=== PATIENT | female | born 1965 | race Two or more races ===

== ENCOUNTER 2016-06-02 16:06 | Inpatient (IN) | payer OTHER ==
[~2016-06-02] VITALS: Ht 167.6 cm; Wt 85.7 kg
[2016-06-02 19:50] LABS: HEMATOCRIT 33.1 % (36.0-47.0); HEMOGLOBIN 10.4 g/dL (12.0-15.5); RED BLOOD COUNT 4.29 x10^6/uL (3.50-5.40); RED CELL DISTRIBUTION WIDTH 15.5 % (11.5-14.5); WHITE BLOOD COUNT 7.4 x10^3/uL (4.0-11.0)
[2016-06-02 20:08] LABS: ALBUMIN 2.8 g/dL (3.4-5.0); ALBUMIN/GLOBULIN RATIO 0.8 (1.0-1.7); CALCIUM 8.4 mg/dL (8.5-10.1); CREATININE 0.8 mg/dL (0.6-1.0); GFR 75.9; POTASSIUM 4.2 mmol/L (3.5-5.1); TOTAL BILIRUBIN 0.2 mg/dL (0.2-1.0); TOTAL PROTEIN 6.1 g/dL (6.4-8.2)
[2016-06-02 20:59] VITALS: BP 103/57
[2016-06-02] MEDS ORDERED: LUBI24CA5 PO (21:08)
[2016-06-02] MEDS ORDERED: GABA-586 PO (21:08)
[2016-06-02] MEDS ORDERED: ONDA4TAB7 PO (21:08)
[2016-06-02] MEDS ORDERED: LACO10SO PO (21:08)
[2016-06-02] MEDS ORDERED: LEVO100T5 PO (21:08)
[2016-06-02] MEDS ORDERED: MONT10TA9 PO (21:08)
[2016-06-02] MEDS ORDERED: CLOP75TA27 PO (21:08)
[2016-06-02] MEDS ORDERED: MORPHINE IR 15 MG TABLET PO PRN (21:15)
[2016-06-02] MEDS ORDERED: PROMETHAZINE 12.5 MG TABLET. PO PRN (21:15)
[2016-06-02] MEDS ORDERED: ZONISAMIDE 100 MG CAPSULE. PO SCH (22:00)
[2016-06-02] MEDS ORDERED: LACOSAMIDE 50 MG TABLET PO SCH (22:00)
[2016-06-02] MEDS: GABAPENTIN 300 MG CAPSULE. PO SCH (22:00)
[2016-06-02] MEDS ORDERED: ONDANSETRON ODT 4 MG TAB.RAPDIS PO PRN (22:00)
[2016-06-02] MEDS: MONTELUKAST SODIUM 10 MG TABLET. PO SCH (22:00)
[2016-06-02] MEDS ORDERED: ONDANSETRON PF 4 MG/2 ML VIAL. IV PRN (22:15)
[2016-06-02] MEDS: LUBIPROSTONE 8 MCG CAPSULE PO SCH (22:30)
[2016-06-02] MEDS: VIMPAT PO SCH (22:32)
[2016-06-02 23:14] VITALS: BP 104/61
[2016-06-03] MEDS ORDERED: NON FORMULARY ITEM (Ondansetron Hcl (Zofran) 1 TAB) PO SCH
[2016-06-03] MEDS: MORPHINE SULFATE 4 MG/ML DISP.SYRIN. IV PRN ×3 (02:45→21:23)
[2016-06-03 03:30] VITALS: BP 99/57
[2016-06-03 07:23] VITALS: BP 100/56
[2016-06-03] MEDS ORDERED: LUBIPROSTONE 8 MCG CAPSULE PO SCH (08:00)
[2016-06-03] MEDS: GABAPENTIN 300 MG CAPSULE. PO SCH ×3 (08:09→21:22)
[2016-06-03] MEDS: CLOPIDOGREL BISULFATE 75 MG TABLET PO SCH (08:10)
[2016-06-03] MEDS: LUBIPROSTONE 8 MCG CAPSULE PO SCH ×2 (08:10→21:22)
[2016-06-03] MEDS: LEVOTHYROXINE 100 MCG TABLET PO SCH (08:10)
[2016-06-03] MEDS: VIMPAT PO SCH ×2 (08:13→21:23)
[2016-06-03] MEDS: ONDANSETRON PF 4 MG/2 ML VIAL. IV PRN ×2 (09:04→21:23)
[2016-06-03 09:45] LABS: BILIRUBIN,URINE NEGATIVE (NEG); GLUCOSE,URINE NEGATIVE (NEG); NITRITE,URINE NEGATIVE (NEG); PH,URINE 6.5; PROTEIN,URINE NEGATIVE (NEG-TRACE)
[2016-06-03 10:24] LABS: BACTERIA,URINE MOD /HPF (0-FEW); RBC,URINE RARE /HPF (0-2); SQUAMOUS EPITHELIAL CELL,UR FEW /LPF
[2016-06-03 11:02] VITALS: BP 104/58
--- NOTE | 2016-06-03 13:46 | HP ---
ADMIT DATE: 06/02/2016 HISTORY OF PRESENT ILLNESS: This is a 50-year-old female patient, who was admitted to [facility] complaining of difficulty walking. She was admitted originally on 05/23/2016 with a complaint of feeling unwell the whole day. Her blood sugar has been low and was seen by Dr. Patterson and was discharged home, only to come back again 2 days ago, complaining that she is unable to walk with marked weakness in both lower extremities. She was extensively investigated and she refused to be seen by Dr. Patterson, and therefore, a decision was made to transfer her to [facility] to consult the Neurology Team in this hospital. I did speak with her neurologist's office of ____ in [place], [place] and his office note showed that she has idiopathic peripheral neuropathy and seizure, for which she is on an anticonvulsant in the form of lacosamide, as well as zonisamide. She has also bilateral carpal tunnel syndrome. She did have a surgery on her neck before for spinal stenosis, and whether that is relevant to her presentation, remains to be seen. PAST MEDICAL HISTORY: Significant for type 2 diabetes mellitus that was diagnosed in 2011. She also has multiple TIAs right-sided CVA with left side hemiplegia, hypothyroidism, cervical spinal stenosis, morbid obesity, obstructive sleep apnea, COPD, bronchial asthma, epilepsy, and idiopathic peripheral neuropathy as well as bilateral carpal tunnel syndrome. PAST SURGICAL HISTORY: Significant for: 1. Cervical spine surgery for spinal stenosis. 2. Gastric sleeve surgery. The patient lost about 89 pounds in over 2 years - surgery was done in 2013. She also has cholecystectomy, appendectomy, tubal ligation, total abdominal hysterectomy, and bilateral salpingo-oophorectomy. She has also had esophagogastroduodenoscopy and colonoscopy. ALLERGIES: SHE IS ALLERGIC TO TYLENOL, ASPIRIN, CODEINE, HYDROMORPHONE, IRON, LATEX, OXYCODONE, SHELLFISH, STRAWBERRY, AND TETRACYCLINE. MEDICATIONS: She is currently on the following medications: She is on Plavix 75 mg once a day, gabapentin 300 mg 3 times a day, lacosamide 50 mg twice a day, levothyroxine 100 mcg once a day, Amitiza 24 mcg twice a day, and montelukast sodium 10 mg at bedtime. She is also on zonisamide 300 mg p.o. at bedtime. FAMILY HISTORY: She has one older brother, who is healthy and one younger sister, who has multiple medical problems, and mother is alive in her 70s and has hypertension. Father is alive at the age of 79 and is known to have thyroid problem, diabetes mellitus, and hypertension. SOCIAL HISTORY: She is , has 2 sons and 1 daughter. She is an ex-smoker, quit in 2012. She does not drink alcohol or use any recreational drugs. She used to be a certified nursing expert medical writer. She is now on disability. REVIEW OF SYSTEMS: The patient denied any blurring of vision, cataract, glaucoma, or macular degeneration. Denied any earache, tinnitus, or sensorineural deafness. Denied any nosebleeds, stuffy nose, or postnasal drip. Denied any sore throat, sore tongue, toothache, hoarseness of voice, or difficulty swallowing. Denied any nausea, vomiting, diarrhea, or constipation. Denied any hematemesis, melena, or hematochezia. Denied any dysuria, frequency, or hematuria. Denied any chest pain, shortness of breath, orthopnea, or paroxysmal nocturnal dyspnea. Denied any cough, phlegm or hemoptysis. Her only complaint is weakness and inability to walk. PHYSICAL EXAMINATION: GENERAL: On examining her, she looked pale, but no jaundice, cyanosis, or thyromegaly. No jugular venous distension. No limb edema. VITAL SIGNS: Her heart rate was 93, blood pressure was 104/58, temperature was 97.7, respiratory rate was 17, and oxygen saturation was 95%. HEAD, EYES, EARS, NOSE, AND THROAT: Showed normocephalic, atraumatic. NECK: Supple. HEART: Showed normal first and second heart sounds with no gallop, rub, or murmur. CHEST: Clear to auscultation. No crepitation or rhonchi. ABDOMEN: Distended, soft, and nontender. NEUROLOGIC: She is awake, alert, and responding appropriately. Cranial nerves are intact. EXTREMITIES: She moves her upper extremities without difficulty. She claimed that she is unable to walk and she is mostly bed-bound and chair-bound. LABORATORY DATA: Showed a serum sodium of 146, potassium 4.2, chloride 109, bicarbonate 29, anion gap of 8, BUN 16, creatinine 0.8, and estimated GFR was 76 mL per minute. Her glucose was 140, calcium was 8.4. Total bilirubin, AST, and ALT were normal. Alkaline phosphatase was slightly elevated. CK was 28. Total protein was 6.1, albumin 2.8. Vitamin B12 was 305 pg/mL and TSH was 2.127. White cell count was 7,400, hemoglobin 10.4, hematocrit 33, MCV 77, and platelet count 283,000. Her sedimentation rate was 9. Her urinalysis was essentially unremarkable. PLAN: My plan is to continue with all her current medications, consult the Neurology Team, and decide on further management accordingly. GALDYS PHILLIP MD DR: JANIS/lexis JOB#: [id number] / [id number]
[2016-06-03] MEDS ORDERED: GADOBUTROL 10 MMOL/10 ML VIAL IV ONE (14:30)
--- NOTE | 2016-06-03 14:32 | PDOC2 ---
NEUROLOGY CONSULT Date of Admission Date of Admission DATE: 06/03/16 TIME: 14:19 Reason for Consult Reason for Consult: IMPRESSION: Worsening of LE weakness and pain x 4 days. Chronic LE weakness x 5 years. Peripheral neuropathy, LE. UTI Old CVA with left side mild weakness. Seizure? Degenerative C-spine disease s/p surgery in 2011. RECOMMENDATIONS/PLAN: C/L spine MRI w/wo contrast. lab: see orders. Continue Zonisamide home regimen. Add Neurontin 100 mg tid with titration up. OT/PT. Lab: TSH, CK, ESR WNL. HISTORY OF THE PRESENT ILLNESS: 50-y-old female patient with above medical problems had C-spine surgery in 2012 , She said that she has been having LE weakness and she walks with a walker in the past 5 years, but she weakness and pain increased and she has not been able to walk in the past 4 days. No urinary or bowel dysfunction. Her UE are not involved. No cranial nerve deficits. PAST MEDICAL HISTORY: Please see above. PAST SURGERY HISTORY: C-spine surgery in 2011. ALLERGY: Reviewed. MEDICATIONS: Refer to [facility] FAMILY HISTORY: Non contributory. SOCIAL HISTORY: Denies current smoking, drinking, and illicit drug use. She smoked in the past. REVIEW OF SYSTEMS: Constitutional: No malnutrition, weight loss, cachexia. Head: No recent traumatic brain or head injury. Skin: No edema, or rash. Ear: No infection. Eyes: No vision loss or color blindness. Nose: No bleeding or purulent discharges. Hearing: No hearing decrease. Neck: C-spine surgery in 2011. Breast: No history of cancer, masses,or discharges. Cardiac: No FL, arrhythmia. Pulmonary: COPD? GI: No GI ulcer, GI bleeding. Urinary/genital: UTI. Endocrinologic: obesity. Skeletomuscular: Generalized weakness. Neurological: see HP. Psychiatric: Denies drug use/abuse. Otherwise, not [id number] review of systems. PHYSICAL EXAMINATION: General appearance is in no acute distress. HEENT: Normocephalic and nontraumatic. Eyes, nose, ears, and throat are unremarkable. Neck is supple. No lymphadenopathy. No bruits are heard over the carotid artery. No crepitus. Cardiovascular: S1, S2, regular rate and rhythm. Pulmonary: Clear to auscultation bilaterally. Abdomen: Bowel sounds are positive. Abdomen is soft, nontender, and nondistended. Extremities: No rash, lesions, or edema. No restriction of range of motion NEUROLOGICAL EXAMINATION: Alert. Sitting in chair. Oriented to time, place and person. PERRL. EOMI. CN: no focal findings. Muscle tone: within normal. Muscle strength: 5 UE, 4- LE. DTR: 2+ UE, 3 at knees, and 2+ at ankles. Plantar reflex: Flexor/Neutral response bilaterally Gait: not examined in chair. Sensory exam: no abnormal findings. No cerebellar signs elicited. F-T-N test accurate. Current Medications Current Medications Current Medications Promethazine HCl (Phenergan) 25 mg PRN Q6HRS PRN PO NAUSEA/VOMITING; Start at 21:15 Zonisamide (Zonegran) 100 mg HS PO ; Start 06/02/16 at 22:00; Stop 06/03/16 at 12:14; Status DC Albuterol Sulfate (Ventolin Neb Soln) 2.5 mg PRN Q4HRS PRN NEB SHORTNESS OF BREATH; Start 06/02/16 at 21:15 Clopidogrel Bisulfate (Plavix) 75 mg DAILY PO Last administered on 06/03/16 08 :10; Start 06/03/16 at 09:00 Gabapentin (Neurontin) 300 mg TID PO Last administered on 06/03/16 08:09; Start 06/02/16 at 22:00 Levothyroxine Sodium (Synthroid) 100 mcg DAILY07 PO Last administered on 08:10; Start 06/03/16 at 09:00 Montelukast Sodium (Singulair) 10 mg HS PO Last administered on 06/02/16 22:00 ; Start 06/02/16 at 22:00 Lacosamide (Vimpat) 50 mg BID PO ; Start 06/02/16 at 22:00; Status Cancel Lubiprostone (Amitiza) 24 mcg BIDWMEALS PO ; Start 06/03/16 at 08:00; Stop 06/03 at 08:00; Status DC Non-Formulary Medication 1 tab Q6HRS PO ; Start 06/03/16 at 00:00; Stop at 00:00; Status DC Morphine Sulfate (Morphine Ir) 15 mg PRN Q8HRS PRN PO PAIN; Start 06/02/16 at 21:15 Ondansetron HCl (Zofran Odt) 4 mg PRN Q6HRS PRN PO NAUSEA; Start 06/02/16 at 22 :00; Status Cancel Lubiprostone (Amitiza) 24 mcg BID PO Last administered on 06/03/16 08:10; Start 06/02/16 at 23:00 Ondansetron HCl (Zofran) 4 mg PRN Q6HRS PRN IV NAUSEA/VOMITING Last administered on 06/02/16 22:30; Start 06/02/16 at 22:15; Stop 06/03/16 at 06:21 ; Status DC Non-Formulary Medication 1 ea BID PO Last administered on 06/03/16 08:13; Start 06/02/16 at 23:00 Morphine Sulfate 4 mg PRN Q4HRS PRN IV SEVERE PAIN Last administered on 02:45; Start 06/03/16 at 02:30 Ondansetron HCl (Zofran) 4 mg PRN Q6HRS PRN IV NAUSEA/VOMITING Last administered on 06/03/16 09:04; Start 06/03/16 at 06:21 Zonisamide (Zonegran) 300 mg QHS PO ; Start 06/03/16 at 21:00 Active Scripts Active Reported Zofran (Ondansetron Hcl) 4 Mg Tablet 1 Tab PO Q6HRS Vimpat (Lacosamide) 10 Mg/1 Ml Solution 5 Ml PO BID Montelukast Sodium Tablet (Montelukast Sodium) 10 Mg Tablet 10 Mg PO HS Amitiza (Lubiprostone) 24 Mcg Capsule 1 Cap PO BID Levothyroxine Sodium 100 Mcg Tablet 1 Tab PO DAILY Neurontin (Gabapentin) 300 Mg Capsule 300 Mg PO TID Plavix (Clopidogrel Bisulfate) 75 Mg Tablet 1 Tab PO DAILY Allergies Allergies: Coded Allergies: latex (Verified Allergy, Intermediate, 06/02/16) shellfish derived (Verified Allergy, Intermediate, 06/02/16) acetaminophen (Verified Allergy, Mild, 06/02/16) aspirin (Verified Allergy, Mild, 06/02/16) codeine (Verified Allergy, Mild, 06/02/16) hydromorphone (Verified Allergy, Mild, 06/02/16) iron (Verified Allergy, Mild, 06/02/16) oxycodone (Verified Allergy, Mild, 06/02/16) strawberry (Verified Allergy, Mild, 06/02/16) tetracycline (Verified Allergy, Mild, 06/02/16) Vitals VITALS Vital Signs Date Time Temp Pulse Resp B/P Pulse Ox O2 Delivery O2 Flow Rate FiO2 06/03/16 11:02 97.7 93 17 104/58 95 Room Air 97.7 Labs Labs Laboratory Tests Test 06/02/16 19:45 06/03/16 07:26 06/03/16 08:59 White Blood Count 7.4x10^3/uL (4.0-11.0) Red Blood Count 4.29x10^6/uL (3.50-5.40) Hemoglobin 10.4g/dL (12.0-15.5) Hematocrit 33.1% (36.0-47.0) Mean Corpuscular Volume 77fL (79-100) Mean Corpuscular Hemoglobin 24pg (25-35) Mean Corpuscular Hemoglobin Concent 32g/dL (31-37) Red Cell Distribution Width 15.5% (11.5-14.5) Platelet Count 283x10^3/uL (140-400) Erythrocyte Sedimentation Rate 9 (0-25) Sodium Level 146mmol/L (136-145) Potassium Level 4.2mmol/L (3.5-5.1) Chloride Level 109mmol/L (98-107) Carbon Dioxide Level 29mmol/L (21-32) Anion Gap 8 (6-14) Blood Urea Nitrogen 16mg/dL (7-20) Creatinine 0.8mg/dL (0.6-1.0) Estimated GFR (Cockcroft-Gault) 75.9 BUN/Creatinine Ratio 20 (6-20) Glucose Level 140mg/dL (70-99) Calcium Level 8.4mg/dL (8.5-10.1) Total Bilirubin 0.2mg/dL (0.2-1.0) Aspartate Amino Transf (AST/SGOT) 18U/L (15-37) Alanine Aminotransferase (ALT/SGPT) 24U/L (14-59) Alkaline Phosphatase 121U/L (46-116) Creatine Kinase 28U/L (26-192) Total Protein 6.1g/dL (6.4-8.2) Albumin 2.8g/dL (3.4-5.0) Albumin/Globulin Ratio 0.8 (1.0-1.7) Vitamin B12 Level 305pg/mL (247-911) Thyroid Stimulating Hormone (TSH) 2.127uIU/mL (0.358-3.74) Glucose (Fingerstick) 83mg/dL (70-99) Urine Collection Type Unknown Urine Color Yellow Urine Clarity Clear Urine pH 6.5 Urine Specific [place] >=1.030 Urine Protein Negativemg/dL (NEG-TRACE) Urine Glucose (UA) Negativemg/dL (NEG) Urine Ketones (Stick) Negativemg/dL (NEG) Urine Blood Negative (NEG) Urine Nitrite Negative (NEG) Urine Bilirubin Negative (NEG) Urine Urobilinogen Dipstick 1.0mg/dL (0.2 mg/dL) Urine Leukocyte Esterase Small (NEG) Urine RBC Rare/HPF (0-2) Urine WBC 5-10/HPF (0-4) Urine Squamous Epithelial Cells Few/LPF Urine Bacteria Mod/HPF (0-FEW) Urine Mucus Mod/LPF Laboratory Tests Test 06/02/16 19:45 06/03/16 07:26 06/03/16 08:59 White Blood Count 7.4x10^3/uL (4.0-11.0) Red Blood Count 4.29x10^6/uL (3.50-5.40) Hemoglobin 10.4g/dL (12.0-15.5) Hematocrit 33.1% (36.0-47.0) Mean Corpuscular Volume 77fL (79-100) Mean Corpuscular Hemoglobin 24pg (25-35) Mean Corpuscular Hemoglobin Concent 32g/dL (31-37) Red Cell Distribution Width 15.5% (11.5-14.5) Platelet Count 283x10^3/uL (140-400) Erythrocyte Sedimentation Rate 9 (0-25) Sodium Level 146mmol/L (136-145) Potassium Level 4.2mmol/L (3.5-5.1) Chloride Level 109mmol/L (98-107) Carbon Dioxide Level 29mmol/L (21-32) Anion Gap 8 (6-14) Blood Urea Nitrogen 16mg/dL (7-20) Creatinine 0.8mg/dL (0.6-1.0) Estimated GFR (Cockcroft-Gault) 75.9 BUN/Creatinine Ratio 20 (6-20) Glucose Level 140mg/dL (70-99) Calcium Level 8.4mg/dL (8.5-10.1) Total Bilirubin 0.2mg/dL (0.2-1.0) Aspartate Amino Transf (AST/SGOT) 18U/L (15-37) Alanine Aminotransferase (ALT/SGPT) 24U/L (14-59) Alkaline Phosphatase 121U/L (46-116) Creatine Kinase 28U/L (26-192) Total Protein 6.1g/dL (6.4-8.2) Albumin 2.8g/dL (3.4-5.0) Albumin/Globulin Ratio 0.8 (1.0-1.7) Vitamin B12 Level 305pg/mL (247-911) Thyroid Stimulating Hormone (TSH) 2.127uIU/mL (0.358-3.74) Glucose (Fingerstick) 83mg/dL (70-99) Urine Collection Type Unknown Urine Color Yellow Urine Clarity Clear Urine pH 6.5 Urine Specific [place] >=1.030 Urine Protein Negativemg/dL (NEG-TRACE) Urine Glucose (UA) Negativemg/dL (NEG) Urine Ketones (Stick) Negativemg/dL (NEG) Urine Blood Negative (NEG) Urine Nitrite Negative (NEG) Urine Bilirubin Negative (NEG) Urine Urobilinogen Dipstick 1.0mg/dL (0.2 mg/dL) Urine Leukocyte Esterase Small (NEG) Urine RBC Rare/HPF (0-2) Urine WBC 5-10/HPF (0-4) Urine Squamous Epithelial Cells Few/LPF Urine Bacteria Mod/HPF (0-FEW) Urine Mucus Mod/LPF MIRANDA STEWARD MD Jun 03, 2016 14:32
[2016-06-03 15:12] VITALS: BP 86/43
--- NOTE | 2016-06-03 15:15 | RAD ---
PROCEDURE MRI lumbar spine with and without contrast. HISTORY Lower extremity weakness with difficulty walking. No prior surgery. TECHNIQUE Sagittal T1, sagittal T2, sagittal STIR, axial T1, and axial T2 sequences are provided. 8 milliliters of intravenous Gadavist was administered and post-contrast axial and sagittal imaging was then performed. COMPARISON None. FINDINGS There is negligible retrolisthesis at L5-S1. There is no worrisome marrow lesion. There is no marrow edema. Disc height is maintained and discs appear well-hydrated. There is no pathologic enhancement. The conus medullaris is normal in signal intensity and in position. Subcutaneous edema is noted. The numbering system assumes 5 lumbar type vertebral bodies. Findings by individual level are as follows: L1-L2, L2-L3: There is no canal or foraminal compromise. L3-L4: This is the first level included in the axial plane. Minimal facet hypertrophy is noted without canal or foraminal compromise. L4-L5: There is mild facet hypertrophy without canal or foraminal compromise. There is also probably a left far lateral protrusion. L5-S1: In addition to the retrolisthesis there is a disc osteophyte complex and minimal facet hypertrophy. There is no canal or foraminal compromise. IMPRESSION - There are mild degenerative changes in the lumbar spine, findings do not result in any high-grade canal or foraminal compromise at any level. - There is no pathologic enhancement. Electronically signed by: Mani Cortes MD (Jun 03, 2016 15:14:14)
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
[2016-06-03] MEDS ORDERED: PANTOPRAZOLE 40 MG TABLET. PO SCH (18:00)
[2016-06-03] MEDS: methylPREDNISolone 4 MG TABLET. PO SCH ×4 (18:36→18:38)
[2016-06-03 19:30] VITALS: BP 115/59
[2016-06-03] MEDS: ZONISAMIDE 100 MG CAPSULE. PO SCH (21:00)
[2016-06-03] MEDS: BACLOFEN 10 MG TABLET. PO PRN (21:22)
[2016-06-03] MEDS: MONTELUKAST SODIUM 10 MG TABLET. PO SCH (21:22)
[2016-06-03 23:11] VITALS: BP 101/56
[2016-06-03] MEDS: ALBUTEROL SULFATE 2.5 MG/3 ML NEBU. NEB PRN (23:12)
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
[2016-06-04 03:31] VITALS: BP 95/56
[2016-06-04] MEDS ORDERED: PANTOPRAZOLE 40 MG TABLET.DR. PO ONE (06:02)
[2016-06-04] MEDS: LEVOTHYROXINE 100 MCG TABLET PO SCH (06:25)
[2016-06-04] MEDS: PANTOPRAZOLE 40 MG TABLET.DR. PO SCH (06:26)
[2016-06-04 07:12] VITALS: BP 97/52
--- NOTE | 2016-06-04 09:29 | PDOC ---
PROGRESS NOTES Subjective Subjective No new complaints. Objective Objective Vital Signs Date Time Temp Pulse Resp B/P Pulse Ox O2 Delivery O2 Flow Rate FiO2 06/04/16 07:12 97.6 82 19 97/52 95 Room Air 97.6 Intake and Output 06/04/16 07:00 Intake Total 1880 ml Output Total 500 ml Balance 1380 ml Intake Oral 1880 ml Output Urine Total 500 ml # Voids 4 # Bowel Movements 1 Physical Exam Physical Exam She is alert and comfortable supine in bed but continues with painfully limited ROM of cervical and lumbar spine with tenderness to palpation over cervical, upper thoracic,lumbar paraspinal,posterior shoulder girdle muscles,sacroiliac joints bilaterally and hyperreflexia at both knees and ankles. Plan Plan of Care Waiting for neurosurgical advise about her cervical spinal stenosis and also to obtain thoracic spine mri scan to rule out any stenosis at that level. Comment Review of Relevant I have reviewed the following items ever (where applicable) has been applied. Labs Laboratory Tests Test 06/02/16 19:45 06/03/16 07:26 06/03/16 08:59 06/03/16 16:54 White Blood Count 7.4x10^3/uL (4.0-11.0) Red Blood Count 4.29x10^6/uL (3.50-5.40) Hemoglobin 10.4g/dL (12.0-15.5) Hematocrit 33.1% (36.0-47.0) Mean Corpuscular Volume 77fL (79-100) Mean Corpuscular Hemoglobin 24pg (25-35) Mean Corpuscular Hemoglobin Concent 32g/dL (31-37) Red Cell Distribution Width 15.5% (11.5-14.5) Platelet Count 283x10^3/uL (140-400) Erythrocyte Sedimentation Rate 9 (0-25) Sodium Level 146mmol/L (136-145) Potassium Level 4.2mmol/L (3.5-5.1) Chloride Level 109mmol/L (98-107) Carbon Dioxide Level 29mmol/L (21-32) Anion Gap 8 (6-14) Blood Urea Nitrogen 16mg/dL (7-20) Creatinine 0.8mg/dL (0.6-1.0) Estimated GFR (Cockcroft-Gault) 75.9 BUN/Creatinine Ratio 20 (6-20) Glucose Level 140mg/dL (70-99) Calcium Level 8.4mg/dL (8.5-10.1) Total Bilirubin 0.2mg/dL (0.2-1.0) Aspartate Amino Transf (AST/SGOT) 18U/L (15-37) Alanine Aminotransferase (ALT/SGPT) 24U/L (14-59) Alkaline Phosphatase 121U/L (46-116) Creatine Kinase 28U/L (26-192) Total Protein 6.1g/dL (6.4-8.2) Albumin 2.8g/dL (3.4-5.0) Albumin/Globulin Ratio 0.8 (1.0-1.7) Vitamin B12 Level 305pg/mL (247-911) Thyroid Stimulating Hormone (TSH) 2.127uIU/mL (0.358-3.74) Glucose (Fingerstick) 83mg/dL (70-99) 164mg/dL (70-99) Urine Collection Type Unknown Urine Color Yellow Urine Clarity Clear Urine pH 6.5 Urine Specific [place] >=1.030 Urine Protein Negativemg/dL (NEG-TRACE) Urine Glucose (UA) Negativemg/dL (NEG) Urine Ketones (Stick) Negativemg/dL (NEG) Urine Blood Negative (NEG) Urine Nitrite Negative (NEG) Urine Bilirubin Negative (NEG) Urine Urobilinogen Dipstick 1.0mg/dL (0.2 mg/dL) Urine Leukocyte Esterase Small (NEG) Urine RBC Rare/HPF (0-2) Urine WBC 5-10/HPF (0-4) Urine Squamous Epithelial Cells Few/LPF Urine Bacteria Mod/HPF (0-FEW) Urine Mucus Mod/LPF Test 06/03/16 21:00 06/04/16 07:38 Glucose (Fingerstick) 133mg/dL (70-99) 113mg/dL (70-99) Laboratory Tests Test 06/03/16 16:54 06/03/16 21:00 06/04/16 07:38 Glucose (Fingerstick) 164mg/dL (70-99) 133mg/dL (70-99) 113mg/dL (70-99) Medications Current Medications Promethazine HCl (Phenergan) 25 mg PRN Q6HRS PRN PO NAUSEA/VOMITING; Start at 21:15 Zonisamide (Zonegran) 100 mg HS PO ; Start 06/02/16 at 22:00; Stop 06/03/16 at 12:14; Status DC Albuterol Sulfate (Ventolin Neb Soln) 2.5 mg PRN Q4HRS PRN NEB SHORTNESS OF BREATH Last administered on 06/03/16 23:12; Start 06/02/16 at 21:15 Clopidogrel Bisulfate (Plavix) 75 mg DAILY PO Last administered on 06/03/16 08 :10; Start 06/03/16 at 09:00 Gabapentin (Neurontin) 300 mg TID PO Last administered on 06/03/16 21:22; Start 06/02/16 at 22:00 Levothyroxine Sodium (Synthroid) 100 mcg DAILY07 PO Last administered on 06:25; Start 06/03/16 at 09:00 Montelukast Sodium (Singulair) 10 mg HS PO Last administered on 06/03/16 21:22 ; Start 06/02/16 at 22:00 Lacosamide (Vimpat) 50 mg BID PO ; Start 06/02/16 at 22:00; Status Cancel Lubiprostone (Amitiza) 24 mcg BIDWMEALS PO ; Start 06/03/16 at 08:00; Stop 06/03 at 08:00; Status DC Non-Formulary Medication 1 tab Q6HRS PO ; Start 06/03/16 at 00:00; Stop at 00:00; Status DC Morphine Sulfate (Morphine Ir) 15 mg PRN Q8HRS PRN PO PAIN; Start 06/02/16 at 21:15 Ondansetron HCl (Zofran Odt) 4 mg PRN Q6HRS PRN PO NAUSEA; Start 06/02/16 at 22 :00; Status Cancel Lubiprostone (Amitiza) 24 mcg BID PO Last administered on 06/03/16 21:22; Start 06/02/16 at 23:00 Ondansetron HCl (Zofran) 4 mg PRN Q6HRS PRN IV NAUSEA/VOMITING Last administered on 06/02/16 22:30; Start 06/02/16 at 22:15; Stop 06/03/16 at 06:21 ; Status DC Non-Formulary Medication 1 ea BID PO Last administered on 06/03/16 21:23; Start 06/02/16 at 23:00 Morphine Sulfate 4 mg PRN Q4HRS PRN IV SEVERE PAIN Last administered on 21:23; Start 06/03/16 at 02:30 Ondansetron HCl (Zofran) 4 mg PRN Q6HRS PRN IV NAUSEA/VOMITING Last administered on 06/03/16 21:23; Start 06/03/16 at 06:21 Zonisamide (Zonegran) 300 mg QHS PO ; Start 06/03/16 at 21:00 Gadobutrol (Gadavist) 8 mmol 1X ONCE IV Last administered on 06/03/16 14:52; Start 06/03/16 at 14:30; Stop 06/03/16 at 14:31; Status DC Baclofen (Lioresal) 10 mg PRN Q6HRS PRN PO MUSCLE SPASMS Last administered on 21:22; Start 06/03/16 at 17:30 Methylprednisolone (Medrol) 8 mg BID PO Last administered on 06/03/16 18:38; Start 06/03/16 at 09:00; Stop 06/03/16 at 21:01; Status DC Methylprednisolone (Medrol) 4 mg BIDPCLD PO Last administered on 06/03/16 18: 37; Start 06/03/16 at 12:30; Stop 06/03/16 at 17:39; Status DC Methylprednisolone (Medrol) 4 mg TIDPC PO ; Start 06/04/16 at 08:30; Stop at 17:31 Methylprednisolone (Medrol) 8 mg QHS PO ; Start 06/04/16 at 21:00; Stop at 21:01 Methylprednisolone (Medrol) 4 mg QIDAFTMEAL PO ; Start 06/05/16 at 09:00; Stop at 21:01 Methylprednisolone (Medrol) 4 mg TID PO ; Start 06/06/16 at 09:00; Stop 06/06/16 at 21:01 Methylprednisolone (Medrol) 4 mg BID PO ; Start 06/07/16 at 09:00; Stop 06/07/16 at 21:01 Methylprednisolone (Medrol) 4 mg DAILY PO ; Start 06/08/16 at 09:00; Stop at 09:01 Pantoprazole Sodium (Protonix) 40 mg DAILYAC PO Last administered on 06/03/16 18:35; Start 06/03/16 at 18:00; Stop 06/04/16 at 06:23; Status DC Pantoprazole Sodium (Protonix) 40 mg STK-MED ONCE PO ; Start 06/04/16 at 06:02; Stop 06/04/16 at 06:03; Status DC Pantoprazole Sodium (Protonix) 40 mg DAILYAC PO Last administered on 06/04/16 06:26; Start 06/04/16 at 07:30 Active Scripts Active Reported Zofran (Ondansetron Hcl) 4 Mg Tablet 1 Tab PO Q6HRS Vimpat (Lacosamide) 10 Mg/1 Ml Solution 5 Ml PO BID Montelukast Sodium Tablet (Montelukast Sodium) 10 Mg Tablet 10 Mg PO HS Amitiza (Lubiprostone) 24 Mcg Capsule 1 Cap PO BID Levothyroxine Sodium 100 Mcg Tablet 1 Tab PO DAILY Neurontin (Gabapentin) 300 Mg Capsule 300 Mg PO TID Plavix (Clopidogrel Bisulfate) 75 Mg Tablet 1 Tab PO DAILY Vitals/I & O Vital Sign - Last 24 Hours 06/03/16 06/03/16 06/03/16 06/03/16 11:02 15:12 15:51 19:30 Temp 97.7 97.9 97.7 97.7 97.9 97.7 Pulse 93 85 91 Resp 17 17 20 20 B/P 104/58 86/43 115/59 Pulse Ox 95 95 97 O2 Delivery Room Air Room Air Room Air Room Air 06/03/16 06/03/16 06/03/16 06/03/16 20:00 21:23 21:53 23:11 Temp 98.1 98.1 Pulse 85 Resp 18 18 16 B/P 101/56 Pulse Ox 97 97 90 O2 Delivery Room Air Room Air Room Air Room Air 06/03/16 06/03/16 06/04/16 06/04/16 23:12 23:18 03:31 07:12 Temp 97.5 97.6 97.5 97.6 Pulse 89 82 Resp 20 19 B/P 95/56 97/52 Pulse Ox 100 100 100 95 O2 Delivery Room Air Room Air Room Air Room Air Intake and Output 06/03/16 06/03/16 06/04/16 15:00 23:00 07:00 Intake Total 500 ml 660 ml 720 ml Output Total 300 ml 200 ml Balance 500 ml 360 ml 520 ml MONTY CASTILLO MD Jun 04, 2016 09:29
--- NOTE | 2016-06-04 10:36 | RAD ---
PROCEDURE MRI thoracic spine without contrast. HISTORY Spastic paraparesis. Bilateral arm pain and leg weakness. TECHNIQUE Sagittal T1, sagittal T2, sagittal STIR, axial T1, and axial T2 sequences are provided. COMPARISON None. FINDINGS Chronic superior endplate compression fractures are noted at T2 and T3, slight wedging. Any collapse is less than 10 percent. There is no evidence of an acute compression fracture. Small hemangiomas are noted at T3 and T8. There is no worrisome marrow lesion. There is no malalignment. There is no cord signal abnormality. Left thyroid nodule measures 9 millimeters. There is no definite canal or foraminal compromise at any level. T2 hyperintense lesion is noted in the spleen measuring 2.2 centimeters, could represent cyst or lymphangioma. T2 hyperintense lesion in the liver is partially included measuring 11 millimeters, most commonly either a cyst or hemangioma. Consider dedicated imaging of the abdomen if warranted clinically. IMPRESSION 1. No acute thoracic findings. No high-grade canal or foraminal compromise at any level. 2. Chronic appearing superior endplate compression deformities at T2 and T3. Electronically signed by: Mani Cortes MD (Jun 04, 2016 10:34:47)
[2016-06-04 11:05] VITALS: BP 121/67
[2016-06-04] MEDS: CLOPIDOGREL BISULFATE 75 MG TABLET PO SCH (11:19)
[2016-06-04] MEDS: GABAPENTIN 300 MG CAPSULE. PO SCH ×3 (11:20→21:14)
[2016-06-04] MEDS: LUBIPROSTONE 8 MCG CAPSULE PO SCH ×2 (11:20→21:14)
[2016-06-04] MEDS: methylPREDNISolone 4 MG TABLET. PO SCH ×2 (11:20→11:21)
[2016-06-04] MEDS: VIMPAT PO SCH ×2 (11:24→21:12)
--- NOTE | 2016-06-04 13:31 | PDOC ---
Provider Note Provider Note Patient seen with Dr. Gray Recommended Anterior cervical discectomy and fusion C3-4, C4-5. Strength intact. Took plavix this morning. Plavix would need to be held 5 days pre op. Could plan for surgery next week if medically cleared. Will continue steroids, change to Decadron. Monitor for changes. Full consult to follow. GONZALEZ BRONSON APRN Jun 04, 2016 13:31
[2016-06-04 15:15] VITALS: BP 120/77
--- NOTE | 2016-06-04 16:36 | PDOC ---
PROGRESS NOTES Assessment Assessment Chronic LE weakness worse x 4 days before admission. Seizure? Degenerative C-spine disease s/p surgery in 2011. Degenerative C3- C4 changes and post surgical changes at C5-C7 that may not fully explain her LE weakness. No motor or sensory deficits in UE. No urinary and bowel dysfunctions. RECOMMENDATIONS/PLAN: Consulted Dr. Rivera and NS. C-spine surgery per her and NS. Neurology sign off (due to her inappropriate statements that can negatively affect care and physician-patient and physician-physician relationship). Objective Objective Vital Signs Date Time Temp Pulse Resp B/P Pulse Ox O2 Delivery O2 Flow Rate FiO2 06/04/16 15:15 98.1 105 19 120/77 94 Room Air 98.1 Intake and Output 06/04/16 07:00 Intake Total 1880 ml Output Total 500 ml Balance 1380 ml Intake Oral 1880 ml Output Urine Total 500 ml # Voids 4 # Bowel Movements 1 Vitals Signs Vitals VS - Last 72 Hours, by Label Date Time Temp Pulse Resp B/P Pulse Ox O2 Delivery O2 Flow Rate FiO2 06/04/16 15:15 98.1 105 19 120/77 94 Room Air 98.1 06/04/16 11:05 97.7 91 18 121/67 98 Room Air 97.7 06/04/16 07:12 97.6 82 19 97/52 95 Room Air 97.6 06/04/16 03:31 97.5 89 20 95/56 100 Room Air 97.5 06/03/16 23:18 100 Room Air 06/03/16 23:12 100 Room Air 06/03/16 23:11 98.1 85 16 101/56 90 Room Air 98.1 06/03/16 21:53 18 97 Room Air 06/03/16 21:23 18 97 Room Air 06/03/16 20:00 Room Air 06/03/16 19:30 97.7 91 20 115/59 97 Room Air 97.7 06/03/16 15:51 20 Room Air 06/03/16 15:12 97.9 85 17 86/43 95 Room Air 97.9 06/03/16 11:02 97.7 93 17 104/58 95 Room Air 97.7 06/03/16 08:13 97 Room Air 06/03/16 08:00 Room Air 06/03/16 07:23 97.8 73 17 100/56 99 Room Air 97.8 Laboratory Laboratory Laboratory Tests Test 06/03/16 16:54 06/03/16 21:00 06/04/16 07:38 06/04/16 11:13 Glucose (Fingerstick) 164mg/dL (70-99) 133mg/dL (70-99) 113mg/dL (70-99) 141mg/dL (70-99) Medication Medications Current Medications Baclofen (Lioresal) 10 mg PRN Q6HRS PRN PO MUSCLE SPASMS Last administered on 21:22; Start 06/03/16 at 17:30 Methylprednisolone (Medrol) 4 mg BID PO ; Start 06/07/16 at 09:00; Stop 06/07/16 at 21:01 Methylprednisolone (Medrol) 4 mg DAILY PO ; Start 06/08/16 at 09:00; Stop at 09:01 Methylprednisolone (Medrol) 4 mg QIDAFTMEAL PO ; Start 06/05/16 at 09:00; Stop at 21:01 Methylprednisolone (Medrol) 4 mg TID PO ; Start 06/06/16 at 09:00; Stop 06/06/16 at 21:01 Methylprednisolone (Medrol) 4 mg TIDPC PO Last administered on 06/04/16 11:21 ; Start 06/04/16 at 08:30; Stop 06/04/16 at 17:31 Methylprednisolone (Medrol) 8 mg QHS PO Last administered on 06/04/16 11:22; Start 06/04/16 at 21:00; Stop 06/04/16 at 21:01 Pantoprazole Sodium (Protonix) 40 mg DAILYAC PO Last administered on 06/03/16 18:35; Start 06/03/16 at 18:00; Stop 06/04/16 at 06:23; Status DC Pantoprazole Sodium (Protonix) 40 mg DAILYAC PO Last administered on 06/04/16 06:26; Start 06/04/16 at 07:30 Pantoprazole Sodium (Protonix) 40 mg STK-MED ONCE PO ; Start 06/04/16 at 06:02; Stop 06/04/16 at 06:03; Status DC Zonisamide (Zonegran) 300 mg QHS PO ; Start 06/03/16 at 21:00 Comment Review of Relevant I have reviewed the following items ever (where applicable) has been applied. MIRANDA STEWARD MD Jun 04, 2016 16:36
[2016-06-04 19:05] VITALS: BP 105/60
--- NOTE | 2016-06-04 19:57 | EEG ---
DATE OF SERVICE: 06/04/2016 OBJECTIVE: This is a 50-year-old female patient with reportedly history of seizure. EEG was requested to evaluate seizure activity. METHODS: Sixteen electrodes were applied according to the international 10-20 electrode placement system. EKG monitoring, hyperventilation, intermittent photic stimulation, monopolar and bipolar montages are routinely utilized. The record was obtained on a digital system with video monitoring. FINDINGS: 1. Background: The patient was recorded in the awake and drowsy states. No actual sleep state was recorded. The overall background amplitude is 10-30 microvolts. A posterior dominant rhythm of 8-9 Hz is observed. 2. Abnormalities: No specific epileptiform discharge or electrographic seizure is seen. No focal or diffuse slowing. 3. Activation: Hyperventilation was performed with fair efforts and normal response. Intermittent photic stimulation was performed with photic driving. No specific epileptiform discharge or electrographic seizure induced by hyperventilation or intermittent photic stimulation. IMPRESSION: This EEG is a normal study for the awake and drowsy states. No actual sleep state was recorded. No focal, lateralizing, specific epileptiform discharge or electrographic seizure is seen. MIRANDA STEWARD MD DR: PHILLIP/lexis JOB#: [id number] / [id number] LULY
[2016-06-04] MEDS: ZONISAMIDE 100 MG CAPSULE. PO SCH (21:00)
[2016-06-04] MEDS ORDERED: methylPREDNISolone 4 MG TABLET. PO SCH (21:00)
[2016-06-04] MEDS: MONTELUKAST SODIUM 10 MG TABLET. PO SCH (21:14)
[2016-06-04 23:05] VITALS: BP 106/64
[2016-06-04] MEDS: MORPHINE SULFATE 4 MG/ML DISP.SYRIN. IV PRN (23:15)
[2016-06-04] MEDS: ONDANSETRON PF 4 MG/2 ML VIAL. IV PRN (23:15)
[2016-06-04] MEDS: BACLOFEN 10 MG TABLET. PO PRN (23:21)
--- NOTE | 2016-06-05 00:10 | PN ---
DATE: 06/04/2016 SUBJECTIVE: The patient is sitting comfortably in her chair in no apparent distress. She apparently was seen by the neurologist as well as Dr. Rivera, who ordered an MRI of the cervical spine, which showed that she has worsening cervical spine stenosis at the level of C3-C4 and they recommended neurosurgical consultation as the patient might require surgical intervention. PHYSICAL EXAMINATION: GENERAL: When I examined her this afternoon, she looked well and was clearly in no apparent respiratory distress, pale, no jaundice, cyanosis or thyromegaly. No jugular venous distension. No limb edema. VITAL SIGNS: Her heart rate was 82, blood pressure was 97/52, temperature was 97.6, respiratory rate was 19, and oxygen saturation was 95%. The rest of the clinical examination is unremarkable. LABORATORY DATA: Showed that her serum sodium 146, potassium 4.2, chloride 109, bicarbonate 29, anion gap of 8, BUN 16, creatinine 0.8, estimated GFR was 76 mL per minute. Her liver enzymes are all normal. Total protein was 6.1, albumin was 2.8. White cell count 7400, hemoglobin 10, hematocrit 33, MCV 77, and platelet count 283,000. 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 PLAN: To await evaluation by neurosurgical team. GLADYS PHILLIP MD DR: JANIS/lexis JOB#: [id number] / [id number]
[2016-06-05 03:05] VITALS: BP 97/60
[2016-06-05 05:32] LABS: BASO % 0 % (0-3); EOS % 0 % (0-3); HEMATOCRIT 33.4 % (36.0-47.0); HEMOGLOBIN 10.8 g/dL (12.0-15.5); LYMPH # 1.8 x10^3/uL (1.0-4.8); LYMPH % 18 % (24-48); MEAN CORPUSCULAR HEMOGLOBIN 25 pg (25-35); MEAN CORPUSCULAR HGB CONC 32 g/dL (31-37); MEAN CORPUSCULAR VOLUME 76 fL (79-100); MONO % 5 % (0-9); NEUT % 77 % (31-73); PLATELET COUNT 320 x10^3/uL (140-400); RED BLOOD COUNT 4.42 x10^6/uL (3.50-5.40); RED CELL DISTRIBUTION WIDTH 15.9 % (11.5-14.5); WHITE BLOOD COUNT 9.9 x10^3/uL (4.0-11.0)
[2016-06-05 06:05] LABS: ALBUMIN/GLOBULIN RATIO 0.9 (1.0-1.7); CALCIUM 8.6 mg/dL (8.5-10.1); CREATININE 0.7 mg/dL (0.6-1.0); GFR 88.6; POTASSIUM 3.9 mmol/L (3.5-5.1); TOTAL BILIRUBIN 0.2 mg/dL (0.2-1.0); TOTAL PROTEIN 6.2 g/dL (6.4-8.2)
[2016-06-05] MEDS: PANTOPRAZOLE 40 MG TABLET.DR. PO SCH (06:37)
[2016-06-05] MEDS: MORPHINE SULFATE 4 MG/ML DISP.SYRIN. IV PRN ×2 (06:37→22:06)
[2016-06-05] MEDS: LEVOTHYROXINE 100 MCG TABLET PO SCH (06:37)
[2016-06-05 07:05] VITALS: BP 94/49
[2016-06-05] MEDS ORDERED: GABAPENTIN 300 MG CAPSULE. PO ONE ×2 (08:00→13:12)
[2016-06-05] MEDS: ONDANSETRON PF 4 MG/2 ML VIAL. IV PRN ×2 (08:52→22:04)
[2016-06-05] MEDS: LUBIPROSTONE 8 MCG CAPSULE PO SCH ×2 (08:53→21:55)
[2016-06-05] MEDS: CLOPIDOGREL BISULFATE 75 MG TABLET PO SCH (08:53)
[2016-06-05] MEDS: GABAPENTIN 300 MG CAPSULE. PO SCH ×4 (08:53→21:57)
[2016-06-05] MEDS ORDERED: methylPREDNISolone 4 MG TABLET. PO SCH (09:00)
[2016-06-05] MEDS: VIMPAT PO SCH ×2 (09:00→21:58)
[2016-06-05 10:30] VITALS: BP 114/71
--- NOTE | 2016-06-05 12:02 | PDOC ---
PROGRESS NOTES Subjective Subjective She feels better with her low back pain with lumbar corset. Objective Objective Vital Signs Date Time Temp Pulse Resp B/P Pulse Ox O2 Delivery O2 Flow Rate FiO2 06/05/16 10:30 97.6 87 18 114/71 95 Room Air 97.6 Intake and Output 06/05/16 06:59 Intake Total 1400 ml Output Total 1600 ml Balance -200 ml Intake Oral 1400 ml Output Urine Total 1600 ml Physical Exam Physical Exam She is sitting up in bedside chair and she continues with ataxia while trying to walk with roller walker at bedside. Plan Plan of Care Await cervical decompression laminectomy. Comment Review of Relevant I have reviewed the following items ever (where applicable) has been applied. Labs Laboratory Tests Test 06/03/16 16:54 06/03/16 21:00 06/04/16 07:38 06/04/16 11:13 Glucose (Fingerstick) 164mg/dL (70-99) 133mg/dL (70-99) 113mg/dL (70-99) 141mg/dL (70-99) Test 06/04/16 17:15 06/04/16 20:54 06/05/16 04:45 06/05/16 07:24 Glucose (Fingerstick) 181mg/dL (70-99) 183mg/dL (70-99) 88mg/dL (70-99) White Blood Count 9.9x10^3/uL (4.0-11.0) Red Blood Count 4.42x10^6/uL (3.50-5.40) Hemoglobin 10.8g/dL (12.0-15.5) Hematocrit 33.4% (36.0-47.0) Mean Corpuscular Volume 76fL (79-100) Mean Corpuscular Hemoglobin 25pg (25-35) Mean Corpuscular Hemoglobin Concent 32g/dL (31-37) Red Cell Distribution Width 15.9% (11.5-14.5) Platelet Count 320x10^3/uL (140-400) Neutrophils (%) (Auto) 77% (31-73) Lymphocytes (%) (Auto) 18% (24-48) Monocytes (%) (Auto) 5% (0-9) Eosinophils (%) (Auto) 0% (0-3) Basophils (%) (Auto) 0% (0-3) Neutrophils # (Auto) 7.6x10^3uL (1.8-7.7) Lymphocytes # (Auto) 1.8x10^3/uL (1.0-4.8) Monocytes # (Auto) 0.5x10^3/uL (0.0-1.1) Eosinophils # (Auto) 0.0x10^3/uL (0.0-0.7) Basophils # (Auto) 0.0x10^3/uL (0.0-0.2) Sodium Level 144mmol/L (136-145) Potassium Level 3.9mmol/L (3.5-5.1) Chloride Level 109mmol/L (98-107) Carbon Dioxide Level 30mmol/L (21-32) Anion Gap 5 (6-14) Blood Urea Nitrogen 17mg/dL (7-20) Creatinine 0.7mg/dL (0.6-1.0) Estimated GFR (Cockcroft-Gault) 88.6 BUN/Creatinine Ratio 24 (6-20) Glucose Level 100mg/dL (70-99) Calcium Level 8.6mg/dL (8.5-10.1) Total Bilirubin 0.2mg/dL (0.2-1.0) Aspartate Amino Transf (AST/SGOT) 13U/L (15-37) Alanine Aminotransferase (ALT/SGPT) 21U/L (14-59) Alkaline Phosphatase 102U/L (46-116) Total Protein 6.2g/dL (6.4-8.2) Albumin 3.0g/dL (3.4-5.0) Albumin/Globulin Ratio 0.9 (1.0-1.7) Laboratory Tests Test 06/04/16 17:15 06/04/16 20:54 06/05/16 04:45 06/05/16 07:24 Glucose (Fingerstick) 181mg/dL (70-99) 183mg/dL (70-99) 88mg/dL (70-99) White Blood Count 9.9x10^3/uL (4.0-11.0) Red Blood Count 4.42x10^6/uL (3.50-5.40) Hemoglobin 10.8g/dL (12.0-15.5) Hematocrit 33.4% (36.0-47.0) Mean Corpuscular Volume 76fL (79-100) Mean Corpuscular Hemoglobin 25pg (25-35) Mean Corpuscular Hemoglobin Concent 32g/dL (31-37) Red Cell Distribution Width 15.9% (11.5-14.5) Platelet Count 320x10^3/uL (140-400) Neutrophils (%) (Auto) 77% (31-73) Lymphocytes (%) (Auto) 18% (24-48) Monocytes (%) (Auto) 5% (0-9) Eosinophils (%) (Auto) 0% (0-3) Basophils (%) (Auto) 0% (0-3) Neutrophils # (Auto) 7.6x10^3uL (1.8-7.7) Lymphocytes # (Auto) 1.8x10^3/uL (1.0-4.8) Monocytes # (Auto) 0.5x10^3/uL (0.0-1.1) Eosinophils # (Auto) 0.0x10^3/uL (0.0-0.7) Basophils # (Auto) 0.0x10^3/uL (0.0-0.2) Sodium Level 144mmol/L (136-145) Potassium Level 3.9mmol/L (3.5-5.1) Chloride Level 109mmol/L (98-107) Carbon Dioxide Level 30mmol/L (21-32) Anion Gap 5 (6-14) Blood Urea Nitrogen 17mg/dL (7-20) Creatinine 0.7mg/dL (0.6-1.0) Estimated GFR (Cockcroft-Gault) 88.6 BUN/Creatinine Ratio 24 (6-20) Glucose Level 100mg/dL (70-99) Calcium Level 8.6mg/dL (8.5-10.1) Total Bilirubin 0.2mg/dL (0.2-1.0) Aspartate Amino Transf (AST/SGOT) 13U/L (15-37) Alanine Aminotransferase (ALT/SGPT) 21U/L (14-59) Alkaline Phosphatase 102U/L (46-116) Total Protein 6.2g/dL (6.4-8.2) Albumin 3.0g/dL (3.4-5.0) Albumin/Globulin Ratio 0.9 (1.0-1.7) Medications Current Medications Promethazine HCl (Phenergan) 25 mg PRN Q6HRS PRN PO NAUSEA/VOMITING; Start at 21:15 Zonisamide (Zonegran) 100 mg HS PO ; Start 06/02/16 at 22:00; Stop 06/03/16 at 12:14; Status DC Albuterol Sulfate (Ventolin Neb Soln) 2.5 mg PRN Q4HRS PRN NEB SHORTNESS OF BREATH Last administered on 06/03/16 23:12; Start 06/02/16 at 21:15 Clopidogrel Bisulfate (Plavix) 75 mg DAILY PO Last administered on 06/04/16 11 :19; Start 06/03/16 at 09:00 Gabapentin (Neurontin) 300 mg TID PO Last administered on 06/05/16 08:53; Start 06/02/16 at 22:00 Levothyroxine Sodium (Synthroid) 100 mcg DAILY07 PO Last administered on 06:37; Start 06/03/16 at 09:00 Montelukast Sodium (Singulair) 10 mg HS PO Last administered on 06/04/16 21:14 ; Start 06/02/16 at 22:00 Lacosamide (Vimpat) 50 mg BID PO ; Start 06/02/16 at 22:00; Status Cancel Lubiprostone (Amitiza) 24 mcg BIDWMEALS PO ; Start 06/03/16 at 08:00; Stop 06/03 at 08:00; Status DC Non-Formulary Medication 1 tab Q6HRS PO ; Start 06/03/16 at 00:00; Stop at 00:00; Status DC Morphine Sulfate (Morphine Ir) 15 mg PRN Q8HRS PRN PO PAIN; Start 06/02/16 at 21:15 Ondansetron HCl (Zofran Odt) 4 mg PRN Q6HRS PRN PO NAUSEA; Start 06/02/16 at 22 :00; Status Cancel Lubiprostone (Amitiza) 24 mcg BID PO Last administered on 06/05/16 08:53; Start 06/02/16 at 23:00 Ondansetron HCl (Zofran) 4 mg PRN Q6HRS PRN IV NAUSEA/VOMITING Last administered on 06/02/16 22:30; Start 06/02/16 at 22:15; Stop 06/03/16 at 06:21 ; Status DC Non-Formulary Medication 1 ea BID PO Last administered on 06/05/16 09:00; Start 06/02/16 at 23:00 Morphine Sulfate 4 mg PRN Q4HRS PRN IV SEVERE PAIN Last administered on 06:37; Start 06/03/16 at 02:30 Ondansetron HCl (Zofran) 4 mg PRN Q6HRS PRN IV NAUSEA/VOMITING Last administered on 06/05/16 08:52; Start 06/03/16 at 06:21 Zonisamide (Zonegran) 300 mg QHS PO ; Start 06/03/16 at 21:00 Gadobutrol (Gadavist) 8 mmol 1X ONCE IV Last administered on 06/03/16 14:52; Start 06/03/16 at 14:30; Stop 06/03/16 at 14:31; Status DC Baclofen (Lioresal) 10 mg PRN Q6HRS PRN PO MUSCLE SPASMS Last administered on 23:21; Start 06/03/16 at 17:30 Methylprednisolone (Medrol) 8 mg BID PO Last administered on 06/03/16 18:38; Start 06/03/16 at 09:00; Stop 06/03/16 at 21:01; Status DC Methylprednisolone (Medrol) 4 mg BIDPCLD PO Last administered on 06/03/16 18: 37; Start 06/03/16 at 12:30; Stop 06/03/16 at 17:39; Status DC Methylprednisolone (Medrol) 4 mg TIDPC PO Last administered on 06/04/16 11:21 ; Start 06/04/16 at 08:30; Stop 06/04/16 at 17:31; Status DC Methylprednisolone (Medrol) 8 mg QHS PO Last administered on 06/04/16 11:22; Start 06/04/16 at 21:00; Stop 06/04/16 at 21:01; Status DC Methylprednisolone (Medrol) 4 mg QIDAFTMEAL PO Last administered on 06/05/16 08 :52; Start 06/05/16 at 09:00; Stop 06/05/16 at 21:01 Methylprednisolone (Medrol) 4 mg TID PO ; Start 06/06/16 at 09:00; Stop 06/06/16 at 21:01 Methylprednisolone (Medrol) 4 mg BID PO ; Start 06/07/16 at 09:00; Stop 06/07/16 at 21:01 Methylprednisolone (Medrol) 4 mg DAILY PO ; Start 06/08/16 at 09:00; Stop at 09:01 Pantoprazole Sodium (Protonix) 40 mg DAILYAC PO Last administered on 06/03/16 18:35; Start 06/03/16 at 18:00; Stop 06/04/16 at 06:23; Status DC Pantoprazole Sodium (Protonix) 40 mg STK-MED ONCE PO ; Start 06/04/16 at 06:02; Stop 06/04/16 at 06:03; Status DC Pantoprazole Sodium (Protonix) 40 mg DAILYAC PO Last administered on 06/05/16 06:37; Start 06/04/16 at 07:30 Gabapentin (Neurontin) 300 mg STK-MED ONCE PO ; Start 06/05/16 at 08:00; Stop 06/05/16 at 08:01; Status DC Active Scripts Active Reported Zofran (Ondansetron Hcl) 4 Mg Tablet 1 Tab PO Q6HRS Vimpat (Lacosamide) 10 Mg/1 Ml Solution 5 Ml PO BID Montelukast Sodium Tablet (Montelukast Sodium) 10 Mg Tablet 10 Mg PO HS Amitiza (Lubiprostone) 24 Mcg Capsule 1 Cap PO BID Levothyroxine Sodium 100 Mcg Tablet 1 Tab PO DAILY Neurontin (Gabapentin) 300 Mg Capsule 300 Mg PO TID Plavix (Clopidogrel Bisulfate) 75 Mg Tablet 1 Tab PO DAILY Vitals/I & O Vital Sign - Last 24 Hours 06/04/16 06/04/16 06/04/16 06/04/16 15:15 19:05 20:00 23:05 Temp 98.1 97.9 97.6 98.1 97.9 97.6 Pulse 105 103 86 Resp 19 18 18 B/P 120/77 105/60 106/64 Pulse Ox 94 96 94 O2 Delivery Room Air Room Air Room Air Room Air 06/05/16 06/05/16 06/05/16 06/05/16 03:05 07:05 08:00 10:30 Temp 97.5 98.1 97.6 97.5 98.1 97.6 Pulse 78 72 87 Resp 18 18 18 B/P 97/60 94/49 114/71 Pulse Ox 94 97 95 O2 Delivery Room Air Room Air Room Air Room Air Intake and Output 06/04/16 06/04/16 06/05/16 14:59 22:59 06:59 Intake Total 1400 ml Output Total 800 ml 800 ml Balance 600 ml -800 ml MONTY CASTILLO MD Jun 05, 2016 12:02
--- NOTE | 2016-06-05 12:44 | PDOC ---
SUBJECTIVE Subjective Denies acute changes overnight. Still reports primarily sensory deficits. No acute complaints otherwise. OBJECTIVE Objective MRI cervical spine with prominent stenosis C3-4 and C4-5 just cephalad to prior surgery. Appear largely due to anterior pathology on axial films. MRI thoracic and lumbar spine without significant stenoses. Vital Signs Vital Signs Date Time Temp Pulse Resp B/P Pulse Ox O2 Delivery O2 Flow Rate FiO2 06/05/16 10:30 97.6 87 18 114/71 95 Room Air 97.6 06/05/16 08:00 Room Air 06/05/16 07:05 98.1 72 18 94/49 97 Room Air 98.1 06/05/16 03:05 97.5 78 18 97/60 94 Room Air 97.5 06/04/16 23:05 97.6 86 18 106/64 94 Room Air 97.6 06/04/16 20:00 Room Air 06/04/16 19:05 97.9 103 18 105/60 96 Room Air 97.9 06/04/16 15:15 98.1 105 19 120/77 94 Room Air 98.1 I & O Intake and Output 06/05/16 07:00 Intake Total 1400 ml Output Total 1600 ml Balance -200 ml Intake Oral 1400 ml Output Urine Total 1600 ml PHYSICAL EXAM Physical Exam AAOx4, left lower extremity weaker than right (reports chronic), reports prominent decreased LT sensation four extremities, hyperreflexia ASSESSMENT/PLAN Assessment/Plan 50F with cervical stenosis, decreased sensation, and ambulatory difficulty -may be multifactorial given other prior diagnoses, but cervical stenosis may very well significantly contribute -surgery again discussed (ACDF 3-4-5), she elects to proceed after noted potential risks, benefits, and expectations -last dose of plavix yesterday - plan for surgery next week when sufficient time off plavix and otherwise medically clear Problems: COMMENT Lab Laboratory Tests Test 06/04/16 17:15 06/04/16 20:54 06/05/16 04:45 06/05/16 07:24 Glucose (Fingerstick) 181mg/dL (70-99) 183mg/dL (70-99) 88mg/dL (70-99) White Blood Count 9.9x10^3/uL (4.0-11.0) Red Blood Count 4.42x10^6/uL (3.50-5.40) Hemoglobin 10.8g/dL (12.0-15.5) Hematocrit 33.4% (36.0-47.0) Mean Corpuscular Volume 76fL (79-100) Mean Corpuscular Hemoglobin 25pg (25-35) Mean Corpuscular Hemoglobin Concent 32g/dL (31-37) Red Cell Distribution Width 15.9% (11.5-14.5) Platelet Count 320x10^3/uL (140-400) Neutrophils (%) (Auto) 77% (31-73) Lymphocytes (%) (Auto) 18% (24-48) Monocytes (%) (Auto) 5% (0-9) Eosinophils (%) (Auto) 0% (0-3) Basophils (%) (Auto) 0% (0-3) Neutrophils # (Auto) 7.6x10^3uL (1.8-7.7) Lymphocytes # (Auto) 1.8x10^3/uL (1.0-4.8) Monocytes # (Auto) 0.5x10^3/uL (0.0-1.1) Eosinophils # (Auto) 0.0x10^3/uL (0.0-0.7) Basophils # (Auto) 0.0x10^3/uL (0.0-0.2) Sodium Level 144mmol/L (136-145) Potassium Level 3.9mmol/L (3.5-5.1) Chloride Level 109mmol/L (98-107) Carbon Dioxide Level 30mmol/L (21-32) Anion Gap 5 (6-14) Blood Urea Nitrogen 17mg/dL (7-20) Creatinine 0.7mg/dL (0.6-1.0) Estimated GFR (Cockcroft-Gault) 88.6 BUN/Creatinine Ratio 24 (6-20) Glucose Level 100mg/dL (70-99) Calcium Level 8.6mg/dL (8.5-10.1) Total Bilirubin 0.2mg/dL (0.2-1.0) Aspartate Amino Transf (AST/SGOT) 13U/L (15-37) Alanine Aminotransferase (ALT/SGPT) 21U/L (14-59) Alkaline Phosphatase 102U/L (46-116) Total Protein 6.2g/dL (6.4-8.2) Albumin 3.0g/dL (3.4-5.0) Albumin/Globulin Ratio 0.9 (1.0-1.7) Test 06/05/16 12:23 Glucose (Fingerstick) 85mg/dL (70-99) PADMINI PENA MD Jun 05, 2016 12:44
[2016-06-05] MEDS ORDERED: methylPREDNISolone 4 MG TABLET. PO ONE (13:30)
[2016-06-05 14:55] VITALS: BP 102/61
[2016-06-05 19:10] VITALS: BP 108/52
[2016-06-05] MEDS ORDERED: POLYETHYLENE GLYCOL 3350 17 GM PACKET. PO ONE (19:30)
[2016-06-05] MEDS: ZONISAMIDE 100 MG CAPSULE. PO SCH (21:54)
[2016-06-05] MEDS: MONTELUKAST SODIUM 10 MG TABLET. PO SCH (21:55)
[2016-06-05] MEDS: BACLOFEN 10 MG TABLET. PO PRN (22:04)
--- NOTE | 2016-06-05 22:29 | PN ---
DATE: 06/05/2016 SUBJECTIVE: The patient is resting, slightly propped up in bed, no apparent distress. She had low back pain, is much better with lumbar corset and she was seen by the neurosurgical team and apparently the plan is for her to have surgery after did Plavix stopped. She is also on tapering course of steroids and she did complain also of constipation, would like to have some MiraLax. PHYSICAL EXAMINATION: GENERAL: When I examined her, she looked well and was clearly in no apparent respiratory distress. She was pale, no jaundice, cyanosis, lymphadenopathy or thyromegaly. No jugular venous distension. No limb edema. VITAL SIGNS: Her heart rate was 87, blood pressure 114/71, temperature was 97.6, respiratory rate was 18 and oxygen saturation was 95%. HEAD, EYES, EARS, NOSE AND THROAT: Showed normocephalic, atraumatic. NECK: Supple. HEART: Showed normal first and second heart sounds with no gallop, rub or murmur. CHEST: Clear to auscultation. No crepitation or rhonchi. ABDOMEN: Distended, soft, nontender. No guarding or rigidity. No organomegaly. Hernial orifices intact. Bowel sounds normal. NEUROLOGIC: She is sleepy, but arousable. All cranial nerves are intact. She moves extremities without difficulty. Her intake is 1880, output was 1500. LABORATORY DATA: Her lab work this morning showed a white cell count 9900, hemoglobin 11, hematocrit 33, MCV 76, and platelet count . Serum sodium 144, potassium 3.9, chloride 109, bicarbonate 30, anion gap of 5, BUN 17, creatinine 0.7, estimated GFR was 88 mL per minute. Her glucose was 100, calcium was 8.6. Total bilirubin, AST, ALT, alkaline phosphatase were normal. Total protein was 6.2, albumin 3. ASSESSMENT: 1. 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 2. Chronic neck pain and lower back pain. 3. Seizure disorder. 4. Bilateral neuropathy. 5. Morbid obesity, status post gastric bypass surgery. PLAN: To continue with current medication. Her Plavix was discontinued. GLADYS PHILLIP MD DR: JANIS/lexis JOB#: [id number] / [id number]
[2016-06-05 23:10] VITALS: BP 97/51
[2016-06-06 03:10] VITALS: BP 96/58
[2016-06-06] MEDS: LEVOTHYROXINE 100 MCG TABLET PO SCH (06:31)
[2016-06-06 07:00] VITALS: BP 103/55
[2016-06-06] MEDS: POLYETHYLENE GLYCOL 3350 17 GM PACKET. PO SCH (08:30)
[2016-06-06] MEDS: PANTOPRAZOLE 40 MG TABLET.DR. PO SCH (08:31)
[2016-06-06] MEDS: GABAPENTIN 300 MG CAPSULE. PO SCH ×3 (08:31→21:03)
[2016-06-06] MEDS ORDERED: methylPREDNISolone 4 MG TABLET. PO SCH (09:00)
[2016-06-06] MEDS ORDERED: methylPREDNISolone 4 MG TABLET. PO ONE (09:00)
[2016-06-06] MEDS: LUBIPROSTONE 8 MCG CAPSULE PO SCH ×2 (10:12→21:03)
[2016-06-06] MEDS: VIMPAT PO SCH ×2 (10:12→21:04)
[2016-06-06 10:58] VITALS: BP 118/64
--- NOTE | 2016-06-06 13:05 | PDOC ---
SUBJECTIVE Subjective Denies acute changes. Ambulating with PT with walker. Still with prominent sensory deficits. OBJECTIVE Vital Signs Vital Signs Date Time Temp Pulse Resp B/P Pulse Ox O2 Delivery O2 Flow Rate FiO2 06/06/16 10:58 98.1 83 18 118/64 97 Room Air 98.1 06/06/16 08:00 Room Air 06/06/16 07:00 97.6 57 18 103/55 97 Room Air 97.6 06/06/16 03:10 98.0 64 16 96/58 96 Room Air 98.0 06/05/16 23:10 98.4 80 16 97/51 96 Room Air 98.4 06/05/16 22:36 Room Air 06/05/16 20:00 Room Air 06/05/16 19:10 97.7 79 14 108/52 95 Room Air 97.7 06/05/16 14:55 98.1 78 18 102/61 95 Room Air 98.1 I & O Intake and Output 06/06/16 07:00 Intake Total 1500 ml Output Total 750 ml Balance 750 ml Intake Oral 1500 ml Output Urine Total 750 ml # Voids 4 PHYSICAL EXAM Physical Exam AAOx4, NAD, LOVELL stable, decreased sensation x4 ext to LT ASSESSMENT/PLAN Assessment/Plan 50F with cervical stenosis -surgical decompression next week when sufficiently off plavix and otherwise medically clear Problems: COMMENT Lab Laboratory Tests Test 06/05/16 16:56 06/05/16 20:47 06/06/16 08:16 06/06/16 11:13 Glucose (Fingerstick) 119mg/dL (70-99) 98mg/dL (70-99) 82mg/dL (70-99) 152mg/dL (70-99) PADMINI PENA MD Jun 06, 2016 13:04
[2016-06-06 14:55] VITALS: BP 116/56
[2016-06-06] MEDS: ONDANSETRON PF 4 MG/2 ML VIAL. IV PRN (18:20)
[2016-06-06 19:30] VITALS: BP 117/78
[2016-06-06] MEDS: ALBUTEROL SULFATE 2.5 MG/3 ML NEBU. NEB PRN (20:44)
[2016-06-06] MEDS: MONTELUKAST SODIUM 10 MG TABLET. PO SCH (21:02)
[2016-06-06] MEDS: ZONISAMIDE 100 MG CAPSULE. PO SCH (21:03)
[2016-06-06] MEDS: MORPHINE SULFATE 4 MG/ML DISP.SYRIN. IV PRN (21:04)
[2016-06-06 22:45] VITALS: BP 125/79
[2016-06-06] MEDS: BACLOFEN 10 MG TABLET. PO PRN (23:52)
[2016-06-07 03:05] VITALS: BP 90/50
[2016-06-07 07:00] VITALS: BP 93/61
[2016-06-07] MEDS: PANTOPRAZOLE 40 MG TABLET.DR. PO SCH (07:40)
[2016-06-07] MEDS: LEVOTHYROXINE 100 MCG TABLET PO SCH (07:40)
[2016-06-07] MEDS: VIMPAT PO SCH ×2 (07:40→20:52)
--- NOTE | 2016-06-07 07:40 | PN ---
DATE: 06/06/2016 SUBJECTIVE: The patient is sitting propped up in bed, resting comfortably, said the brace is helping her back pain. Her MRI of the cervical spine showed prominent stenosis at C3-C4, C4-C5 ____ prior surgery; however, MRIs of the thoracic and lumbar spine were without significant stenosis. She apparently is scheduled for surgery sometime tomorrow or Tuesday after the Plavix effect will disappear from her circulation. PHYSICAL EXAMINATION: GENERAL: When I examined her this morning, she looked well and was clearly in no apparent respiratory distress, pale, but no jaundice, cyanosis or thyromegaly. No jugular venous distention. No limb edema. VITAL SIGNS: Her heart rate was 57, blood pressure was 103/55, temperature was 97.6, respiratory rate was 18 and oxygen saturation was 97%. The rest of clinical examination is stable and has not really changed. Her intake over the last 24 hours was 1500, output was 750. LABORATORY DATA: Her blood sugar seems to be well controlled. Her BUN as of yesterday was 17 and creatinine 0.7 and her hemoglobin was 11, hematocrit 33 with normal white cell count and platelet. PLAN: To proceed with the surgery for ACDF 3, 4, 5. GLADYS PHILLIP MD DR: JANIS/lexis JOB#: [id number] / [id number]
[2016-06-07] MEDS: LUBIPROSTONE 8 MCG CAPSULE PO SCH ×2 (07:41→20:52)
[2016-06-07] MEDS: methylPREDNISolone 4 MG TABLET. PO SCH ×2 (07:44→07:49)
[2016-06-07] MEDS: POLYETHYLENE GLYCOL 3350 17 GM PACKET. PO SCH (07:45)
[2016-06-07] MEDS: GABAPENTIN 300 MG CAPSULE. PO SCH ×3 (07:45→20:52)
[2016-06-07] MEDS: ALBUTEROL SULFATE 2.5 MG/3 ML NEBU. NEB PRN (08:19)
--- NOTE | 2016-06-07 09:59 | PDOC ---
PROGRESS NOTES Subjective Subjective She feels better. Objective Objective Vital Signs Date Time Temp Pulse Resp B/P Pulse Ox O2 Delivery O2 Flow Rate FiO2 06/07/16 08:19 97 Room Air 06/07/16 07:00 97.9 74 16 93/61 97.9 Intake and Output 06/07/16 07:00 Intake Total 1560 ml Output Total 800 ml Balance 760 ml Intake Oral 1560 ml Output Urine Total 800 ml # Voids 4 Physical Exam Physical Exam I saw her moving in her wheel chair in bathroom. Plan Plan of Care Waiting for decompression laminectomy which is planned for tomorrow. Comment Review of Relevant I have reviewed the following items ever (where applicable) has been applied. Labs Laboratory Tests Test 06/05/16 12:23 06/05/16 16:56 06/05/16 20:47 06/06/16 08:16 Glucose (Fingerstick) 85mg/dL (70-99) 119mg/dL (70-99) 98mg/dL (70-99) 82mg/dL (70-99) Test 06/06/16 11:13 06/06/16 16:34 06/06/16 20:50 06/07/16 07:18 Glucose (Fingerstick) 152mg/dL (70-99) 203mg/dL (70-99) 90mg/dL (70-99) 80mg/dL (70-99) Laboratory Tests Test 06/06/16 11:13 06/06/16 16:34 06/06/16 20:50 06/07/16 07:18 Glucose (Fingerstick) 152mg/dL (70-99) 203mg/dL (70-99) 90mg/dL (70-99) 80mg/dL (70-99) Medications Current Medications Promethazine HCl (Phenergan) 25 mg PRN Q6HRS PRN PO NAUSEA/VOMITING; Start at 21:15 Zonisamide (Zonegran) 100 mg HS PO ; Start 06/02/16 at 22:00; Stop 06/03/16 at 12:14; Status DC Albuterol Sulfate (Ventolin Neb Soln) 2.5 mg PRN Q4HRS PRN NEB SHORTNESS OF BREATH Last administered on 06/07/16t 08:19; Start 06/02/16 at 21:15 Clopidogrel Bisulfate (Plavix) 75 mg DAILY PO Last administered on 06/04/16 11 :19; Start 06/03/16 at 09:00; Stop 06/05/16 at 12:08; Status DC Gabapentin (Neurontin) 300 mg TID PO Last administered on 06/05/16 13:18; Start 06/02/16 at 22:00; Stop 06/05/16 at 13:33; Status DC Levothyroxine Sodium (Synthroid) 100 mcg DAILY07 PO Last administered on 07:40; Start 06/03/16 at 09:00 Montelukast Sodium (Singulair) 10 mg HS PO Last administered on 06/06/16 21:02 ; Start 06/02/16 at 22:00 Lacosamide (Vimpat) 50 mg BID PO ; Start 06/02/16 at 22:00; Status Cancel Lubiprostone (Amitiza) 24 mcg BIDWMEALS PO ; Start 06/03/16 at 08:00; Stop 06/03 at 08:00; Status DC Non-Formulary Medication 1 tab Q6HRS PO ; Start 06/03/16 at 00:00; Stop at 00:00; Status DC Morphine Sulfate (Morphine Ir) 15 mg PRN Q8HRS PRN PO PAIN; Start 06/02/16 at 21:15 Ondansetron HCl (Zofran Odt) 4 mg PRN Q6HRS PRN PO NAUSEA; Start 06/02/16 at 22 :00; Status Cancel Lubiprostone (Amitiza) 24 mcg BID PO Last administered on 06/07/16 07:41; Start 06/02/16 at 23:00 Ondansetron HCl (Zofran) 4 mg PRN Q6HRS PRN IV NAUSEA/VOMITING Last administered on 06/02/16 22:30; Start 06/02/16 at 22:15; Stop 06/03/16 at 06:21 ; Status DC Non-Formulary Medication 1 ea BID PO Last administered on 06/07/16 07:40; Start 06/02/16 at 23:00 Morphine Sulfate 4 mg PRN Q4HRS PRN IV SEVERE PAIN Last administered on 21:04; Start 06/03/16 at 02:30 Ondansetron HCl (Zofran) 4 mg PRN Q6HRS PRN IV NAUSEA/VOMITING Last administered on 06/06/16 18:20; Start 06/03/16 at 06:21 Zonisamide (Zonegran) 300 mg QHS PO Last administered on 06/06/16 21:03; Start 06/03/16 at 21:00 Gadobutrol (Gadavist) 8 mmol 1X ONCE IV Last administered on 06/03/16 14:52; Start 06/03/16 at 14:30; Stop 06/03/16 at 14:31; Status DC Baclofen (Lioresal) 10 mg PRN Q6HRS PRN PO MUSCLE SPASMS Last administered on 23:52; Start 06/03/16 at 17:30 Methylprednisolone (Medrol) 8 mg BID PO Last administered on 06/03/16 18:38; Start 06/03/16 at 09:00; Stop 06/03/16 at 21:01; Status DC Methylprednisolone (Medrol) 4 mg BIDPCLD PO Last administered on 06/03/16 18: 37; Start 06/03/16 at 12:30; Stop 06/03/16 at 17:39; Status DC Methylprednisolone (Medrol) 4 mg TIDPC PO Last administered on 06/04/16 11:21 ; Start 06/04/16 at 08:30; Stop 06/04/16 at 17:31; Status DC Methylprednisolone (Medrol) 8 mg QHS PO Last administered on 06/04/16 11:22; Start 06/04/16 at 21:00; Stop 06/04/16 at 21:01; Status DC Methylprednisolone (Medrol) 4 mg QIDAFTMEAL PO Last administered on 06/05/16 08 :52; Start 06/05/16 at 09:00; Stop 06/05/16 at 12:53; Status DC Methylprednisolone (Medrol) 4 mg TID PO ; Start 06/06/16 at 09:00; Stop 06/06/16 at 09:00; Status DC Methylprednisolone (Medrol) 4 mg BID PO Last administered on 06/07/16 07:49; Start 06/07/16 at 09:00; Stop 06/07/16 at 21:01 Methylprednisolone (Medrol) 4 mg DAILY PO ; Start 06/08/16 at 09:00; Stop at 09:01 Pantoprazole Sodium (Protonix) 40 mg DAILYAC PO Last administered on 06/03/16 18:35; Start 06/03/16 at 18:00; Stop 06/04/16 at 06:23; Status DC Pantoprazole Sodium (Protonix) 40 mg STK-MED ONCE PO ; Start 06/04/16 at 06:02; Stop 06/04/16 at 06:03; Status DC Pantoprazole Sodium (Protonix) 40 mg DAILYAC PO Last administered on 06/07/16 07:40; Start 06/04/16 at 07:30 Gabapentin (Neurontin) 300 mg STK-MED ONCE PO ; Start 06/05/16 at 08:00; Stop 06/05/16 at 08:01; Status DC Methylprednisolone (Medrol) 12 mg 1X ONCE PO Last administered on 06/05/16 13: 18; Start 06/05/16 at 13:30; Stop 06/05/16 at 13:31; Status DC Gabapentin (Neurontin) 300 mg STK-MED ONCE PO ; Start 06/05/16 at 13:12; Stop 06/05/16 at 13:13; Status DC Gabapentin (Neurontin) 300 mg TID PO Last administered on 06/07/16 07:45; Start 06/05/16 at 14:00 Polyethylene Glycol (miraLAX PACKET) 17 gm 1X ONCE PO Last administered on 06/05 19:30; Start 06/05/16 at 19:30; Stop 06/05/16 at 19:31; Status DC Polyethylene Glycol (miraLAX PACKET) 17 gm DAILY PO Last administered on 07:45; Start 06/06/16 at 09:00 Methylprednisolone (Medrol) 12 mg 1X ONCE PO Last administered on 06/06/16 08: 30; Start 06/06/16 at 09:00; Stop 06/06/16 at 09:01; Status DC Active Scripts Active Reported Zofran (Ondansetron Hcl) 4 Mg Tablet 1 Tab PO Q6HRS Vimpat (Lacosamide) 10 Mg/1 Ml Solution 5 Ml PO BID Montelukast Sodium Tablet (Montelukast Sodium) 10 Mg Tablet 10 Mg PO HS Amitiza (Lubiprostone) 24 Mcg Capsule 1 Cap PO BID Levothyroxine Sodium 100 Mcg Tablet 1 Tab PO DAILY Neurontin (Gabapentin) 300 Mg Capsule 300 Mg PO TID Plavix (Clopidogrel Bisulfate) 75 Mg Tablet 1 Tab PO DAILY Vitals/I & O Vital Sign - Last 24 Hours 06/06/16 06/06/16 06/06/16 06/06/16 10:58 14:55 15:28 19:30 Temp 98.1 98.2 97.9 98.1 98.2 97.9 Pulse 83 80 80 Resp 18 B/P 118/64 116/56 117/78 Pulse Ox 97 95 97 95 O2 Delivery Room Air Room Air Room Air Room Air 06/06/16 06/06/16 06/06/16 06/06/16 19:57 20:45 21:04 21:34 Resp 20 20 Pulse Ox 97 97 94 O2 Delivery Room Air Room Air Room Air Room Air 06/06/16 06/07/16 06/07/16 06/07/16 22:45 03:05 07:00 07:54 Temp 98.0 97.4 97.9 98.0 97.4 97.9 Pulse 73 73 74 Resp 16 B/P 125/79 90/50 93/61 Pulse Ox 94 93 94 O2 Delivery Room Air Room Air Room Air Room Air 06/07/16 08:19 Pulse Ox 97 O2 Delivery Room Air Intake and Output 06/06/16 06/06/16 06/07/16 15:00 23:00 07:00 Intake Total 1200 ml 360 ml Output Total 400 ml 400 ml Balance 800 ml -40 ml MONTY CASTILLO MD Jun 07, 2016 09:59
[2016-06-07] MEDS: ONDANSETRON PF 4 MG/2 ML VIAL. IV PRN ×2 (10:07→22:16)
--- NOTE | 2016-06-07 13:43 | PDOC ---
SUBJECTIVE Subjective Denies acute changes. OBJECTIVE Vital Signs Vital Signs Date Time Temp Pulse Resp B/P Pulse Ox O2 Delivery O2 Flow Rate FiO2 06/07/16 08:19 97 Room Air 06/07/16 07:54 Room Air 06/07/16 07:00 97.9 74 16 93/61 94 Room Air 97.9 06/07/16 03:05 97.4 73 18 90/50 93 Room Air 97.4 06/06/16 22:45 98.0 73 18 125/79 94 Room Air 98.0 06/06/16 21:34 20 94 Room Air 06/06/16 21:04 20 97 Room Air 06/06/16 20:45 97 Room Air 06/06/16 19:57 Room Air 06/06/16 19:30 97.9 80 18 117/78 95 Room Air 97.9 06/06/16 15:28 97 Room Air 06/06/16 14:55 98.2 80 18 116/56 95 Room Air 98.2 I & O Intake and Output 06/07/16 07:00 Intake Total 1560 ml Output Total 800 ml Balance 760 ml Intake Oral 1560 ml Output Urine Total 800 ml # Voids 4 PHYSICAL EXAM Physical Exam AAOx4, LOVELL, sensation unchanged ASSESSMENT/PLAN Assessment/Plan cervical stenosis ACDF on schedule 06/11/16 Problems: COMMENT Lab Laboratory Tests Test 06/06/16 16:34 06/06/16 20:50 06/07/16 07:18 06/07/16 11:37 Glucose (Fingerstick) 203mg/dL (70-99) 90mg/dL (70-99) 80mg/dL (70-99) 107mg/dL (70-99) PADMINI PENA MD Jun 07, 2016 13:43
[2016-06-07 15:00] VITALS: BP 105/70
[2016-06-07] MEDS: ALPRAZOLAM 0.25 MG TABLET. PO PRN (18:22)
[2016-06-07 19:58] VITALS: BP 103/56
[2016-06-07] MEDS: ZONISAMIDE 100 MG CAPSULE. PO SCH (20:52)
[2016-06-07] MEDS: MONTELUKAST SODIUM 10 MG TABLET. PO SCH (20:52)
[2016-06-07] MEDS: BACLOFEN 10 MG TABLET. PO PRN (20:59)
[2016-06-07] MEDS: MORPHINE SULFATE 4 MG/ML DISP.SYRIN. IV PRN (22:47)
[2016-06-07 23:15] VITALS: BP 101/61
[2016-06-08] VITALS (7 sets, daily range): BP systolic 92–119; BP diastolic 51–77
[2016-06-08] MEDS: ALBUTEROL SULFATE 2.5 MG/3 ML NEBU. NEB PRN (02:34)
[2016-06-08] MEDS: ALPRAZOLAM 0.25 MG TABLET. PO PRN ×2 (04:33→16:38)
[2016-06-08 05:10] LABS: BASO % 0 % (0-3); EOS % 1 % (0-3); HEMATOCRIT 34.5 % (36.0-47.0); HEMOGLOBIN 10.7 g/dL (12.0-15.5); LYMPH # 2.9 x10^3/uL (1.0-4.8); LYMPH % 29 % (24-48); MEAN CORPUSCULAR HEMOGLOBIN 24 pg (25-35); MEAN CORPUSCULAR HGB CONC 31 g/dL (31-37); MEAN CORPUSCULAR VOLUME 77 fL (79-100); MONO % 7 % (0-9); NEUT % 64 % (31-73); PLATELET COUNT 301 x10^3/uL (140-400); RED BLOOD COUNT 4.46 x10^6/uL (3.50-5.40); RED CELL DISTRIBUTION WIDTH 15.7 % (11.5-14.5); WHITE BLOOD COUNT 10.1 x10^3/uL (4.0-11.0)
[2016-06-08 05:51] LABS: ALBUMIN/GLOBULIN RATIO 0.9 (1.0-1.7); CALCIUM 8.5 mg/dL (8.5-10.1); CREATININE 0.8 mg/dL (0.6-1.0); GFR 75.9; POTASSIUM 3.6 mmol/L (3.5-5.1); TOTAL BILIRUBIN 0.2 mg/dL (0.2-1.0); TOTAL PROTEIN 6.2 g/dL (6.4-8.2)
[2016-06-08] MEDS: LEVOTHYROXINE 100 MCG TABLET PO SCH (06:08)
[2016-06-08] MEDS: PANTOPRAZOLE 40 MG TABLET.DR. PO SCH (08:57)
[2016-06-08] MEDS: LUBIPROSTONE 8 MCG CAPSULE PO SCH ×2 (08:58→21:13)
[2016-06-08] MEDS: POLYETHYLENE GLYCOL 3350 17 GM PACKET. PO SCH (08:58)
[2016-06-08] MEDS: GABAPENTIN 300 MG CAPSULE. PO SCH ×3 (08:58→21:13)
[2016-06-08] MEDS: VIMPAT PO SCH ×2 (08:59→21:14)
[2016-06-08] MEDS ORDERED: methylPREDNISolone 4 MG TABLET. PO SCH (09:00)
[2016-06-08] MEDS: ONDANSETRON PF 4 MG/2 ML VIAL. IV PRN (10:29)
--- NOTE | 2016-06-08 11:04 | PN ---
DATE: 06/07/2016 SUBJECTIVE: The patient is sitting in her recliner comfortably, in no apparent distress. She is able to transfer from bed to wheelchair, from wheelchair to toilet. She is scheduled for surgery on Tuesday for her C3-C4, C4-C5 cervical spine stenosis. PHYSICAL EXAMINATION: GENERAL: When I examined her this morning, she looked well and was clearly in no apparent respiratory distress, pale, but no jaundice, cyanosis or thyromegaly. No jugular venous distention. No limb edema. VITAL SIGNS: Her heart rate was 74, blood pressure was 93/61, temperature was 97.9, respiratory rate was 16 and oxygen saturation was 94%. The rest of clinical examination is stable and has not really changed. Her intake over the last 24 hours was 1550, output was 800. LABORATORY DATA: No lab work was done this morning. ASSESSMENT: 1. Cervical spinal stenosis at C4-C5 level with the radiological evidence of cervical spinal stenosis, more so at C3-C4, spastic paraparesis, frequent falls. 2. Chronic neck pain and lower back pain from cervical spine, cervical paraspinal posterior shoulder, lumbar paraspinal muscle strain and degenerative disk disease. PLAN: To continue with tapering course of steroids, continue with all other medication. Her Plavix was discontinued in preparation for surgery and hopefully she will have surgery tomorrow or on Tuesday. I will repeat her lab works tomorrow. Meanwhile, we will continue with physical and occupational therapy. GLADYS PHILLIP MD DR: JANIS/lexis JOB#: [id number] / [id number]
--- NOTE | 2016-06-08 14:00 | PDOC ---
SUBJECTIVE Subjective Denies acute changes. Still with decreased sensation. No motor changes. OBJECTIVE Vital Signs Vital Signs Date Time Temp Pulse Resp B/P Pulse Ox O2 Delivery O2 Flow Rate FiO2 06/08/16 11:00 97.8 94 16 116/72 96 Room Air 97.8 06/08/16 09:19 Room Air 06/08/16 08:13 Room Air 06/08/16 07:00 97.9 69 16 96/55 96 Room Air 97.9 06/08/16 03:15 97.7 95 18 92/51 92 Room Air 97.7 06/08/16 02:34 96 Room Air 06/07/16 23:17 17 97 Room Air 06/07/16 23:15 97.5 89 18 101/61 97 Room Air 97.5 06/07/16 22:47 97 Room Air 06/07/16 20:00 Room Air 06/07/16 19:58 97.9 79 18 103/56 97 Room Air 97.9 06/07/16 15:00 97.9 90 16 105/70 97 Room Air 97.9 I & O Intake and Output 06/08/16 07:00 Intake Total 1400 ml Output Total 400 ml Balance 1000 ml Intake Oral 1400 ml Output Urine Total 400 ml # Bowel Movements 1 PHYSICAL EXAM Physical Exam AAOx4, NAD, LOVELL stable, sensation unchanged ASSESSMENT/PLAN Assessment/Plan 50F with cervical stenosis -ACDF scheduled 06/11/16 0830 -monitor for changes Problems: COMMENT Lab Laboratory Tests Test 06/07/16 17:20 06/07/16 20:57 06/08/16 04:17 06/08/16 07:41 Glucose (Fingerstick) 99mg/dL (70-99) 156mg/dL (70-99) 73mg/dL (70-99) White Blood Count 10.1x10^3/uL (4.0-11.0) Red Blood Count 4.46x10^6/uL (3.50-5.40) Hemoglobin 10.7g/dL (12.0-15.5) Hematocrit 34.5% (36.0-47.0) Mean Corpuscular Volume 77fL (79-100) Mean Corpuscular Hemoglobin 24pg (25-35) Mean Corpuscular Hemoglobin Concent 31g/dL (31-37) Red Cell Distribution Width 15.7% (11.5-14.5) Platelet Count 301x10^3/uL (140-400) Neutrophils (%) (Auto) 64% (31-73) Lymphocytes (%) (Auto) 29% (24-48) Monocytes (%) (Auto) 7% (0-9) Eosinophils (%) (Auto) 1% (0-3) Basophils (%) (Auto) 0% (0-3) Neutrophils # (Auto) 6.4x10^3uL (1.8-7.7) Lymphocytes # (Auto) 2.9x10^3/uL (1.0-4.8) Monocytes # (Auto) 0.7x10^3/uL (0.0-1.1) Eosinophils # (Auto) 0.1x10^3/uL (0.0-0.7) Basophils # (Auto) 0.0x10^3/uL (0.0-0.2) Sodium Level 146mmol/L (136-145) Potassium Level 3.6mmol/L (3.5-5.1) Chloride Level 110mmol/L (98-107) Carbon Dioxide Level 28mmol/L (21-32) Anion Gap 8 (6-14) Blood Urea Nitrogen 18mg/dL (7-20) Creatinine 0.8mg/dL (0.6-1.0) Estimated GFR (Cockcroft-Gault) 75.9 BUN/Creatinine Ratio 23 (6-20) Glucose Level 96mg/dL (70-99) Calcium Level 8.5mg/dL (8.5-10.1) Total Bilirubin 0.2mg/dL (0.2-1.0) Aspartate Amino Transf (AST/SGOT) 8U/L (15-37) Alanine Aminotransferase (ALT/SGPT) 21U/L (14-59) Alkaline Phosphatase 101U/L (46-116) Total Protein 6.2g/dL (6.4-8.2) Albumin 3.0g/dL (3.4-5.0) Albumin/Globulin Ratio 0.9 (1.0-1.7) Test 06/08/16 11:33 Glucose (Fingerstick) 95mg/dL (70-99) PADMINI PENA MD Jun 08, 2016 14:00
--- NOTE | 2016-06-08 18:13 | PDOC ---
PROGRESS NOTES Subjective Subjective She feels better. Objective Objective Vital Signs Date Time Temp Pulse Resp B/P Pulse Ox O2 Delivery O2 Flow Rate FiO2 06/08/16 15:00 97.9 78 16 106/64 97 Room Air 97.9 Intake and Output 06/08/16 07:00 Intake Total 1400 ml Output Total 400 ml Balance 1000 ml Intake Oral 1400 ml Output Urine Total 400 ml # Bowel Movements 1 Physical Exam Physical Exam She did walk for 250' with roller walker with physical therapy today. Plan Plan of Care To continue present rehab efforts as tolerated. Comment Review of Relevant I have reviewed the following items ever (where applicable) has been applied. Labs Laboratory Tests Test 06/06/16 20:50 06/07/16 07:18 06/07/16 11:37 06/07/16 17:20 Glucose (Fingerstick) 90mg/dL (70-99) 80mg/dL (70-99) 107mg/dL (70-99) 99mg/dL (70-99) Test 06/07/16 20:57 06/08/16 04:17 06/08/16 07:41 06/08/16 11:33 Glucose (Fingerstick) 156mg/dL (70-99) 73mg/dL (70-99) 95mg/dL (70-99) White Blood Count 10.1x10^3/uL (4.0-11.0) Red Blood Count 4.46x10^6/uL (3.50-5.40) Hemoglobin 10.7g/dL (12.0-15.5) Hematocrit 34.5% (36.0-47.0) Mean Corpuscular Volume 77fL (79-100) Mean Corpuscular Hemoglobin 24pg (25-35) Mean Corpuscular Hemoglobin Concent 31g/dL (31-37) Red Cell Distribution Width 15.7% (11.5-14.5) Platelet Count 301x10^3/uL (140-400) Neutrophils (%) (Auto) 64% (31-73) Lymphocytes (%) (Auto) 29% (24-48) Monocytes (%) (Auto) 7% (0-9) Eosinophils (%) (Auto) 1% (0-3) Basophils (%) (Auto) 0% (0-3) Neutrophils # (Auto) 6.4x10^3uL (1.8-7.7) Lymphocytes # (Auto) 2.9x10^3/uL (1.0-4.8) Monocytes # (Auto) 0.7x10^3/uL (0.0-1.1) Eosinophils # (Auto) 0.1x10^3/uL (0.0-0.7) Basophils # (Auto) 0.0x10^3/uL (0.0-0.2) Sodium Level 146mmol/L (136-145) Potassium Level 3.6mmol/L (3.5-5.1) Chloride Level 110mmol/L (98-107) Carbon Dioxide Level 28mmol/L (21-32) Anion Gap 8 (6-14) Blood Urea Nitrogen 18mg/dL (7-20) Creatinine 0.8mg/dL (0.6-1.0) Estimated GFR (Cockcroft-Gault) 75.9 BUN/Creatinine Ratio 23 (6-20) Glucose Level 96mg/dL (70-99) Calcium Level 8.5mg/dL (8.5-10.1) Total Bilirubin 0.2mg/dL (0.2-1.0) Aspartate Amino Transf (AST/SGOT) 8U/L (15-37) Alanine Aminotransferase (ALT/SGPT) 21U/L (14-59) Alkaline Phosphatase 101U/L (46-116) Total Protein 6.2g/dL (6.4-8.2) Albumin 3.0g/dL (3.4-5.0) Albumin/Globulin Ratio 0.9 (1.0-1.7) Test 06/08/16 17:29 Glucose (Fingerstick) 78mg/dL (70-99) Laboratory Tests Test 06/07/16 20:57 06/08/16 04:17 06/08/16 07:41 06/08/16 11:33 Glucose (Fingerstick) 156mg/dL (70-99) 73mg/dL (70-99) 95mg/dL (70-99) White Blood Count 10.1x10^3/uL (4.0-11.0) Red Blood Count 4.46x10^6/uL (3.50-5.40) Hemoglobin 10.7g/dL (12.0-15.5) Hematocrit 34.5% (36.0-47.0) Mean Corpuscular Volume 77fL (79-100) Mean Corpuscular Hemoglobin 24pg (25-35) Mean Corpuscular Hemoglobin Concent 31g/dL (31-37) Red Cell Distribution Width 15.7% (11.5-14.5) Platelet Count 301x10^3/uL (140-400) Neutrophils (%) (Auto) 64% (31-73) Lymphocytes (%) (Auto) 29% (24-48) Monocytes (%) (Auto) 7% (0-9) Eosinophils (%) (Auto) 1% (0-3) Basophils (%) (Auto) 0% (0-3) Neutrophils # (Auto) 6.4x10^3uL (1.8-7.7) Lymphocytes # (Auto) 2.9x10^3/uL (1.0-4.8) Monocytes # (Auto) 0.7x10^3/uL (0.0-1.1) Eosinophils # (Auto) 0.1x10^3/uL (0.0-0.7) Basophils # (Auto) 0.0x10^3/uL (0.0-0.2) Sodium Level 146mmol/L (136-145) Potassium Level 3.6mmol/L (3.5-5.1) Chloride Level 110mmol/L (98-107) Carbon Dioxide Level 28mmol/L (21-32) Anion Gap 8 (6-14) Blood Urea Nitrogen 18mg/dL (7-20) Creatinine 0.8mg/dL (0.6-1.0) Estimated GFR (Cockcroft-Gault) 75.9 BUN/Creatinine Ratio 23 (6-20) Glucose Level 96mg/dL (70-99) Calcium Level 8.5mg/dL (8.5-10.1) Total Bilirubin 0.2mg/dL (0.2-1.0) Aspartate Amino Transf (AST/SGOT) 8U/L (15-37) Alanine Aminotransferase (ALT/SGPT) 21U/L (14-59) Alkaline Phosphatase 101U/L (46-116) Total Protein 6.2g/dL (6.4-8.2) Albumin 3.0g/dL (3.4-5.0) Albumin/Globulin Ratio 0.9 (1.0-1.7) Test 06/08/16 17:29 Glucose (Fingerstick) 78mg/dL (70-99) Medications Current Medications Promethazine HCl (Phenergan) 25 mg PRN Q6HRS PRN PO NAUSEA/VOMITING; Start at 21:15 Zonisamide (Zonegran) 100 mg HS PO ; Start 06/02/16 at 22:00; Stop 06/03/16 at 12:14; Status DC Albuterol Sulfate (Ventolin Neb Soln) 2.5 mg PRN Q4HRS PRN NEB SHORTNESS OF BREATH Last administered on 06/08/16 02:34; Start 06/02/16 at 21:15 Clopidogrel Bisulfate (Plavix) 75 mg DAILY PO Last administered on 06/04/16 11 :19; Start 06/03/16 at 09:00; Stop 06/05/16 at 12:08; Status DC Gabapentin (Neurontin) 300 mg TID PO Last administered on 06/05/16 13:18; Start 06/02/16 at 22:00; Stop 06/05/16 at 13:33; Status DC Levothyroxine Sodium (Synthroid) 100 mcg DAILY07 PO Last administered on 06:08; Start 06/03/16 at 09:00 Montelukast Sodium (Singulair) 10 mg HS PO Last administered on 06/07/16 20:52 ; Start 06/02/16 at 22:00 Lacosamide (Vimpat) 50 mg BID PO ; Start 06/02/16 at 22:00; Status Cancel Lubiprostone (Amitiza) 24 mcg BIDWMEALS PO ; Start 06/03/16 at 08:00; Stop 06/03 at 08:00; Status DC Non-Formulary Medication 1 tab Q6HRS PO ; Start 06/03/16 at 00:00; Stop at 00:00; Status DC Morphine Sulfate (Morphine Ir) 15 mg PRN Q8HRS PRN PO PAIN; Start 06/02/16 at 21:15 Ondansetron HCl (Zofran Odt) 4 mg PRN Q6HRS PRN PO NAUSEA; Start 06/02/16 at 22 :00; Status Cancel Lubiprostone (Amitiza) 24 mcg BID PO Last administered on 06/08/16 08:58; Start 06/02/16 at 23:00 Ondansetron HCl (Zofran) 4 mg PRN Q6HRS PRN IV NAUSEA/VOMITING Last administered on 06/02/16 22:30; Start 06/02/16 at 22:15; Stop 06/03/16 at 06:21 ; Status DC Non-Formulary Medication 1 ea BID PO Last administered on 06/08/16 08:59; Start 06/02/16 at 23:00 Morphine Sulfate 4 mg PRN Q4HRS PRN IV SEVERE PAIN Last administered on 22:47; Start 06/03/16 at 02:30 Ondansetron HCl (Zofran) 4 mg PRN Q6HRS PRN IV NAUSEA/VOMITING Last administered on 06/08/16 10:29; Start 06/03/16 at 06:21 Zonisamide (Zonegran) 300 mg QHS PO Last administered on 06/07/16 20:52; Start 06/03/16 at 21:00 Gadobutrol (Gadavist) 8 mmol 1X ONCE IV Last administered on 06/03/16 14:52; Start 06/03/16 at 14:30; Stop 06/03/16 at 14:31; Status DC Baclofen (Lioresal) 10 mg PRN Q6HRS PRN PO MUSCLE SPASMS Last administered on 20:59; Start 06/03/16 at 17:30 Methylprednisolone (Medrol) 8 mg BID PO Last administered on 06/03/16 18:38; Start 06/03/16 at 09:00; Stop 06/03/16 at 21:01; Status DC Methylprednisolone (Medrol) 4 mg BIDPCLD PO Last administered on 06/03/16 18: 37; Start 06/03/16 at 12:30; Stop 06/03/16 at 17:39; Status DC Methylprednisolone (Medrol) 4 mg TIDPC PO Last administered on 06/04/16 11:21 ; Start 06/04/16 at 08:30; Stop 06/04/16 at 17:31; Status DC Methylprednisolone (Medrol) 8 mg QHS PO Last administered on 06/04/16 11:22; Start 06/04/16 at 21:00; Stop 06/04/16 at 21:01; Status DC Methylprednisolone (Medrol) 4 mg QIDAFTMEAL PO Last administered on 06/05/16 08 :52; Start 06/05/16 at 09:00; Stop 06/05/16 at 12:53; Status DC Methylprednisolone (Medrol) 4 mg TID PO ; Start 06/06/16 at 09:00; Stop 06/06/16 at 09:00; Status DC Methylprednisolone (Medrol) 4 mg BID PO Last administered on 06/07/16 07:49; Start 06/07/16 at 09:00; Stop 06/07/16 at 21:01; Status DC Methylprednisolone (Medrol) 4 mg DAILY PO Last administered on 06/08/16 08:58; Start 06/08/16 at 09:00; Stop 06/08/16 at 09:01; Status DC Pantoprazole Sodium (Protonix) 40 mg DAILYAC PO Last administered on 06/03/16 18:35; Start 06/03/16 at 18:00; Stop 06/04/16 at 06:23; Status DC Pantoprazole Sodium (Protonix) 40 mg STK-MED ONCE PO ; Start 06/04/16 at 06:02; Stop 06/04/16 at 06:03; Status DC Pantoprazole Sodium (Protonix) 40 mg DAILYAC PO Last administered on 06/08/16 08:57; Start 06/04/16 at 07:30 Gabapentin (Neurontin) 300 mg STK-MED ONCE PO ; Start 06/05/16 at 08:00; Stop 06/05/16 at 08:01; Status DC Methylprednisolone (Medrol) 12 mg 1X ONCE PO Last administered on 06/05/16 13: 18; Start 06/05/16 at 13:30; Stop 06/05/16 at 13:31; Status DC Gabapentin (Neurontin) 300 mg STK-MED ONCE PO ; Start 06/05/16 at 13:12; Stop 06/05/16 at 13:13; Status DC Gabapentin (Neurontin) 300 mg TID PO Last administered on 06/08/16 15:20; Start 06/05/16 at 14:00 Polyethylene Glycol (miraLAX PACKET) 17 gm 1X ONCE PO Last administered on 06/05 19:30; Start 06/05/16 at 19:30; Stop 06/05/16 at 19:31; Status DC Polyethylene Glycol (miraLAX PACKET) 17 gm DAILY PO Last administered on 08:58; Start 06/06/16 at 09:00 Methylprednisolone (Medrol) 12 mg 1X ONCE PO Last administered on 06/06/16 08: 30; Start 06/06/16 at 09:00; Stop 06/06/16 at 09:01; Status DC Alprazolam (Xanax) 0.25 mg PRN Q8HRS PRN PO ANXIETY / AGITATION Last administered on 06/08/16 16:38; Start 06/07/16 at 16:45 Active Scripts Active Reported Zofran (Ondansetron Hcl) 4 Mg Tablet 1 Tab PO Q6HRS Vimpat (Lacosamide) 10 Mg/1 Ml Solution 5 Ml PO BID Montelukast Sodium Tablet (Montelukast Sodium) 10 Mg Tablet 10 Mg PO HS Amitiza (Lubiprostone) 24 Mcg Capsule 1 Cap PO BID Levothyroxine Sodium 100 Mcg Tablet 1 Tab PO DAILY Neurontin (Gabapentin) 300 Mg Capsule 300 Mg PO TID Plavix (Clopidogrel Bisulfate) 75 Mg Tablet 1 Tab PO DAILY Vitals/I & O Vital Sign - Last 24 Hours 06/07/16 06/07/16 06/07/16 06/07/16 19:58 20:00 22:47 23:15 Temp 97.9 97.5 97.9 97.5 Pulse 79 89 Resp 18 18 B/P 103/56 101/61 Pulse Ox 97 97 97 O2 Delivery Room Air Room Air Room Air Room Air 06/07/16 06/08/16 06/08/16 06/08/16 23:17 02:34 03:15 07:00 Temp 97.7 97.9 97.7 97.9 Pulse 95 69 Resp 17 18 16 B/P 92/51 96/55 Pulse Ox 97 96 92 96 O2 Delivery Room Air Room Air Room Air Room Air 06/08/16 06/08/16 06/08/16 06/08/16 08:13 09:19 11:00 15:00 Temp 97.8 97.9 97.8 97.9 Pulse 94 78 Resp 16 16 B/P 116/72 106/64 Pulse Ox 96 97 O2 Delivery Room Air Room Air Room Air Room Air Intake and Output 06/07/16 06/07/16 06/08/16 15:00 23:00 07:00 Intake Total 800 ml 600 ml Output Total 400 ml Balance 400 ml 600 ml MONTY CASTILLO MD Jun 08, 2016 18:13
[2016-06-08] MEDS: MORPHINE SULFATE 4 MG/ML DISP.SYRIN. IV PRN ×2 (19:29→23:12)
[2016-06-08] MEDS: BACLOFEN 10 MG TABLET. PO PRN (21:13)
[2016-06-08] MEDS: MONTELUKAST SODIUM 10 MG TABLET. PO SCH (21:13)
[2016-06-08] MEDS: ZONISAMIDE 100 MG CAPSULE. PO SCH (21:13)
[2016-06-09] MEDS: ALPRAZOLAM 0.25 MG TABLET. PO PRN ×2 (00:11→16:55)
[2016-06-09 03:10] VITALS: BP 110/63
--- NOTE | 2016-06-09 03:55 | PN ---
DATE: 06/08/2016 SUBJECTIVE: The patient is sitting comfortably in her wheelchair. Stated she had an episode of nausea, no vomiting, for which she was given Zofran and did well thereafter. Her surgery was unfortunately postponed to Tuesday. PHYSICAL EXAMINATION: GENERAL: When I examined her, she looked well and was clearly in no apparent respiratory distress. VITAL SIGNS: Her heart rate was 94, blood pressure 118/72, temperature was 97.8, respiratory rate was 16 and oxygen saturation was 96% on room air. The rest of examination is stable and has not really changed. Her intake over the last 24 hours was 1400, output was 800. LABORATORY DATA: Showed serum sodium 146, potassium 3.6, chloride 110, bicarbonate 28, anion gap of 8, BUN 18, creatinine 0.8, estimated GFR was 76 mL per minute. Her white cell count was 10,000, hemoglobin 11, hematocrit 34, MCV 77 and platelet count ____. ASSESSMENT: Cervical stenosis, spastic paraplegia, for which she is scheduled for surgery on Tuesday. Meanwhile, continue with pain management. Continue with Physical and Occupational Therapy. GLADYS PHILLIP MD DR: JANIS/lexis JOB#: [id number] / [id number]
[2016-06-09 07:00] VITALS: BP 84/46
[2016-06-09] MEDS: LEVOTHYROXINE 100 MCG TABLET PO SCH (07:00)
[2016-06-09] MEDS: POLYETHYLENE GLYCOL 3350 17 GM PACKET. PO SCH (08:08)
[2016-06-09] MEDS: LUBIPROSTONE 8 MCG CAPSULE PO SCH ×2 (08:08→21:00)
[2016-06-09] MEDS: PANTOPRAZOLE 40 MG TABLET.DR. PO SCH (08:08)
[2016-06-09] MEDS: GABAPENTIN 300 MG CAPSULE. PO SCH ×3 (08:09→21:00)
[2016-06-09] MEDS: VIMPAT PO SCH ×2 (08:10→20:59)
[2016-06-09 12:00] VITALS: BP 107/51
--- NOTE | 2016-06-09 12:59 | PDOC ---
PROGRESS NOTES Assessment Psychogenic nonepileptic seizures Cervical spondylosis with myelopathy, but complete anesthesia below the neck is not typical and therefore there most likely is some embellishment. Plan Dr. Bowens had signed off for neurology given physician-patient interaction problems. I would be glad to see the patient again as needed, but otherwise will also defer management to neurosurgery. Subjective The patient had an episode of convulsive activity last night. The patient would avoid striking her head with her supposedly flaccid limb. Symptoms aborted with mild sternal rubbing. Objective Vital Signs Date Time Temp Pulse Resp B/P Pulse Ox O2 Delivery O2 Flow Rate FiO2 06/09/16 12:00 98.3 72 16 107/51 94 Room Air 98.3 Intake and Output 06/09/16 07:00 Intake Total 1500 ml Balance 1500 ml Intake Oral 1500 ml PHYSICAL EXAM Alert. Oriented to time, place and person. PERRL. EOMI. CN: no focal findings. Muscle tone: normal. Muscle strength: 5/5 arms, 4/5 legs DTR: 1+ Plantar reflex: flexor Gait: not examined in bed. Sensory exam: Complete anesthesia below the neck. No cerebellar signs elicited. Review of Relevant I have reviewed the following items ever (where applicable) has been applied. Labs Laboratory Tests Test 06/07/16 17:20 06/07/16 20:57 06/08/16 04:17 06/08/16 07:41 Glucose (Fingerstick) 99mg/dL (70-99) 156mg/dL (70-99) 73mg/dL (70-99) White Blood Count 10.1x10^3/uL (4.0-11.0) Red Blood Count 4.46x10^6/uL (3.50-5.40) Hemoglobin 10.7g/dL (12.0-15.5) Hematocrit 34.5% (36.0-47.0) Mean Corpuscular Volume 77fL (79-100) Mean Corpuscular Hemoglobin 24pg (25-35) Mean Corpuscular Hemoglobin Concent 31g/dL (31-37) Red Cell Distribution Width 15.7% (11.5-14.5) Platelet Count 301x10^3/uL (140-400) Neutrophils (%) (Auto) 64% (31-73) Lymphocytes (%) (Auto) 29% (24-48) Monocytes (%) (Auto) 7% (0-9) Eosinophils (%) (Auto) 1% (0-3) Basophils (%) (Auto) 0% (0-3) Neutrophils # (Auto) 6.4x10^3uL (1.8-7.7) Lymphocytes # (Auto) 2.9x10^3/uL (1.0-4.8) Monocytes # (Auto) 0.7x10^3/uL (0.0-1.1) Eosinophils # (Auto) 0.1x10^3/uL (0.0-0.7) Basophils # (Auto) 0.0x10^3/uL (0.0-0.2) Sodium Level 146mmol/L (136-145) Potassium Level 3.6mmol/L (3.5-5.1) Chloride Level 110mmol/L (98-107) Carbon Dioxide Level 28mmol/L (21-32) Anion Gap 8 (6-14) Blood Urea Nitrogen 18mg/dL (7-20) Creatinine 0.8mg/dL (0.6-1.0) Estimated GFR (Cockcroft-Gault) 75.9 BUN/Creatinine Ratio 23 (6-20) Glucose Level 96mg/dL (70-99) Calcium Level 8.5mg/dL (8.5-10.1) Total Bilirubin 0.2mg/dL (0.2-1.0) Aspartate Amino Transf (AST/SGOT) 8U/L (15-37) Alanine Aminotransferase (ALT/SGPT) 21U/L (14-59) Alkaline Phosphatase 101U/L (46-116) Total Protein 6.2g/dL (6.4-8.2) Albumin 3.0g/dL (3.4-5.0) Albumin/Globulin Ratio 0.9 (1.0-1.7) Test 06/08/16 11:33 06/08/16 17:29 06/08/16 20:59 06/09/16 07:33 Glucose (Fingerstick) 95mg/dL (70-99) 78mg/dL (70-99) 121mg/dL (70-99) 88mg/dL (70-99) Test 06/09/16 11:58 Glucose (Fingerstick) 100mg/dL (70-99) Laboratory Tests Test 06/08/16 17:29 06/08/16 20:59 06/09/16 07:33 06/09/16 11:58 Glucose (Fingerstick) 78mg/dL (70-99) 121mg/dL (70-99) 88mg/dL (70-99) 100mg/dL (70-99) Medications Current Medications Promethazine HCl (Phenergan) 25 mg PRN Q6HRS PRN PO NAUSEA/VOMITING; Start at 21:15 Zonisamide (Zonegran) 100 mg HS PO ; Start 06/02/16 at 22:00; Stop 06/03/16 at 12:14; Status DC Albuterol Sulfate (Ventolin Neb Soln) 2.5 mg PRN Q4HRS PRN NEB SHORTNESS OF BREATH Last administered on 06/08/16 02:34; Start 06/02/16 at 21:15 Clopidogrel Bisulfate (Plavix) 75 mg DAILY PO Last administered on 06/04/16 11 :19; Start 06/03/16 at 09:00; Stop 06/05/16 at 12:08; Status DC Gabapentin (Neurontin) 300 mg TID PO Last administered on 06/05/16 13:18; Start 06/02/16 at 22:00; Stop 06/05/16 at 13:33; Status DC Levothyroxine Sodium (Synthroid) 100 mcg DAILY07 PO Last administered on 07:00; Start 06/03/16 at 09:00 Montelukast Sodium (Singulair) 10 mg HS PO Last administered on 06/08/16 21:13 ; Start 06/02/16 at 22:00 Lacosamide (Vimpat) 50 mg BID PO ; Start 06/02/16 at 22:00; Status Cancel Lubiprostone (Amitiza) 24 mcg BIDWMEALS PO ; Start 06/03/16 at 08:00; Stop 06/03 at 08:00; Status DC Non-Formulary Medication 1 tab Q6HRS PO ; Start 06/03/16 at 00:00; Stop at 00:00; Status DC Morphine Sulfate (Morphine Ir) 15 mg PRN Q8HRS PRN PO PAIN; Start 06/02/16 at 21:15 Ondansetron HCl (Zofran Odt) 4 mg PRN Q6HRS PRN PO NAUSEA; Start 06/02/16 at 22 :00; Status Cancel Lubiprostone (Amitiza) 24 mcg BID PO Last administered on 06/09/16 08:08; Start 06/02/16 at 23:00 Ondansetron HCl (Zofran) 4 mg PRN Q6HRS PRN IV NAUSEA/VOMITING Last administered on 06/02/16 22:30; Start 06/02/16 at 22:15; Stop 06/03/16 at 06:21 ; Status DC Non-Formulary Medication 1 ea BID PO Last administered on 06/09/16 08:10; Start 06/02/16 at 23:00 Morphine Sulfate 4 mg PRN Q4HRS PRN IV SEVERE PAIN Last administered on 23:12; Start 06/03/16 at 02:30 Ondansetron HCl (Zofran) 4 mg PRN Q6HRS PRN IV NAUSEA/VOMITING Last administered on 06/08/16 10:29; Start 06/03/16 at 06:21 Zonisamide (Zonegran) 300 mg QHS PO Last administered on 06/08/16 21:13; Start 06/03/16 at 21:00 Gadobutrol (Gadavist) 8 mmol 1X ONCE IV Last administered on 06/03/16 14:52; Start 06/03/16 at 14:30; Stop 06/03/16 at 14:31; Status DC Baclofen (Lioresal) 10 mg PRN Q6HRS PRN PO MUSCLE SPASMS Last administered on 21:13; Start 06/03/16 at 17:30 Methylprednisolone (Medrol) 8 mg BID PO Last administered on 06/03/16 18:38; Start 06/03/16 at 09:00; Stop 06/03/16 at 21:01; Status DC Methylprednisolone (Medrol) 4 mg BIDPCLD PO Last administered on 06/03/16 18: 37; Start 06/03/16 at 12:30; Stop 06/03/16 at 17:39; Status DC Methylprednisolone (Medrol) 4 mg TIDPC PO Last administered on 06/04/16 11:21 ; Start 06/04/16 at 08:30; Stop 06/04/16 at 17:31; Status DC Methylprednisolone (Medrol) 8 mg QHS PO Last administered on 06/04/16 11:22; Start 06/04/16 at 21:00; Stop 06/04/16 at 21:01; Status DC Methylprednisolone (Medrol) 4 mg QIDAFTMEAL PO Last administered on 06/05/16 08 :52; Start 06/05/16 at 09:00; Stop 06/05/16 at 12:53; Status DC Methylprednisolone (Medrol) 4 mg TID PO ; Start 06/06/16 at 09:00; Stop 06/06/16 at 09:00; Status DC Methylprednisolone (Medrol) 4 mg BID PO Last administered on 06/07/16 07:49; Start 06/07/16 at 09:00; Stop 06/07/16 at 21:01; Status DC Methylprednisolone (Medrol) 4 mg DAILY PO Last administered on 06/08/16 08:58; Start 06/08/16 at 09:00; Stop 06/08/16 at 09:01; Status DC Pantoprazole Sodium (Protonix) 40 mg DAILYAC PO Last administered on 06/03/16 18:35; Start 06/03/16 at 18:00; Stop 06/04/16 at 06:23; Status DC Pantoprazole Sodium (Protonix) 40 mg STK-MED ONCE PO ; Start 06/04/16 at 06:02; Stop 06/04/16 at 06:03; Status DC Pantoprazole Sodium (Protonix) 40 mg DAILYAC PO Last administered on 06/09/16 08:08; Start 06/04/16 at 07:30 Gabapentin (Neurontin) 300 mg STK-MED ONCE PO ; Start 06/05/16 at 08:00; Stop 06/05/16 at 08:01; Status DC Methylprednisolone (Medrol) 12 mg 1X ONCE PO Last administered on 06/05/16 13: 18; Start 06/05/16 at 13:30; Stop 06/05/16 at 13:31; Status DC Gabapentin (Neurontin) 300 mg STK-MED ONCE PO ; Start 06/05/16 at 13:12; Stop 06/05/16 at 13:13; Status DC Gabapentin (Neurontin) 300 mg TID PO Last administered on 06/09/16 08:09; Start 06/05/16 at 14:00 Polyethylene Glycol (miraLAX PACKET) 17 gm 1X ONCE PO Last administered on 06/05 19:30; Start 06/05/16 at 19:30; Stop 06/05/16 at 19:31; Status DC Polyethylene Glycol (miraLAX PACKET) 17 gm DAILY PO Last administered on 08:08; Start 06/06/16 at 09:00 Methylprednisolone (Medrol) 12 mg 1X ONCE PO Last administered on 06/06/16 08: 30; Start 06/06/16 at 09:00; Stop 06/06/16 at 09:01; Status DC Alprazolam (Xanax) 0.25 mg PRN Q8HRS PRN PO ANXIETY / AGITATION Last administered on 06/09/16 00:11; Start 06/07/16 at 16:45 Active Scripts Active Reported Zofran (Ondansetron Hcl) 4 Mg Tablet 1 Tab PO Q6HRS Vimpat (Lacosamide) 10 Mg/1 Ml Solution 5 Ml PO BID Montelukast Sodium Tablet (Montelukast Sodium) 10 Mg Tablet 10 Mg PO HS Amitiza (Lubiprostone) 24 Mcg Capsule 1 Cap PO BID Levothyroxine Sodium 100 Mcg Tablet 1 Tab PO DAILY Neurontin (Gabapentin) 300 Mg Capsule 300 Mg PO TID Plavix (Clopidogrel Bisulfate) 75 Mg Tablet 1 Tab PO DAILY Vitals/I & O Vital Sign - Last 24 Hours 06/08/16 06/08/16 06/08/16 06/08/16 15:00 19:10 19:29 19:59 Temp 97.9 98.2 97.9 98.2 Pulse 78 90 Resp 16 B/P 106/64 119/77 Pulse Ox 97 95 97 O2 Delivery Room Air Room Air Room Air 06/08/16 06/08/16 06/08/16 06/08/16 20:00 23:10 23:12 23:42 Temp 97.9 97.9 Pulse 77 Resp 18 17 B/P 106/52 Pulse Ox 95 97 97 O2 Delivery Room Air Room Air Room Air Room Air 06/09/16 06/09/16 06/09/16 06/09/16 03:10 07:00 08:11 12:00 Temp 98.0 98.3 98.3 98.0 98.3 98.3 Pulse 80 65 72 Resp 18 16 16 B/P 110/63 84/46 107/51 Pulse Ox 95 97 94 O2 Delivery Room Air Room Air Room Air Room Air Intake and Output 06/08/16 06/08/16 06/09/16 15:00 23:00 07:00 Intake Total 600 ml 900 ml Balance 600 ml 900 ml MEGAN SNELL MD Jun 09, 2016 12:59
--- NOTE | 2016-06-09 14:43 | PDOC ---
SUBJECTIVE Subjective Denies acute changes. Reports stable sensory deficits. OBJECTIVE Vital Signs Vital Signs Date Time Temp Pulse Resp B/P Pulse Ox O2 Delivery O2 Flow Rate FiO2 06/09/16 12:00 98.3 72 16 107/51 94 Room Air 98.3 06/09/16 08:11 Room Air 06/09/16 07:00 98.3 65 16 84/46 97 Room Air 98.3 06/09/16 03:10 98.0 80 18 110/63 95 Room Air 98.0 06/08/16 23:42 97 Room Air 06/08/16 23:12 17 97 Room Air 06/08/16 23:10 97.9 77 18 106/52 95 Room Air 97.9 06/08/16 20:00 Room Air 06/08/16 19:59 17 06/08/16 19:29 18 97 Room Air 06/08/16 19:10 98.2 90 18 119/77 95 Room Air 98.2 06/08/16 15:00 97.9 78 16 106/64 97 Room Air 97.9 I & O Intake and Output 06/09/16 07:00 Intake Total 1500 ml Balance 1500 ml Intake Oral 1500 ml PHYSICAL EXAM Physical Exam AAOx4, LOVELL stable, sensation decreased four extremities ASSESSMENT/PLAN Assessment/Plan cervical stenosis -ACDF 06/11/16 which will be day 7 off plavix Problems: COMMENT Lab Laboratory Tests Test 06/08/16 17:29 06/08/16 20:59 06/09/16 07:33 06/09/16 11:58 Glucose (Fingerstick) 78mg/dL (70-99) 121mg/dL (70-99) 88mg/dL (70-99) 100mg/dL (70-99) PADMINI PENA MD Jun 09, 2016 14:43
[2016-06-09 15:00] VITALS: BP 87/50
--- NOTE | 2016-06-09 16:00 | PDOC ---
PROGRESS NOTES Subjective Subjective She feels better Objective Objective Vital Signs Date Time Temp Pulse Resp B/P Pulse Ox O2 Delivery O2 Flow Rate FiO2 06/09/16 15:00 98.2 78 16 87/50 96 Room Air 98.2 Intake and Output 06/09/16 07:00 Intake Total 1500 ml Balance 1500 ml Intake Oral 1500 ml Physical Exam Physical Exam She is sitting in bedside chair and comfortable and working with physical therapy. Plan Plan of Care Plans for cervical decompression laminectomy on 06/11/2016. Comment Review of Relevant I have reviewed the following items ever (where applicable) has been applied. Labs Laboratory Tests Test 06/07/16 17:20 06/07/16 20:57 06/08/16 04:17 06/08/16 07:41 Glucose (Fingerstick) 99mg/dL (70-99) 156mg/dL (70-99) 73mg/dL (70-99) White Blood Count 10.1x10^3/uL (4.0-11.0) Red Blood Count 4.46x10^6/uL (3.50-5.40) Hemoglobin 10.7g/dL (12.0-15.5) Hematocrit 34.5% (36.0-47.0) Mean Corpuscular Volume 77fL (79-100) Mean Corpuscular Hemoglobin 24pg (25-35) Mean Corpuscular Hemoglobin Concent 31g/dL (31-37) Red Cell Distribution Width 15.7% (11.5-14.5) Platelet Count 301x10^3/uL (140-400) Neutrophils (%) (Auto) 64% (31-73) Lymphocytes (%) (Auto) 29% (24-48) Monocytes (%) (Auto) 7% (0-9) Eosinophils (%) (Auto) 1% (0-3) Basophils (%) (Auto) 0% (0-3) Neutrophils # (Auto) 6.4x10^3uL (1.8-7.7) Lymphocytes # (Auto) 2.9x10^3/uL (1.0-4.8) Monocytes # (Auto) 0.7x10^3/uL (0.0-1.1) Eosinophils # (Auto) 0.1x10^3/uL (0.0-0.7) Basophils # (Auto) 0.0x10^3/uL (0.0-0.2) Sodium Level 146mmol/L (136-145) Potassium Level 3.6mmol/L (3.5-5.1) Chloride Level 110mmol/L (98-107) Carbon Dioxide Level 28mmol/L (21-32) Anion Gap 8 (6-14) Blood Urea Nitrogen 18mg/dL (7-20) Creatinine 0.8mg/dL (0.6-1.0) Estimated GFR (Cockcroft-Gault) 75.9 BUN/Creatinine Ratio 23 (6-20) Glucose Level 96mg/dL (70-99) Calcium Level 8.5mg/dL (8.5-10.1) Total Bilirubin 0.2mg/dL (0.2-1.0) Aspartate Amino Transf (AST/SGOT) 8U/L (15-37) Alanine Aminotransferase (ALT/SGPT) 21U/L (14-59) Alkaline Phosphatase 101U/L (46-116) Total Protein 6.2g/dL (6.4-8.2) Albumin 3.0g/dL (3.4-5.0) Albumin/Globulin Ratio 0.9 (1.0-1.7) Test 06/08/16 11:33 06/08/16 17:29 06/08/16 20:59 06/09/16 07:33 Glucose (Fingerstick) 95mg/dL (70-99) 78mg/dL (70-99) 121mg/dL (70-99) 88mg/dL (70-99) Test 06/09/16 11:58 Glucose (Fingerstick) 100mg/dL (70-99) Laboratory Tests Test 06/08/16 17:29 06/08/16 20:59 06/09/16 07:33 06/09/16 11:58 Glucose (Fingerstick) 78mg/dL (70-99) 121mg/dL (70-99) 88mg/dL (70-99) 100mg/dL (70-99) Medications Current Medications Promethazine HCl (Phenergan) 25 mg PRN Q6HRS PRN PO NAUSEA/VOMITING; Start at 21:15 Zonisamide (Zonegran) 100 mg HS PO ; Start 06/02/16 at 22:00; Stop 06/03/16 at 12:14; Status DC Albuterol Sulfate (Ventolin Neb Soln) 2.5 mg PRN Q4HRS PRN NEB SHORTNESS OF BREATH Last administered on 06/08/16 02:34; Start 06/02/16 at 21:15 Clopidogrel Bisulfate (Plavix) 75 mg DAILY PO Last administered on 06/04/16 11 :19; Start 06/03/16 at 09:00; Stop 06/05/16 at 12:08; Status DC Gabapentin (Neurontin) 300 mg TID PO Last administered on 06/05/16 13:18; Start 06/02/16 at 22:00; Stop 06/05/16 at 13:33; Status DC Levothyroxine Sodium (Synthroid) 100 mcg DAILY07 PO Last administered on 07:00; Start 06/03/16 at 09:00 Montelukast Sodium (Singulair) 10 mg HS PO Last administered on 06/08/16 21:13 ; Start 06/02/16 at 22:00 Lacosamide (Vimpat) 50 mg BID PO ; Start 06/02/16 at 22:00; Status Cancel Lubiprostone (Amitiza) 24 mcg BIDWMEALS PO ; Start 06/03/16 at 08:00; Stop 06/03 at 08:00; Status DC Non-Formulary Medication 1 tab Q6HRS PO ; Start 06/03/16 at 00:00; Stop at 00:00; Status DC Morphine Sulfate (Morphine Ir) 15 mg PRN Q8HRS PRN PO PAIN; Start 06/02/16 at 21:15 Ondansetron HCl (Zofran Odt) 4 mg PRN Q6HRS PRN PO NAUSEA; Start 06/02/16 at 22 :00; Status Cancel Lubiprostone (Amitiza) 24 mcg BID PO Last administered on 06/09/16 08:08; Start 06/02/16 at 23:00 Ondansetron HCl (Zofran) 4 mg PRN Q6HRS PRN IV NAUSEA/VOMITING Last administered on 06/02/16 22:30; Start 06/02/16 at 22:15; Stop 06/03/16 at 06:21 ; Status DC Non-Formulary Medication 1 ea BID PO Last administered on 06/09/16 08:10; Start 06/02/16 at 23:00 Morphine Sulfate 4 mg PRN Q4HRS PRN IV SEVERE PAIN Last administered on 23:12; Start 06/03/16 at 02:30 Ondansetron HCl (Zofran) 4 mg PRN Q6HRS PRN IV NAUSEA/VOMITING Last administered on 06/08/16 10:29; Start 06/03/16 at 06:21 Zonisamide (Zonegran) 300 mg QHS PO Last administered on 06/08/16 21:13; Start 06/03/16 at 21:00 Gadobutrol (Gadavist) 8 mmol 1X ONCE IV Last administered on 06/03/16 14:52; Start 06/03/16 at 14:30; Stop 06/03/16 at 14:31; Status DC Baclofen (Lioresal) 10 mg PRN Q6HRS PRN PO MUSCLE SPASMS Last administered on 21:13; Start 06/03/16 at 17:30 Methylprednisolone (Medrol) 8 mg BID PO Last administered on 06/03/16 18:38; Start 06/03/16 at 09:00; Stop 06/03/16 at 21:01; Status DC Methylprednisolone (Medrol) 4 mg BIDPCLD PO Last administered on 06/03/16 18: 37; Start 06/03/16 at 12:30; Stop 06/03/16 at 17:39; Status DC Methylprednisolone (Medrol) 4 mg TIDPC PO Last administered on 06/04/16 11:21 ; Start 06/04/16 at 08:30; Stop 06/04/16 at 17:31; Status DC Methylprednisolone (Medrol) 8 mg QHS PO Last administered on 06/04/16 11:22; Start 06/04/16 at 21:00; Stop 06/04/16 at 21:01; Status DC Methylprednisolone (Medrol) 4 mg QIDAFTMEAL PO Last administered on 06/05/16 08 :52; Start 06/05/16 at 09:00; Stop 06/05/16 at 12:53; Status DC Methylprednisolone (Medrol) 4 mg TID PO ; Start 06/06/16 at 09:00; Stop 06/06/16 at 09:00; Status DC Methylprednisolone (Medrol) 4 mg BID PO Last administered on 06/07/16 07:49; Start 06/07/16 at 09:00; Stop 06/07/16 at 21:01; Status DC Methylprednisolone (Medrol) 4 mg DAILY PO Last administered on 06/08/16 08:58; Start 06/08/16 at 09:00; Stop 06/08/16 at 09:01; Status DC Pantoprazole Sodium (Protonix) 40 mg DAILYAC PO Last administered on 06/03/16 18:35; Start 06/03/16 at 18:00; Stop 06/04/16 at 06:23; Status DC Pantoprazole Sodium (Protonix) 40 mg STK-MED ONCE PO ; Start 06/04/16 at 06:02; Stop 06/04/16 at 06:03; Status DC Pantoprazole Sodium (Protonix) 40 mg DAILYAC PO Last administered on 06/09/16 08:08; Start 06/04/16 at 07:30 Gabapentin (Neurontin) 300 mg STK-MED ONCE PO ; Start 06/05/16 at 08:00; Stop 06/05/16 at 08:01; Status DC Methylprednisolone (Medrol) 12 mg 1X ONCE PO Last administered on 06/05/16 13: 18; Start 06/05/16 at 13:30; Stop 06/05/16 at 13:31; Status DC Gabapentin (Neurontin) 300 mg STK-MED ONCE PO ; Start 06/05/16 at 13:12; Stop 06/05/16 at 13:13; Status DC Gabapentin (Neurontin) 300 mg TID PO Last administered on 06/09/16 13:59; Start 06/05/16 at 14:00 Polyethylene Glycol (miraLAX PACKET) 17 gm 1X ONCE PO Last administered on 06/05 19:30; Start 06/05/16 at 19:30; Stop 06/05/16 at 19:31; Status DC Polyethylene Glycol (miraLAX PACKET) 17 gm DAILY PO Last administered on 08:08; Start 06/06/16 at 09:00 Methylprednisolone (Medrol) 12 mg 1X ONCE PO Last administered on 06/06/16 08: 30; Start 06/06/16 at 09:00; Stop 06/06/16 at 09:01; Status DC Alprazolam (Xanax) 0.25 mg PRN Q8HRS PRN PO ANXIETY / AGITATION Last administered on 06/09/16 00:11; Start 06/07/16 at 16:45 Active Scripts Active Reported Zofran (Ondansetron Hcl) 4 Mg Tablet 1 Tab PO Q6HRS Vimpat (Lacosamide) 10 Mg/1 Ml Solution 5 Ml PO BID Montelukast Sodium Tablet (Montelukast Sodium) 10 Mg Tablet 10 Mg PO HS Amitiza (Lubiprostone) 24 Mcg Capsule 1 Cap PO BID Levothyroxine Sodium 100 Mcg Tablet 1 Tab PO DAILY Neurontin (Gabapentin) 300 Mg Capsule 300 Mg PO TID Plavix (Clopidogrel Bisulfate) 75 Mg Tablet 1 Tab PO DAILY Vitals/I & O Vital Sign - Last 24 Hours 06/08/16 06/08/16 06/08/16 06/08/16 19:10 19:29 19:59 20:00 Temp 98.2 98.2 Pulse 90 Resp B/P 119/77 Pulse Ox 95 97 O2 Delivery Room Air Room Air Room Air 06/08/16 06/08/16 06/08/16 06/09/16 23:10 23:12 23:42 03:10 Temp 97.9 98.0 97.9 98.0 Pulse 77 80 Resp 18 B/P 106/52 110/63 Pulse Ox 95 97 97 95 O2 Delivery Room Air Room Air Room Air Room Air 06/09/16 06/09/16 06/09/16 06/09/16 07:00 08:11 12:00 15:00 Temp 98.3 98.3 98.2 98.3 98.3 98.2 Pulse 65 72 78 Resp 16 B/P 84/46 107/51 87/50 Pulse Ox 97 94 96 O2 Delivery Room Air Room Air Room Air Room Air Intake and Output 06/08/16 06/08/16 06/09/16 15:00 23:00 07:00 Intake Total 600 ml 900 ml Balance 600 ml 900 ml MONTY CASTILLO MD Jun 09, 2016 16:00
[2016-06-09] MEDS: ONDANSETRON PF 4 MG/2 ML VIAL. IV PRN (17:48)
[2016-06-09 19:00] VITALS: BP 106/61
[2016-06-09] MEDS: MORPHINE SULFATE 4 MG/ML DISP.SYRIN. IV PRN (20:58)
[2016-06-09] MEDS: MONTELUKAST SODIUM 10 MG TABLET. PO SCH (21:00)
[2016-06-09] MEDS: ZONISAMIDE 100 MG CAPSULE. PO SCH (21:00)
[2016-06-09] MEDS: BACLOFEN 10 MG TABLET. PO PRN (21:04)
[2016-06-09 23:00] VITALS: BP 123/95
[2016-06-10] VITALS (7 sets, daily range): BP systolic 93–148; BP diastolic 51–105
[2016-06-10] MEDS: ALPRAZOLAM 0.25 MG TABLET. PO PRN (01:03)
[2016-06-10] MEDS: ONDANSETRON PF 4 MG/2 ML VIAL. IV PRN ×3 (01:48→21:09)
[2016-06-10] MEDS: MORPHINE SULFATE 4 MG/ML DISP.SYRIN. IV PRN ×3 (02:56→21:15)
[2016-06-10 04:08] LABS: HEMOGLOBIN 10.9 g/dL (12.0-15.5); RED BLOOD COUNT 4.54 x10^6/uL (3.50-5.40); RED CELL DISTRIBUTION WIDTH 15.7 % (11.5-14.5); WHITE BLOOD COUNT 9.8 x10^3/uL (4.0-11.0)
[2016-06-10 04:26] LABS: ALBUMIN 2.8 g/dL (3.4-5.0); ALBUMIN/GLOBULIN RATIO 0.9 (1.0-1.7); CALCIUM 8.5 mg/dL (8.5-10.1); CREATININE 0.8 mg/dL (0.6-1.0); GFR 75.9; POTASSIUM 3.6 mmol/L (3.5-5.1); TOTAL BILIRUBIN 0.2 mg/dL (0.2-1.0); TOTAL PROTEIN 5.9 g/dL (6.4-8.2)
--- NOTE | 2016-06-10 07:26 | PN ---
DATE: 06/09/2016 SUBJECTIVE: The patient is resting slightly propped up in bed, in no apparent distress. On questioning her, denied any complaint. The nursing staff did not voice any concern and stated that she had an uneventful night. PHYSICAL EXAMINATION: GENERAL: When I examined her, she looked pale, but no jaundice, cyanosis or thyromegaly. No jugular venous distention. No limb edema. VITAL SIGNS: Her heart rate was 72, blood pressure was 107/51, temperature was 98.3, respiratory rate was 16 and oxygen saturation was 94%. The rest of clinical examination is unremarkable, has not really changed. Her intake was 1400, output was 400. LABORATORY DATA: As of yesterday, her white cell count was 10,000, hemoglobin 11, hematocrit 34, MCV 77 and platelet count 301,000. Her chemistry showed a serum sodium 146, potassium 3.6, chloride 110, bicarbonate 28, anion gap of 8, BUN 18, creatinine 0.8, estimated GFR was 76 mL per minute. Her glucose was 96, calcium was 8.5. Total bilirubin, AST, ALT, alkaline phosphatase were normal. Total protein was 6.2, albumin 3. ASSESSMENT AND PLAN: Cervical stenosis, scheduled for laminectomy on Tuesday. GLADYS PHILLIP MD DR: JANIS/lexis JOB#: [id number] / [id number]
[2016-06-10] MEDS: ALBUTEROL SULFATE 2.5 MG/3 ML NEBU. NEB PRN ×2 (08:09→23:24)
[2016-06-10] MEDS: PANTOPRAZOLE 40 MG TABLET.DR. PO SCH (08:37)
[2016-06-10] MEDS: GABAPENTIN 300 MG CAPSULE. PO SCH ×3 (08:37→21:09)
[2016-06-10] MEDS: POLYETHYLENE GLYCOL 3350 17 GM PACKET. PO SCH (08:37)
[2016-06-10] MEDS: LUBIPROSTONE 8 MCG CAPSULE PO SCH ×2 (08:37→21:09)
[2016-06-10] MEDS: LEVOTHYROXINE 100 MCG TABLET PO SCH (08:37)
[2016-06-10] MEDS: VIMPAT PO SCH ×2 (08:41→21:00)
--- NOTE | 2016-06-10 10:00 | PDOC ---
PROGRESS NOTES Subjective Subjective No new complaints. Objective Objective Vital Signs Date Time Temp Pulse Resp B/P Pulse Ox O2 Delivery O2 Flow Rate FiO2 06/10/16 08:10 97 Room Air 06/10/16 07:30 97.5 73 18 94/51 97.5 Intake and Output 06/10/16 07:00 Intake Total 1560 ml Output Total 950 ml Balance 610 ml Intake Oral 1560 ml Output Urine Total 950 ml Physical Exam Physical Exam She is supine in bed and comfortable but she is getting up with physical therapy and walking with roller walker. Plan Plan of Care Plnas for decompression laminectomy tomorrow. Comment Review of Relevant I have reviewed the following items ever (where applicable) has been applied. Labs Laboratory Tests Test 06/08/16 11:33 06/08/16 17:29 06/08/16 20:59 06/09/16 07:33 Glucose (Fingerstick) 95mg/dL (70-99) 78mg/dL (70-99) 121mg/dL (70-99) 88mg/dL (70-99) Test 06/09/16 11:58 06/09/16 16:35 06/10/16 03:00 06/10/16 03:05 Glucose (Fingerstick) 100mg/dL (70-99) 162mg/dL (70-99) White Blood Count 9.8x10^3/uL (4.0-11.0) Red Blood Count 4.54x10^6/uL (3.50-5.40) Hemoglobin 10.9g/dL (12.0-15.5) Hematocrit 35.0% (36.0-47.0) Mean Corpuscular Volume 77fL (79-100) Mean Corpuscular Hemoglobin 24pg (25-35) Mean Corpuscular Hemoglobin Concent 31g/dL (31-37) Red Cell Distribution Width 15.7% (11.5-14.5) Platelet Count 334x10^3/uL (140-400) Sodium Level 144mmol/L (136-145) Potassium Level 3.6mmol/L (3.5-5.1) Chloride Level 109mmol/L (98-107) Carbon Dioxide Level 31mmol/L (21-32) Anion Gap 4 (6-14) Blood Urea Nitrogen 19mg/dL (7-20) Creatinine 0.8mg/dL (0.6-1.0) Estimated GFR (Cockcroft-Gault) 75.9 BUN/Creatinine Ratio 24 (6-20) Glucose Level 93mg/dL (70-99) Calcium Level 8.5mg/dL (8.5-10.1) Total Bilirubin 0.2mg/dL (0.2-1.0) Aspartate Amino Transf (AST/SGOT) 8U/L (15-37) Alanine Aminotransferase (ALT/SGPT) 17U/L (14-59) Alkaline Phosphatase 113U/L (46-116) Total Protein 5.9g/dL (6.4-8.2) Albumin 2.8g/dL (3.4-5.0) Albumin/Globulin Ratio 0.9 (1.0-1.7) Test 06/10/16 07:43 Glucose (Fingerstick) 88mg/dL (70-99) Laboratory Tests Test 06/09/16 11:58 06/09/16 16:35 06/10/16 03:00 06/10/16 03:05 Glucose (Fingerstick) 100mg/dL (70-99) 162mg/dL (70-99) White Blood Count 9.8x10^3/uL (4.0-11.0) Red Blood Count 4.54x10^6/uL (3.50-5.40) Hemoglobin 10.9g/dL (12.0-15.5) Hematocrit 35.0% (36.0-47.0) Mean Corpuscular Volume 77fL (79-100) Mean Corpuscular Hemoglobin 24pg (25-35) Mean Corpuscular Hemoglobin Concent 31g/dL (31-37) Red Cell Distribution Width 15.7% (11.5-14.5) Platelet Count 334x10^3/uL (140-400) Sodium Level 144mmol/L (136-145) Potassium Level 3.6mmol/L (3.5-5.1) Chloride Level 109mmol/L (98-107) Carbon Dioxide Level 31mmol/L (21-32) Anion Gap 4 (6-14) Blood Urea Nitrogen 19mg/dL (7-20) Creatinine 0.8mg/dL (0.6-1.0) Estimated GFR (Cockcroft-Gault) 75.9 BUN/Creatinine Ratio 24 (6-20) Glucose Level 93mg/dL (70-99) Calcium Level 8.5mg/dL (8.5-10.1) Total Bilirubin 0.2mg/dL (0.2-1.0) Aspartate Amino Transf (AST/SGOT) 8U/L (15-37) Alanine Aminotransferase (ALT/SGPT) 17U/L (14-59) Alkaline Phosphatase 113U/L (46-116) Total Protein 5.9g/dL (6.4-8.2) Albumin 2.8g/dL (3.4-5.0) Albumin/Globulin Ratio 0.9 (1.0-1.7) Test 06/10/16 07:43 Glucose (Fingerstick) 88mg/dL (70-99) Medications Current Medications Promethazine HCl (Phenergan) 25 mg PRN Q6HRS PRN PO NAUSEA/VOMITING; Start at 21:15 Zonisamide (Zonegran) 100 mg HS PO ; Start 06/02/16 at 22:00; Stop 06/03/16 at 12:14; Status DC Albuterol Sulfate (Ventolin Neb Soln) 2.5 mg PRN Q4HRS PRN NEB SHORTNESS OF BREATH Last administered on 06/10/16 08:09; Start 06/02/16 at 21:15 Clopidogrel Bisulfate (Plavix) 75 mg DAILY PO Last administered on 06/04/16 11 :19; Start 06/03/16 at 09:00; Stop 06/05/16 at 12:08; Status DC Gabapentin (Neurontin) 300 mg TID PO Last administered on 06/05/16 13:18; Start 06/02/16 at 22:00; Stop 06/05/16 at 13:33; Status DC Levothyroxine Sodium (Synthroid) 100 mcg DAILY07 PO Last administered on 08:37; Start 06/03/16 at 09:00 Montelukast Sodium (Singulair) 10 mg HS PO Last administered on 06/09/16 21:00 ; Start 06/02/16 at 22:00 Lacosamide (Vimpat) 50 mg BID PO ; Start 06/02/16 at 22:00; Status Cancel Lubiprostone (Amitiza) 24 mcg BIDWMEALS PO ; Start 06/03/16 at 08:00; Stop 06/03 at 08:00; Status DC Non-Formulary Medication 1 tab Q6HRS PO ; Start 06/03/16 at 00:00; Stop at 00:00; Status DC Morphine Sulfate (Morphine Ir) 15 mg PRN Q8HRS PRN PO PAIN; Start 06/02/16 at 21:15 Ondansetron HCl (Zofran Odt) 4 mg PRN Q6HRS PRN PO NAUSEA; Start 06/02/16 at 22 :00; Status Cancel Lubiprostone (Amitiza) 24 mcg BID PO Last administered on 06/10/16 08:37; Start 06/02/16 at 23:00 Ondansetron HCl (Zofran) 4 mg PRN Q6HRS PRN IV NAUSEA/VOMITING Last administered on 06/02/16 22:30; Start 06/02/16 at 22:15; Stop 06/03/16 at 06:21 ; Status DC Non-Formulary Medication 1 ea BID PO Last administered on 06/10/16 08:41; Start 06/02/16 at 23:00 Morphine Sulfate 4 mg PRN Q4HRS PRN IV SEVERE PAIN Last administered on 02:56; Start 06/03/16 at 02:30 Ondansetron HCl (Zofran) 4 mg PRN Q6HRS PRN IV NAUSEA/VOMITING Last administered on 06/10/16 01:48; Start 06/03/16 at 06:21 Zonisamide (Zonegran) 300 mg QHS PO Last administered on 06/09/16 21:00; Start 06/03/16 at 21:00 Gadobutrol (Gadavist) 8 mmol 1X ONCE IV Last administered on 06/03/16 14:52; Start 06/03/16 at 14:30; Stop 06/03/16 at 14:31; Status DC Baclofen (Lioresal) 10 mg PRN Q6HRS PRN PO MUSCLE SPASMS Last administered on 21:04; Start 06/03/16 at 17:30 Methylprednisolone (Medrol) 8 mg BID PO Last administered on 06/03/16 18:38; Start 06/03/16 at 09:00; Stop 06/03/16 at 21:01; Status DC Methylprednisolone (Medrol) 4 mg BIDPCLD PO Last administered on 06/03/16 18: 37; Start 06/03/16 at 12:30; Stop 06/03/16 at 17:39; Status DC Methylprednisolone (Medrol) 4 mg TIDPC PO Last administered on 06/04/16 11:21 ; Start 06/04/16 at 08:30; Stop 06/04/16 at 17:31; Status DC Methylprednisolone (Medrol) 8 mg QHS PO Last administered on 06/04/16 11:22; Start 06/04/16 at 21:00; Stop 06/04/16 at 21:01; Status DC Methylprednisolone (Medrol) 4 mg QIDAFTMEAL PO Last administered on 06/05/16 08 :52; Start 06/05/16 at 09:00; Stop 06/05/16 at 12:53; Status DC Methylprednisolone (Medrol) 4 mg TID PO ; Start 06/06/16 at 09:00; Stop 06/06/16 at 09:00; Status DC Methylprednisolone (Medrol) 4 mg BID PO Last administered on 06/07/16 07:49; Start 06/07/16 at 09:00; Stop 06/07/16 at 21:01; Status DC Methylprednisolone (Medrol) 4 mg DAILY PO Last administered on 06/08/16 08:58; Start 06/08/16 at 09:00; Stop 06/08/16 at 09:01; Status DC Pantoprazole Sodium (Protonix) 40 mg DAILYAC PO Last administered on 06/03/16 18:35; Start 06/03/16 at 18:00; Stop 06/04/16 at 06:23; Status DC Pantoprazole Sodium (Protonix) 40 mg STK-MED ONCE PO ; Start 06/04/16 at 06:02; Stop 06/04/16 at 06:03; Status DC Pantoprazole Sodium (Protonix) 40 mg DAILYAC PO Last administered on 06/10/16 08:37; Start 06/04/16 at 07:30 Gabapentin (Neurontin) 300 mg STK-MED ONCE PO ; Start 06/05/16 at 08:00; Stop 06/05/16 at 08:01; Status DC Methylprednisolone (Medrol) 12 mg 1X ONCE PO Last administered on 06/05/16 13: 18; Start 06/05/16 at 13:30; Stop 06/05/16 at 13:31; Status DC Gabapentin (Neurontin) 300 mg STK-MED ONCE PO ; Start 06/05/16 at 13:12; Stop 06/05/16 at 13:13; Status DC Gabapentin (Neurontin) 300 mg TID PO Last administered on 06/10/16 08:37; Start 06/05/16 at 14:00 Polyethylene Glycol (miraLAX PACKET) 17 gm 1X ONCE PO Last administered on 06/05 19:30; Start 06/05/16 at 19:30; Stop 06/05/16 at 19:31; Status DC Polyethylene Glycol (miraLAX PACKET) 17 gm DAILY PO Last administered on 08:37; Start 06/06/16 at 09:00 Methylprednisolone (Medrol) 12 mg 1X ONCE PO Last administered on 06/06/16 08: 30; Start 06/06/16 at 09:00; Stop 06/06/16 at 09:01; Status DC Alprazolam (Xanax) 0.25 mg PRN Q8HRS PRN PO ANXIETY / AGITATION Last administered on 06/10/16 01:03; Start 06/07/16 at 16:45 Ondansetron HCl (Zofran) 4 mg PRN Q6HRS PRN IV NAUSEA/VOMITING; Start 06/11/16 at 07:00; Stop 06/12/16 at 06:59 Fentanyl Citrate (Fentanyl 2ml Vial) 25 mcg PRN Q5MIN PRN IV MILD PAIN; Start 06/11/16 at 07:00; Stop 06/12/16 at 06:59 Fentanyl Citrate 50 mcg 50 mcg PRN Q5MIN PRN IV MODERATE PAIN; Start 06/11/16 at 07:00; Stop 06/12/16 at 06:59 Lactated Ringer's (Iv Lactated Ringers) 1,000 ml @ 0 mls/hr Q0M IV ; Start 06/11 at 07:00; Stop 06/11/16 at 18:59 Lidocaine HCl 2 ml PRN 1X PRN ID PRIOR TO IV START; Start 06/11/16 at 07:00; Stop 06/12/16 at 06:59 Prochlorperazine Edisylate (Compazine) 5 mg PACU PRN PRN IV NAUSEA, MRX1; Start 06/11/16 at 07:00; Stop 06/12/16 at 06:59 Active Scripts Active Reported Zofran (Ondansetron Hcl) 4 Mg Tablet 1 Tab PO Q6HRS Vimpat (Lacosamide) 10 Mg/1 Ml Solution 5 Ml PO BID Montelukast Sodium Tablet (Montelukast Sodium) 10 Mg Tablet 10 Mg PO HS Amitiza (Lubiprostone) 24 Mcg Capsule 1 Cap PO BID Levothyroxine Sodium 100 Mcg Tablet 1 Tab PO DAILY Neurontin (Gabapentin) 300 Mg Capsule 300 Mg PO TID Plavix (Clopidogrel Bisulfate) 75 Mg Tablet 1 Tab PO DAILY Vitals/I & O Vital Sign - Last 24 Hours 06/09/16 06/09/16 06/09/16 06/09/16 12:00 15:00 19:00 20:00 Temp 98.3 98.2 98.3 98.3 98.2 98.3 Pulse 72 78 72 Resp 18 B/P 107/51 87/50 106/61 Pulse Ox 94 96 98 O2 Delivery Room Air Room Air Room Air Room Air 06/09/16 06/10/16 06/10/16 06/10/16 23:00 03:00 07:30 08:10 Temp 97.9 99.4 97.5 97.9 99.4 97.5 Pulse 74 79 73 Resp 18 B/P 123/95 113/63 94/51 Pulse Ox 98 94 97 97 O2 Delivery Room Air Room Air Room Air Room Air Intake and Output 06/09/16 06/09/16 06/10/16 15:00 23:00 07:00 Intake Total 360 ml 800 ml 400 ml Output Total 550 ml 400 ml Balance 360 ml 250 ml 0 ml MONTY CASTILLO MD Jun 10, 2016 10:00
--- NOTE | 2016-06-10 11:58 | PDOC ---
SUBJECTIVE Subjective Denies acute changes. OBJECTIVE Vital Signs Vital Signs Date Time Temp Pulse Resp B/P Pulse Ox O2 Delivery O2 Flow Rate FiO2 06/10/16 10:58 97.9 85 18 93/64 97 Room Air 97.9 06/10/16 08:10 97 Room Air 06/10/16 07:30 97.5 73 18 94/51 97 Room Air 97.5 06/10/16 03:00 99.4 79 18 113/63 94 Room Air 99.4 06/09/16 23:00 97.9 74 18 123/95 98 Room Air 97.9 06/09/16 20:00 Room Air 06/09/16 19:00 98.3 72 18 106/61 98 Room Air 98.3 06/09/16 15:00 98.2 78 16 87/50 96 Room Air 98.2 06/09/16 12:00 98.3 72 16 107/51 94 Room Air 98.3 I & O Intake and Output 06/10/16 07:00 Intake Total 1560 ml Output Total 950 ml Balance 610 ml Intake Oral 1560 ml Output Urine Total 950 ml PHYSICAL EXAM Physical Exam AAOx4, NAD, LOVELL stable, sensation deficit stable ASSESSMENT/PLAN Assessment/Plan 50F with cervical stenosis -ACDF in AM Problems: COMMENT Lab Laboratory Tests Test 06/09/16 11:58 06/09/16 16:35 06/10/16 03:00 06/10/16 03:05 Glucose (Fingerstick) 100mg/dL (70-99) 162mg/dL (70-99) White Blood Count 9.8x10^3/uL (4.0-11.0) Red Blood Count 4.54x10^6/uL (3.50-5.40) Hemoglobin 10.9g/dL (12.0-15.5) Hematocrit 35.0% (36.0-47.0) Mean Corpuscular Volume 77fL (79-100) Mean Corpuscular Hemoglobin 24pg (25-35) Mean Corpuscular Hemoglobin Concent 31g/dL (31-37) Red Cell Distribution Width 15.7% (11.5-14.5) Platelet Count 334x10^3/uL (140-400) Sodium Level 144mmol/L (136-145) Potassium Level 3.6mmol/L (3.5-5.1) Chloride Level 109mmol/L (98-107) Carbon Dioxide Level 31mmol/L (21-32) Anion Gap 4 (6-14) Blood Urea Nitrogen 19mg/dL (7-20) Creatinine 0.8mg/dL (0.6-1.0) Estimated GFR (Cockcroft-Gault) 75.9 BUN/Creatinine Ratio 24 (6-20) Glucose Level 93mg/dL (70-99) Calcium Level 8.5mg/dL (8.5-10.1) Total Bilirubin 0.2mg/dL (0.2-1.0) Aspartate Amino Transf (AST/SGOT) 8U/L (15-37) Alanine Aminotransferase (ALT/SGPT) 17U/L (14-59) Alkaline Phosphatase 113U/L (46-116) Total Protein 5.9g/dL (6.4-8.2) Albumin 2.8g/dL (3.4-5.0) Albumin/Globulin Ratio 0.9 (1.0-1.7) Test 06/10/16 07:43 06/10/16 11:28 Glucose (Fingerstick) 88mg/dL (70-99) 94mg/dL (70-99) PADMINI PENA MD Jun 10, 2016 11:58
[2016-06-10] MEDS: ZONISAMIDE 100 MG CAPSULE. PO SCH (21:08)
[2016-06-10] MEDS: MONTELUKAST SODIUM 10 MG TABLET. PO SCH (21:09)
[2016-06-10] MEDS: BACLOFEN 10 MG TABLET. PO PRN (21:15)
[2016-06-11] VITALS (12 sets, daily range): BP systolic 101–137; BP diastolic 62–95
[2016-06-11] MEDS ORDERED: BACITRACIN 50,000 UNIT in IV NORMAL SALINE 1000ML BAG 1,000 ML IRR ONE (06:00)
[2016-06-11] MEDS ORDERED: BUPIVAC MPF-EPI 0.5%-1:200000 30 ML VIAL. ONE (06:43)
[2016-06-11] MEDS ORDERED: LIDOCAINE 1%/EPI 1:100,000 20 ML VIAL. ONE (06:44)
[2016-06-11] MEDS ORDERED: BUPIVACAINE 0.5% 50 ML VIAL. ONE (06:44)
[2016-06-11] MEDS ORDERED: GELATIN SPONGE SIZE 100. ONE (06:45)
[2016-06-11] MEDS ORDERED: THROMBIN 20,000 UNIT SPRAY.SYRN KIT TP ONE (06:45)
[2016-06-11] MEDS ORDERED: LIDOCAINE 1% 1 ML SYRINGE. ID PRN (07:00)
[2016-06-11] MEDS ORDERED: ONDANSETRON PF 4 MG/2 ML VIAL. IV PRN (07:00)
[2016-06-11] MEDS ORDERED: IV RINGERS,LACTATED 1000ML 1,000 ML IV SCH (07:00)
[2016-06-11] MEDS ORDERED: PROCHLORPERAZINE 10 MG/2 ML VIAL. IV PRN (07:00)
[2016-06-11] MEDS ORDERED: FENTANYL PF 100 MCG/2 ML VIAL. IV PRN (07:00)
[2016-06-11] MEDS: LEVOTHYROXINE 100 MCG TABLET PO SCH (07:00)
[2016-06-11] MEDS: PANTOPRAZOLE 40 MG TABLET.DR. PO SCH (07:15)
[2016-06-11] MEDS: VIMPAT PO SCH ×2 (07:15→21:00)
[2016-06-11] MEDS: GABAPENTIN 300 MG CAPSULE. PO SCH ×3 (07:16→21:00)
[2016-06-11] MEDS: POLYETHYLENE GLYCOL 3350 17 GM PACKET. PO SCH (07:16)
[2016-06-11] MEDS: LUBIPROSTONE 8 MCG CAPSULE PO SCH ×2 (07:16→21:00)
[2016-06-11] MEDS ORDERED: PROPOFOL 50 ML IV ONE ×2 (07:27→10:06)
[2016-06-11] MEDS ORDERED: PROPOFOL 20 ML IV ONE (07:27)
[2016-06-11] MEDS ORDERED: LIDOCAINE 2% 100 MG/5 ML SYRINGE. ONE (07:27)
[2016-06-11] MEDS ORDERED: REMIFENTANIL 2 MG VIAL. IV ONE (07:28)
[2016-06-11] MEDS ORDERED: ROCURONIUM 50 MG/5 ML VIAL. ONE (07:28)
[2016-06-11] MEDS ORDERED: 0.9 % SODIUM CHLORIDE 50 ML VIAL. IJ ONE (07:28)
[2016-06-11] MEDS ORDERED: SUCCINYLCHOLINE 200 MG/10 ML VIAL. ONE (07:28)
[2016-06-11] MEDS ORDERED: FENTANYL PF 100 MCG/2 ML VIAL. ONE (07:28)
--- NOTE | 2016-06-11 07:37 | PN ---
DATE: 06/10/2016 SUBJECTIVE: The patient is resting, slightly propped up in bed, in no apparent distress. On questioning her, denied any complaints. She did work with physical therapy and has been walking and also using her roller walker. All her vital signs are stable. Her lab works were reviewed and are all within acceptable range. PLAN: She is scheduled for decompression laminectomy tomorrow. GLADYS PHILLIP MD DR: JANIS/lexis JOB#: [id number] / [id number]
[2016-06-11] MEDS ORDERED: CEFAZOLIN 2GM PREMIX 50 ML IV ONE (08:28)
[2016-06-11] MEDS ORDERED: DEXAMETHASONE SOD PHOS 20 MG/5 ML VIAL. ONE (08:57)
[2016-06-11] MEDS ORDERED: DESFLURANE 61 TO 120 MINUTES IH ONE (08:57)
--- NOTE | 2016-06-11 08:59 | PDOC ---
SUBJECTIVE Subjective Denies acute changes. Still with sensory disturbance. OBJECTIVE Vital Signs Vital Signs Date Time Temp Pulse Resp B/P Pulse Ox O2 Delivery O2 Flow Rate FiO2 06/11/16 08:01 97.6 76 12 106/62 94 Room Air 97.6 06/11/16 07:50 Room Air 06/11/16 03:00 96.0 75 18 123/95 96 96.0 06/10/16 23:26 96 Room Air 06/10/16 23:00 98.0 90 18 140/90 98 98.0 06/10/16 21:45 96 Room Air 06/10/16 21:15 94 Room Air 06/10/16 20:00 Room Air 06/10/16 19:00 99.4 113 18 148/105 97 Room Air 99.4 06/10/16 15:47 18 06/10/16 15:09 20 94 Room Air 06/10/16 14:47 99.1 79 18 98/61 94 Room Air 99.1 06/10/16 10:58 97.9 85 18 93/64 97 Room Air 97.9 I & O Intake and Output 06/11/16 07:00 Intake Total 1920 ml Output Total 825 ml Balance 1095 ml Intake Oral 1920 ml Output Urine Total 825 ml PHYSICAL EXAM Physical Exam AAOx4, NAD, LOVELL stable, sensation stable ASSESSMENT/PLAN Assessment/Plan cervical stenosis -ACDF today Problems: COMMENT Lab Laboratory Tests Test 06/10/16 11:28 06/10/16 16:25 06/11/16 07:49 Glucose (Fingerstick) 94mg/dL (70-99) 104mg/dL (70-99) 79mg/dL (70-99) PADMINI PENA MD Jun 11, 2016 08:59
[2016-06-11] MEDS ORDERED: EPHEDRINE PF IN SALINE 50 MG/5 ML DISP.SYRIN. IV ONE (09:33)
[2016-06-11] MEDS ORDERED: ONDANSETRON PF 4 MG/2 ML VIAL. ONE (10:07)
--- NOTE | 2016-06-11 11:36 | PDOC ---
BRIEF OPERATIVE NOTE Date: Jun 11, 2016 Pre-Op Diagnosis cervical stenosis Post-Op Diagnosis same Procedure Performed anterior cervical discectomy and fusion C3-4, C4-5 Surgeon Marina [employer] Att[employer] none Anesthesia Type: General Blood Loss 20mL Specimens Obtained disk Findings prominent stenosis C3-4 and C4-5 from degenerative bulging/herniated disks Complications none apparent Additional Remarks neuromonitoring remained at least baseline throughout the procedure PADMINI PENA MD Jun 11, 2016 11:36
[2016-06-11] MEDS ORDERED: MORPHINE SULFATE 10 MG/5 ML ORAL SOLUTION. PO PRN (12:00)
[2016-06-11] MEDS ORDERED: MORPHINE IR 15 MG TABLET PO PRN (12:00)
[2016-06-11] MEDS: FENTANYL PF 100 MCG/2 ML VIAL. IV PRN ×2 (12:05→12:29)
[2016-06-11] MEDS: MORPHINE SULFATE 4 MG/ML DISP.SYRIN. IV PRN ×2 (14:04→19:42)
[2016-06-11] MEDS: BACLOFEN 10 MG TABLET. PO PRN (14:12)
--- NOTE | 2016-06-11 18:23 | PDOC ---
PROGRESS NOTES Subjective Subjective No new complaints. Objective Objective Vital Signs Date Time Temp Pulse Resp B/P Pulse Ox O2 Delivery O2 Flow Rate FiO2 06/11/16 14:58 Nasal Cannula 1.5 06/11/16 12:45 96 18 137/67 95 06/11/16 12:30 97.0 97.0 Intake and Output 06/11/16 07:00 Intake Total 1920 ml Output Total 825 ml Balance 1095 ml Intake Oral 1920 ml Output Urine Total 825 ml Physical Exam Physical Exam She is supine in bed and moves all 4 extremities actively. Assessment Assessment Problems Medical Problems: (1) Cervical stenosis of spine Status: Acute (2) END STAGE RENAL DISEASE Status: Acute Surgical Problems: (1) Status post cervical discectomy Status: Acute (2) Status post cervical spinal fusion Status: Acute Plan Plan of Care To get her up as tolerated. Comment Review of Relevant I have reviewed the following items ever (where applicable) has been applied. Labs Laboratory Tests Test 06/10/16 03:00 06/10/16 03:05 06/10/16 07:43 06/10/16 11:28 White Blood Count 9.8x10^3/uL (4.0-11.0) Red Blood Count 4.54x10^6/uL (3.50-5.40) Hemoglobin 10.9g/dL (12.0-15.5) Hematocrit 35.0% (36.0-47.0) Mean Corpuscular Volume 77fL (79-100) Mean Corpuscular Hemoglobin 24pg (25-35) Mean Corpuscular Hemoglobin Concent 31g/dL (31-37) Red Cell Distribution Width 15.7% (11.5-14.5) Platelet Count 334x10^3/uL (140-400) Sodium Level 144mmol/L (136-145) Potassium Level 3.6mmol/L (3.5-5.1) Chloride Level 109mmol/L (98-107) Carbon Dioxide Level 31mmol/L (21-32) Anion Gap 4 (6-14) Blood Urea Nitrogen 19mg/dL (7-20) Creatinine 0.8mg/dL (0.6-1.0) Estimated GFR (Cockcroft-Gault) 75.9 BUN/Creatinine Ratio 24 (6-20) Glucose Level 93mg/dL (70-99) Calcium Level 8.5mg/dL (8.5-10.1) Total Bilirubin 0.2mg/dL (0.2-1.0) Aspartate Amino Transf (AST/SGOT) 8U/L (15-37) Alanine Aminotransferase (ALT/SGPT) 17U/L (14-59) Alkaline Phosphatase 113U/L (46-116) Total Protein 5.9g/dL (6.4-8.2) Albumin 2.8g/dL (3.4-5.0) Albumin/Globulin Ratio 0.9 (1.0-1.7) Glucose (Fingerstick) 88mg/dL (70-99) 94mg/dL (70-99) Test 06/10/16 16:25 06/11/16 07:49 06/11/16 11:57 06/11/16 16:55 Glucose (Fingerstick) 104mg/dL (70-99) 79mg/dL (70-99) 104mg/dL (70-99) 142mg/dL (70-99) Laboratory Tests Test 06/11/16 07:49 06/11/16 11:57 06/11/16 16:55 Glucose (Fingerstick) 79mg/dL (70-99) 104mg/dL (70-99) 142mg/dL (70-99) Medications Current Medications Promethazine HCl (Phenergan) 25 mg PRN Q6HRS PRN PO NAUSEA/VOMITING; Start at 21:15 Zonisamide (Zonegran) 100 mg HS PO ; Start 06/02/16 at 22:00; Stop 06/03/16 at 12:14; Status DC Albuterol Sulfate (Ventolin Neb Soln) 2.5 mg PRN Q4HRS PRN NEB SHORTNESS OF BREATH Last administered on 06/10/16 23:24; Start 06/02/16 at 21:15 Clopidogrel Bisulfate (Plavix) 75 mg DAILY PO Last administered on 06/04/16 11 :19; Start 06/03/16 at 09:00; Stop 06/05/16 at 12:08; Status DC Gabapentin (Neurontin) 300 mg TID PO Last administered on 06/05/16 13:18; Start 06/02/16 at 22:00; Stop 06/05/16 at 13:33; Status DC Levothyroxine Sodium (Synthroid) 100 mcg DAILY07 PO Last administered on 08:37; Start 06/03/16 at 09:00 Montelukast Sodium (Singulair) 10 mg HS PO Last administered on 06/10/16 21:09 ; Start 06/02/16 at 22:00 Lacosamide (Vimpat) 50 mg BID PO ; Start 06/02/16 at 22:00; Status Cancel Lubiprostone (Amitiza) 24 mcg BIDWMEALS PO ; Start 06/03/16 at 08:00; Stop 06/03 at 08:00; Status DC Non-Formulary Medication 1 tab Q6HRS PO ; Start 06/03/16 at 00:00; Stop at 00:00; Status DC Morphine Sulfate (Morphine Ir) 15 mg PRN Q8HRS PRN PO PAIN; Start 06/02/16 at 21:15; Stop 06/11/16 at 11:53; Status DC Ondansetron HCl (Zofran Odt) 4 mg PRN Q6HRS PRN PO NAUSEA; Start 06/02/16 at 22 :00; Status Cancel Lubiprostone (Amitiza) 24 mcg BID PO Last administered on 06/10/16 21:09; Start 06/02/16 at 23:00 Ondansetron HCl (Zofran) 4 mg PRN Q6HRS PRN IV NAUSEA/VOMITING Last administered on 06/02/16 22:30; Start 06/02/16 at 22:15; Stop 06/03/16 at 06:21 ; Status DC Non-Formulary Medication 1 ea BID PO Last administered on 06/10/16 21:00; Start 06/02/16 at 23:00 Morphine Sulfate 4 mg PRN Q4HRS PRN IV SEVERE PAIN Last administered on 14:04; Start 06/03/16 at 02:30 Ondansetron HCl (Zofran) 4 mg PRN Q6HRS PRN IV NAUSEA/VOMITING Last administered on 06/10/16 21:09; Start 06/03/16 at 06:21 Zonisamide (Zonegran) 300 mg QHS PO Last administered on 06/10/16 21:08; Start 06/03/16 at 21:00 Gadobutrol (Gadavist) 8 mmol 1X ONCE IV Last administered on 06/03/16 14:52; Start 06/03/16 at 14:30; Stop 06/03/16 at 14:31; Status DC Baclofen (Lioresal) 10 mg PRN Q6HRS PRN PO MUSCLE SPASMS Last administered on 14:12; Start 06/03/16 at 17:30 Methylprednisolone (Medrol) 8 mg BID PO Last administered on 06/03/16 18:38; Start 06/03/16 at 09:00; Stop 06/03/16 at 21:01; Status DC Methylprednisolone (Medrol) 4 mg BIDPCLD PO Last administered on 06/03/16 18: 37; Start 06/03/16 at 12:30; Stop 06/03/16 at 17:39; Status DC Methylprednisolone (Medrol) 4 mg TIDPC PO Last administered on 06/04/16 11:21 ; Start 06/04/16 at 08:30; Stop 06/04/16 at 17:31; Status DC Methylprednisolone (Medrol) 8 mg QHS PO Last administered on 06/04/16 11:22; Start 06/04/16 at 21:00; Stop 06/04/16 at 21:01; Status DC Methylprednisolone (Medrol) 4 mg QIDAFTMEAL PO Last administered on 06/05/16 08 :52; Start 06/05/16 at 09:00; Stop 06/05/16 at 12:53; Status DC Methylprednisolone (Medrol) 4 mg TID PO ; Start 06/06/16 at 09:00; Stop 06/06/16 at 09:00; Status DC Methylprednisolone (Medrol) 4 mg BID PO Last administered on 06/07/16 07:49; Start 06/07/16 at 09:00; Stop 06/07/16 at 21:01; Status DC Methylprednisolone (Medrol) 4 mg DAILY PO Last administered on 06/08/16 08:58; Start 06/08/16 at 09:00; Stop 06/08/16 at 09:01; Status DC Pantoprazole Sodium (Protonix) 40 mg DAILYAC PO Last administered on 06/03/16 18:35; Start 06/03/16 at 18:00; Stop 06/04/16 at 06:23; Status DC Pantoprazole Sodium (Protonix) 40 mg STK-MED ONCE PO ; Start 06/04/16 at 06:02; Stop 06/04/16 at 06:03; Status DC Pantoprazole Sodium (Protonix) 40 mg DAILYAC PO Last administered on 06/10/16 08:37; Start 06/04/16 at 07:30 Gabapentin (Neurontin) 300 mg STK-MED ONCE PO ; Start 06/05/16 at 08:00; Stop 06/05/16 at 08:01; Status DC Methylprednisolone (Medrol) 12 mg 1X ONCE PO Last administered on 06/05/16 13: 18; Start 06/05/16 at 13:30; Stop 06/05/16 at 13:31; Status DC Gabapentin (Neurontin) 300 mg STK-MED ONCE PO ; Start 06/05/16 at 13:12; Stop 06/05/16 at 13:13; Status DC Gabapentin (Neurontin) 300 mg TID PO Last administered on 06/10/16 21:09; Start 06/05/16 at 14:00 Polyethylene Glycol (miraLAX PACKET) 17 gm 1X ONCE PO Last administered on 06/05 19:30; Start 06/05/16 at 19:30; Stop 06/05/16 at 19:31; Status DC Polyethylene Glycol (miraLAX PACKET) 17 gm DAILY PO Last administered on 08:37; Start 06/06/16 at 09:00 Methylprednisolone (Medrol) 12 mg 1X ONCE PO Last administered on 06/06/16 08: 30; Start 06/06/16 at 09:00; Stop 06/06/16 at 09:01; Status DC Alprazolam (Xanax) 0.25 mg PRN Q8HRS PRN PO ANXIETY / AGITATION Last administered on 06/10/16 01:03; Start 06/07/16 at 16:45 Ondansetron HCl (Zofran) 4 mg PRN Q6HRS PRN IV NAUSEA/VOMITING; Start 06/11/16 at 07:00; Stop 06/12/16 at 06:59 Fentanyl Citrate (Fentanyl 2ml Vial) 25 mcg PRN Q5MIN PRN IV MILD PAIN; Start 06/11/16 at 07:00; Stop 06/12/16 at 06:59 Fentanyl Citrate 50 mcg 50 mcg PRN Q5MIN PRN IV MODERATE PAIN Last administered on 06/11/16 12:29; Start 06/11/16 at 07:00; Stop 06/12/16 at 06:59 Lactated Ringer's (Iv Lactated Ringers) 1,000 ml @ 0 mls/hr Q0M IV Last administered on 06/11/16 08:05; Start 06/11/16 at 07:00; Stop 06/11/16 at 18:59 Lidocaine HCl 2 ml PRN 1X PRN ID PRIOR TO IV START; Start 06/11/16 at 07:00; Stop 06/12/16 at 06:59 Prochlorperazine Edisylate 5 mg 5 mg PACU PRN PRN IV NAUSEA, MRX1; Start at 07:00; Stop 06/12/16 at 06:59 Bacitracin/Sodium Chloride (Bacitracin/Iv Sodium Chloride 0.9% 1000ml Bag) 1, 000 ml @ 1,000 mls/hr 1X PERIOP ONCE IRR Last administered on 06/11/16 09:37 ; Start 06/11/16 at 06:00; Stop 06/11/16 at 06:59; Status DC Bupivacaine HCl/ Epinephrine Bitart (Sensorcain-Mpf Epi 0.5%-1:[id number]) 30 ml STK -MED ONCE .ROUTE Last administered on 06/11/16 09:37; Start 06/11/16 at 06:43; Stop 06/11/16 at 06:44; Status DC Bupivacaine HCl (Marcaine 0.5%) 50 ml STK-MED ONCE .ROUTE ; Start 06/11/16 at 06: 44; Stop 06/11/16 at 06:45; Status DC Lidocaine/ Epinephrine (Xylocaine 1%-Epi 1:100,000) 20 ml STK-MED ONCE .ROUTE ; Start 06/11/16 at 06:44; Stop 06/11/16 at 06:45; Status DC Thrombin 20,000 unit STK-MED ONCE TP Last administered on 06/11/16 09:37; Start 06/11/16 at 06:45; Stop 06/11/16 at 06:46; Status DC Gelatin 1 each 1 each STK-MED ONCE .ROUTE ; Start 06/11/16 at 06:45; Stop at 06:46; Status DC Propofol (Diprivan) 20 ml @ As Directed STK-MED ONCE IV ; Start 06/11/16 at 07:27 ; Stop 06/11/16 at 07:28; Status DC Lidocaine HCl 100 mg 100 mg STK-MED ONCE .ROUTE ; Start 06/11/16 at 07:27; Stop 06/11/16 at 07:28; Status DC Propofol (Diprivan) 50 ml @ As Directed STK-MED ONCE IV ; Start 06/11/16 at 07:27 ; Stop 06/11/16 at 07:28; Status DC Fentanyl Citrate (Fentanyl 2ml Vial) 100 mcg STK-MED ONCE .ROUTE ; Start at 07:28; Stop 06/11/16 at 07:29; Status DC Remifentanil HCl (Ultiva) 2 mg STK-MED ONCE IV ; Start 06/11/16 at 07:28; Stop at 07:29; Status DC Rocuronium [place] (Zemuron) 50 mg STK-MED ONCE .ROUTE ; Start 06/11/16 at 07:28 ; Stop 06/11/16 at 07:29; Status DC Sodium Chloride (Sodium Chloride) 50 ml STK-MED ONCE IJ ; Start 06/11/16 at 07:28 ; Stop 06/11/16 at 07:29; Status DC Succinylcholine Chloride 200 mg 200 mg STK-MED ONCE .ROUTE ; Start 06/11/16 at 07 :28; Stop 06/11/16 at 07:29; Status DC Cefazolin Sodium/ Dextrose (Ancef 2gm Premix) 50 ml @ As Directed STK-MED ONCE IV ; Start 06/11/16 at 08:28; Stop 06/11/16 at 08:29; Status DC Dexamethasone Sodium Phosphate (Decadron) 20 mg STK-MED ONCE .ROUTE ; Start 06/11 at 08:57; Stop 06/11/16 at 08:58; Status DC Desflurane 60 ml 60 ml STK-MED ONCE IH ; Start 06/11/16 at 08:57; Stop 06/11/16 at 08:58; Status DC Cefazolin Sodium/ Dextrose (Ancef 2gm Premix) 50 ml @ 100 mls/hr 1X PREOP PRN IV Pre Op Last administered on 06/11/16t 09:14; Start 06/12/16 at 06:00; Stop 06/12 at 18:00 Ephedrine Sulfate 50 mg 50 mg STK-MED ONCE IV ; Start 06/11/16 at 09:33; Stop 06/11/16 at 09:34; Status DC Propofol (Diprivan) 50 ml @ As Directed STK-MED ONCE IV ; Start 06/11/16 at 10:06 ; Stop 06/11/16 at 10:07; Status DC Ondansetron HCl (Zofran) 4 mg STK-MED ONCE .ROUTE ; Start 06/11/16 at 10:07; Stop 06/11/16 at 10:08; Status DC Morphine Sulfate (Morphine Oral Solution) 5 mg PRN Q4HRS PRN PO PAIN; Start 06/11/16 at 12:00 Morphine Sulfate (Morphine Oral Solution) 10 mg PRN Q4HRS PRN PO PAIN; Start at 12:00 Morphine Sulfate (Morphine Ir) 15 mg PRN Q4HRS PRN PO PAIN; Start 06/11/16 at 12 :00 Active Scripts Active Reported Zofran (Ondansetron Hcl) 4 Mg Tablet 1 Tab PO Q6HRS Vimpat (Lacosamide) 10 Mg/1 Ml Solution 5 Ml PO BID Montelukast Sodium Tablet (Montelukast Sodium) 10 Mg Tablet 10 Mg PO HS Amitiza (Lubiprostone) 24 Mcg Capsule 1 Cap PO BID Levothyroxine Sodium 100 Mcg Tablet 1 Tab PO DAILY Neurontin (Gabapentin) 300 Mg Capsule 300 Mg PO TID Plavix (Clopidogrel Bisulfate) 75 Mg Tablet 1 Tab PO DAILY Vitals/I & O Vital Sign - Last 24 Hours 06/10/16 06/10/16 06/10/16 06/10/16 19:00 20:00 21:15 21:45 Temp 99.4 99.4 Pulse 113 Resp 18 B/P 148/105 Pulse Ox 97 94 96 O2 Delivery Room Air Room Air Room Air 06/10/16 06/10/16 06/11/16 06/11/16 23:00 23:26 03:00 07:50 Temp 98.0 96.0 98.0 96.0 Pulse 90 75 Resp 18 18 B/P 140/90 123/95 Pulse Ox 98 96 96 O2 Delivery Room Air Room Air 06/11/16 06/11/16 06/11/16 06/11/16 08:01 11:45 11:45 12:00 Temp 97.6 97.6 97.6 97.6 Pulse 76 97 114 Resp 12 20 20 B/P 106/62 146/73 156/75 Pulse Ox 94 97 100 O2 Delivery Room Air Mask Simple Mask Simple Mask O2 Flow Rate 10 10 10 06/11/16 06/11/16 06/11/16 06/11/16 12:05 12:15 12:29 12:30 Temp 97.0 97.0 Pulse 110 102 Resp 18 18 18 18 B/P 152/65 131/70 Pulse Ox 100 93 100 95 O2 Delivery Simple Mask Nasal Cannula Nasal Cannula Nasal Cannula O2 Flow Rate 10.0 3 3.0 3 06/11/16 06/11/16 06/11/16 06/11/16 12:31 12:45 14:04 14:58 Pulse 96 Resp 18 B/P 137/67 Pulse Ox 95 O2 Delivery Nasal Cannula Nasal Cannula Nasal Cannula Nasal Cannula O2 Flow Rate 3.0 3 1.5 1.5 Intake and Output 06/10/16 06/10/16 06/11/16 15:00 23:00 07:00 Intake Total 480 ml 1440 ml Output Total 200 ml 450 ml 175 ml Balance 280 ml 990 ml -175 ml MONTY CASTILLO MD Jun 11, 2016 18:23
--- NOTE | 2016-06-11 19:13 | OP ---
DATE OF SURGERY: 06/11/2016 SURGEON: Rush Pena M.D. [employer] MACHINE OPERATOR AUTOMATIC: None. PREOPERATIVE DIAGNOSES: Cervical stenosis, myelopathy, paresthesias with cervical disk herniation. POSTOPERATIVE DIAGNOSES: Cervical stenosis, myelopathy, paresthesias with cervical disk herniation. PROCEDURE: Anterior cervical diskectomy and fusion of cervical 3-4 and cervical 4-5 utilizing an Amendia anterior instrumentation with use of structural allograft fusion substrate at both locations. ANESTHESIA: General. COMPLICATIONS: None intraprocedurally. INDICATIONS FOR THE PROCEDURE: The patient is a 50-year-old female who developed increased paresthesia and localized to a prominent stenosis just cephalad to a prior surgery at cervical 3-4 and cervical 4-5, was felt that a decompression would be beneficial. She had been on Plavix and she has now been off Plavix for the duration of 7 days. Per guidelines for the aforementioned procedure, please refer to the patient chart for additional details. DESCRIPTION OF PROCEDURE: After informed consent was obtained, the patient was brought into the operating room. She was placed under general anesthesia. Neuro monitoring was instituted and baseline potentials were obtained. All pressure points were checked and padded appropriately. The patient was placed in supine position with the head in very slight extension. The anterior neck was then prepped and draped in usual sterile fashion. A horizontal incision centered over the region of cervical 4 was made with a 10 blade scalpel from near the midline extending leftward across the anterior cervical Sarkis lines. The blunt dissection was carried out in the underlying soft tissues with a blunt and Metzenbaum scissors and the platysma was sharply divided in the plane of the incision and blunt dissection techniques were utilized to create a plane between the trachea and esophagus medially and the carotid sheath laterally to approach the anterior cervical spine. The prevertebral fascia was taken down with a Kittner and the adjacent longus colli muscles were gently reflected with bipolar electrocautery and for safer institution of self retainers. Level was verified with fluoroscopy prior to the initiation of diskectomy and the annulotomy was performed at cervical 3-4 and cervical 4-5. After distraction pins were instituted, disk material was removed in a piecemeal fashion utilizing pituitary rongeur as well as a curette and endplate scraper. A Kerrison rongeur was utilized to dissect the posterior osteophytes at these locations at cervical 3-4 and cervical 4-5. The underlying posterior longitudinal ligament was divided with a Kerrison rongeur and disk material emerged from the epidural space at both cervical 3-4 and cervical 4-5, this was gently teased posteriorly with pituitary rongeur. Decompressions at both locations was verified with direct visualization of the underlying thecal sac and adjacent structures, as well as gentle palpation with a blunt nerve hook. Upon completion of decompression on both locations, trials were instituted to ascertain the appropriate interbody graft. The 7 mm structural allograft was instituted both at cervical 3-4 and cervical 4-5. After placement of these grafts, the traction was removed from distraction pins were also subsequently removed. Hemostasis was achieved from the distraction pin sites with bone wax, and some use of bipolar electrocautery was utilized to obtain additional hemostasis. Once the grafts were in place, diskectomy was completed, anterior instrumentation was instituted. An Amendia 30 mm anterior cervical plate was instituted across cervical 3 down to cervical 5. A 14 mm screws were instituted at cervical 3, 4 and 5 with 2 screws at each locations were secured. These were tightened and secured and locked according to the automotive tire tester specification. Upon completion of this fusion construct, fluoroscopy was utilized to verify appropriate position of the grafts and hardware. Once this was verified at the adequate position, attention was turned to closure. The pristine hemostasis was achieved with some minimal use of bipolar electrocautery as well as FloSeal and thrombin. The wound was generously irrigated with antibiotic irrigation prior to the final closure. The platysma was reapproximated with Vicryl suture in a simple interrupted fashion. Subcutaneous tissues reapproximated with 3-0 Vicryl suture in interrupted inverted fashion. The skin was reapproximated with 4-0 Vicryl suture in a running subcuticular fashion. Mastisol and Steri-Strips were applied and the wound was dressed with Telfa and Tegaderm. At the end the procedure, all needle and sponge counts were correct x 2. Neuro monitoring remained at least at baseline throughout the duration of the procedure. There were no intraprocedural complications apparent. The patient was subsequently extubated in the operating room and taken to recovery in stable condition. RUSH PENA MD DR: HERIBERTO/lexis JOB#: [id number] / [id number]
[2016-06-11] MEDS: ZONISAMIDE 100 MG CAPSULE. PO SCH (21:00)
[2016-06-11] MEDS: MONTELUKAST SODIUM 10 MG TABLET. PO SCH (21:00)
[2016-06-12 03:00] VITALS: BP 94/52
--- NOTE | 2016-06-12 05:29 | PN ---
DATE: 06/11/2016 SUBJECTIVE: The patient is scheduled today for her cervical spine decompression laminectomy for severe stenosis. OBJECTIVE: GENERAL: When I examined her, she looked well and was clearly in no apparent respiratory distress. VITAL SIGNS: Stable. Physical exam is stable. LABORATORY DATA: Her lab works showed a white cell count 9800, hemoglobin 11, hematocrit 35, MCV 77 and platelet count 334. Her chemistries stable as well as her blood sugar. PLAN: She is scheduled today for decompression laminectomy. GLADYS PHILLIP MD DR: JANIS/lexis JOB#: [id number] / [id number]
[2016-06-12 05:49] LABS: BASO % 0 % (0-3); EOS % 0 % (0-3); HEMOGLOBIN 10.9 g/dL (12.0-15.5); LYMPH # 0.9 x10^3/uL (1.0-4.8); LYMPH % 9 % (24-48); MEAN CORPUSCULAR HEMOGLOBIN 24 pg (25-35); MEAN CORPUSCULAR HGB CONC 32 g/dL (31-37); MEAN CORPUSCULAR VOLUME 76 fL (79-100); MONO % 6 % (0-9); NEUT % 85 % (31-73); PLATELET COUNT 331 x10^3/uL (140-400); RED BLOOD COUNT 4.49 x10^6/uL (3.50-5.40); RED CELL DISTRIBUTION WIDTH 15.5 % (11.5-14.5); WHITE BLOOD COUNT 10.4 x10^3/uL (4.0-11.0)
[2016-06-12] MEDS ORDERED: CEFAZOLIN 2GM PREMIX 50 ML IV PRN (06:00)
[2016-06-12 06:17] LABS: ALBUMIN/GLOBULIN RATIO 0.9 (1.0-1.7); CREATININE 0.7 mg/dL (0.6-1.0); GFR 88.6; POTASSIUM 4.1 mmol/L (3.5-5.1); TOTAL BILIRUBIN 0.5 mg/dL (0.2-1.0); TOTAL PROTEIN 6.5 g/dL (6.4-8.2)
[2016-06-12 07:00] VITALS: BP 109/62
[2016-06-12] MEDS: LEVOTHYROXINE 100 MCG TABLET PO SCH (07:00)
[2016-06-12] MEDS: PANTOPRAZOLE 40 MG TABLET.DR. PO SCH (07:30)
[2016-06-12] MEDS: MORPHINE SULFATE 4 MG/ML DISP.SYRIN. IV PRN ×3 (08:19→20:20)
[2016-06-12] MEDS: VIMPAT PO SCH ×2 (09:00→20:29)
[2016-06-12] MEDS: POLYETHYLENE GLYCOL 3350 17 GM PACKET. PO SCH (09:00)
[2016-06-12] MEDS: GABAPENTIN 300 MG CAPSULE. PO SCH ×3 (09:00→20:29)
[2016-06-12] MEDS: LUBIPROSTONE 8 MCG CAPSULE PO SCH ×2 (09:00→20:29)
[2016-06-12] MEDS: ALBUTEROL SULFATE 2.5 MG/3 ML NEBU. NEB PRN (09:33)
--- NOTE | 2016-06-12 10:16 | PDOC ---
PROGRESS NOTES Subjective Subjective She feels some difficulty with throat pain causing swallowing difficulties. Objective Objective Vital Signs Date Time Temp Pulse Resp B/P Pulse Ox O2 Delivery O2 Flow Rate FiO2 06/12/16 09:33 96 Room Air 06/12/16 07:00 98.2 78 20 109/62 98.2 06/11/16 14:58 1.5 Intake and Output 06/12/16 07:00 Intake Total 1170 ml Output Total 370 ml Balance 800 ml Intake Oral 120 ml IV Total 1050 ml Output Urine Total 350 ml Estimated Blood Loss 20 ml # Voids 3 Physical Exam Physical Exam She is feeling better and pleased with results of surgery in that her balance has improved and she can even walk without roller walker and she can feel her toes after long time. Assessment Assessment Problems Medical Problems: (1) Cervical stenosis of spine Status: Acute (2) END STAGE RENAL DISEASE Status: Acute Surgical Problems: (1) Status post cervical discectomy Status: Acute (2) Status post cervical spinal fusion Status: Acute Plan Plan of Half-Way when medically stable. To try chloraseptic spray and cepacol throat lozenges. Comment Review of Relevant I have reviewed the following items ever (where applicable) has been applied. Labs Laboratory Tests Test 06/10/16 11:28 06/10/16 16:25 06/11/16 07:49 06/11/16 11:57 Glucose (Fingerstick) 94mg/dL (70-99) 104mg/dL (70-99) 79mg/dL (70-99) 104mg/dL (70-99) Test 06/11/16 16:55 06/11/16 20:32 06/12/16 05:10 06/12/16 05:20 Glucose (Fingerstick) 142mg/dL (70-99) 127mg/dL (70-99) Sodium Level 143mmol/L (136-145) Potassium Level 4.1mmol/L (3.5-5.1) Chloride Level 109mmol/L (98-107) Carbon Dioxide Level 26mmol/L (21-32) Anion Gap 8 (6-14) Blood Urea Nitrogen 15mg/dL (7-20) Creatinine 0.7mg/dL (0.6-1.0) Estimated GFR (Cockcroft-Gault) 88.6 BUN/Creatinine Ratio 21 (6-20) Glucose Level 116mg/dL (70-99) Calcium Level 9.0mg/dL (8.5-10.1) Total Bilirubin 0.5mg/dL (0.2-1.0) Aspartate Amino Transf (AST/SGOT) 84U/L (15-37) Alanine Aminotransferase (ALT/SGPT) 155U/L (14-59) Alkaline Phosphatase 119U/L (46-116) Total Protein 6.5g/dL (6.4-8.2) Albumin 3.0g/dL (3.4-5.0) Albumin/Globulin Ratio 0.9 (1.0-1.7) White Blood Count 10.4x10^3/uL (4.0-11.0) Red Blood Count 4.49x10^6/uL (3.50-5.40) Hemoglobin 10.9g/dL (12.0-15.5) Hematocrit 34.0% (36.0-47.0) Mean Corpuscular Volume 76fL (79-100) Mean Corpuscular Hemoglobin 24pg (25-35) Mean Corpuscular Hemoglobin Concent 32g/dL (31-37) Red Cell Distribution Width 15.5% (11.5-14.5) Platelet Count 331x10^3/uL (140-400) Neutrophils (%) (Auto) 85% (31-73) Lymphocytes (%) (Auto) 9% (24-48) Monocytes (%) (Auto) 6% (0-9) Eosinophils (%) (Auto) 0% (0-3) Basophils (%) (Auto) 0% (0-3) Neutrophils # (Auto) 8.8x10^3uL (1.8-7.7) Lymphocytes # (Auto) 0.9x10^3/uL (1.0-4.8) Monocytes # (Auto) 0.6x10^3/uL (0.0-1.1) Eosinophils # (Auto) 0.0x10^3/uL (0.0-0.7) Basophils # (Auto) 0.0x10^3/uL (0.0-0.2) Laboratory Tests Test 06/11/16 11:57 06/11/16 16:55 4/7/17 20:32 06/12/16 05:10 Glucose (Fingerstick) 104mg/dL (70-99) 142mg/dL (70-99) 127mg/dL (70-99) Sodium Level 143mmol/L (136-145) Potassium Level 4.1mmol/L (3.5-5.1) Chloride Level 109mmol/L (98-107) Carbon Dioxide Level 26mmol/L (21-32) Anion Gap 8 (6-14) Blood Urea Nitrogen 15mg/dL (7-20) Creatinine 0.7mg/dL (0.6-1.0) Estimated GFR (Cockcroft-Gault) 88.6 BUN/Creatinine Ratio 21 (6-20) Glucose Level 116mg/dL (70-99) Calcium Level 9.0mg/dL (8.5-10.1) Total Bilirubin 0.5mg/dL (0.2-1.0) Aspartate Amino Transf (AST/SGOT) 84U/L (15-37) Alanine Aminotransferase (ALT/SGPT) 155U/L (14-59) Alkaline Phosphatase 119U/L (46-116) Total Protein 6.5g/dL (6.4-8.2) Albumin 3.0g/dL (3.4-5.0) Albumin/Globulin Ratio 0.9 (1.0-1.7) Test 06/12/16 05:20 White Blood Count 10.4x10^3/uL (4.0-11.0) Red Blood Count 4.49x10^6/uL (3.50-5.40) Hemoglobin 10.9g/dL (12.0-15.5) Hematocrit 34.0% (36.0-47.0) Mean Corpuscular Volume 76fL (79-100) Mean Corpuscular Hemoglobin 24pg (25-35) Mean Corpuscular Hemoglobin Concent 32g/dL (31-37) Red Cell Distribution Width 15.5% (11.5-14.5) Platelet Count 331x10^3/uL (140-400) Neutrophils (%) (Auto) 85% (31-73) Lymphocytes (%) (Auto) 9% (24-48) Monocytes (%) (Auto) 6% (0-9) Eosinophils (%) (Auto) 0% (0-3) Basophils (%) (Auto) 0% (0-3) Neutrophils # (Auto) 8.8x10^3uL (1.8-7.7) Lymphocytes # (Auto) 0.9x10^3/uL (1.0-4.8) Monocytes # (Auto) 0.6x10^3/uL (0.0-1.1) Eosinophils # (Auto) 0.0x10^3/uL (0.0-0.7) Basophils # (Auto) 0.0x10^3/uL (0.0-0.2) Medications Current Medications Promethazine HCl (Phenergan) 25 mg PRN Q6HRS PRN PO NAUSEA/VOMITING; Start at 21:15 Zonisamide (Zonegran) 100 mg HS PO ; Start 06/02/16 at 22:00; Stop 06/03/16 at 12:14; Status DC Albuterol Sulfate (Ventolin Neb Soln) 2.5 mg PRN Q4HRS PRN NEB SHORTNESS OF BREATH Last administered on 06/12/16 09:33; Start 06/02/16 at 21:15 Clopidogrel Bisulfate (Plavix) 75 mg DAILY PO Last administered on 06/04/16 11 :19; Start 06/03/16 at 09:00; Stop 06/05/16 at 12:08; Status DC Gabapentin (Neurontin) 300 mg TID PO Last administered on 06/05/16 13:18; Start 06/02/16 at 22:00; Stop 06/05/16 at 13:33; Status DC Levothyroxine Sodium (Synthroid) 100 mcg DAILY07 PO Last administered on 08:37; Start 06/03/16 at 09:00 Montelukast Sodium (Singulair) 10 mg HS PO Last administered on 06/10/16 21:09 ; Start 06/02/16 at 22:00 Lacosamide (Vimpat) 50 mg BID PO ; Start 06/02/16 at 22:00; Status Cancel Lubiprostone (Amitiza) 24 mcg BIDWMEALS PO ; Start 06/03/16 at 08:00; Stop 06/03 at 08:00; Status DC Non-Formulary Medication 1 tab Q6HRS PO ; Start 06/03/16 at 00:00; Stop at 00:00; Status DC Morphine Sulfate (Morphine Ir) 15 mg PRN Q8HRS PRN PO PAIN; Start 06/02/16 at 21:15; Stop 06/11/16 at 11:53; Status DC Ondansetron HCl (Zofran Odt) 4 mg PRN Q6HRS PRN PO NAUSEA; Start 06/02/16 at 22 :00; Status Cancel Lubiprostone (Amitiza) 24 mcg BID PO Last administered on 06/10/16 21:09; Start 06/02/16 at 23:00 Ondansetron HCl (Zofran) 4 mg PRN Q6HRS PRN IV NAUSEA/VOMITING Last administered on 06/02/16 22:30; Start 06/02/16 at 22:15; Stop 06/03/16 at 06:21 ; Status DC Non-Formulary Medication 1 ea BID PO Last administered on 06/10/16 21:00; Start 06/02/16 at 23:00 Morphine Sulfate 4 mg PRN Q4HRS PRN IV SEVERE PAIN Last administered on 08:19; Start 06/03/16 at 02:30 Ondansetron HCl (Zofran) 4 mg PRN Q6HRS PRN IV NAUSEA/VOMITING Last administered on 06/10/16 21:09; Start 06/03/16 at 06:21 Zonisamide (Zonegran) 300 mg QHS PO Last administered on 06/10/16 21:08; Start 06/03/16 at 21:00 Gadobutrol (Gadavist) 8 mmol 1X ONCE IV Last administered on 06/03/16 14:52; Start 06/03/16 at 14:30; Stop 06/03/16 at 14:31; Status DC Baclofen (Lioresal) 10 mg PRN Q6HRS PRN PO MUSCLE SPASMS Last administered on 14:12; Start 06/03/16 at 17:30 Methylprednisolone (Medrol) 8 mg BID PO Last administered on 06/03/16 18:38; Start 06/03/16 at 09:00; Stop 06/03/16 at 21:01; Status DC Methylprednisolone (Medrol) 4 mg BIDPCLD PO Last administered on 06/03/16 18: 37; Start 06/03/16 at 12:30; Stop 06/03/16 at 17:39; Status DC Methylprednisolone (Medrol) 4 mg TIDPC PO Last administered on 06/04/16 11:21 ; Start 06/04/16 at 08:30; Stop 06/04/16 at 17:31; Status DC Methylprednisolone (Medrol) 8 mg QHS PO Last administered on 06/04/16 11:22; Start 06/04/16 at 21:00; Stop 06/04/16 at 21:01; Status DC Methylprednisolone (Medrol) 4 mg QIDAFTMEAL PO Last administered on 06/05/16 08 :52; Start 06/05/16 at 09:00; Stop 06/05/16 at 12:53; Status DC Methylprednisolone (Medrol) 4 mg TID PO ; Start 06/06/16 at 09:00; Stop 06/06/16 at 09:00; Status DC Methylprednisolone (Medrol) 4 mg BID PO Last administered on 06/07/16 07:49; Start 06/07/16 at 09:00; Stop 06/07/16 at 21:01; Status DC Methylprednisolone (Medrol) 4 mg DAILY PO Last administered on 06/08/16 08:58; Start 06/08/16 at 09:00; Stop 06/08/16 at 09:01; Status DC Pantoprazole Sodium (Protonix) 40 mg DAILYAC PO Last administered on 06/03/16 18:35; Start 06/03/16 at 18:00; Stop 06/04/16 at 06:23; Status DC Pantoprazole Sodium (Protonix) 40 mg STK-MED ONCE PO ; Start 06/04/16 at 06:02; Stop 06/04/16 at 06:03; Status DC Pantoprazole Sodium (Protonix) 40 mg DAILYAC PO Last administered on 06/10/16 08:37; Start 06/04/16 at 07:30 Gabapentin (Neurontin) 300 mg STK-MED ONCE PO ; Start 06/05/16 at 08:00; Stop 06/05/16 at 08:01; Status DC Methylprednisolone (Medrol) 12 mg 1X ONCE PO Last administered on 06/05/16 13: 18; Start 06/05/16 at 13:30; Stop 06/05/16 at 13:31; Status DC Gabapentin (Neurontin) 300 mg STK-MED ONCE PO ; Start 06/05/16 at 13:12; Stop 06/05/16 at 13:13; Status DC Gabapentin (Neurontin) 300 mg TID PO Last administered on 06/10/16 21:09; Start 06/05/16 at 14:00 Polyethylene Glycol (miraLAX PACKET) 17 gm 1X ONCE PO Last administered on 06/05 19:30; Start 06/05/16 at 19:30; Stop 06/05/16 at 19:31; Status DC Polyethylene Glycol (miraLAX PACKET) 17 gm DAILY PO Last administered on 08:37; Start 06/06/16 at 09:00 Methylprednisolone (Medrol) 12 mg 1X ONCE PO Last administered on 06/06/16 08: 30; Start 06/06/16 at 09:00; Stop 06/06/16 at 09:01; Status DC Alprazolam (Xanax) 0.25 mg PRN Q8HRS PRN PO ANXIETY / AGITATION Last administered on 06/10/16 01:03; Start 06/07/16 at 16:45 Ondansetron HCl (Zofran) 4 mg PRN Q6HRS PRN IV NAUSEA/VOMITING; Start 06/11/16 at 07:00; Stop 06/12/16 at 06:59; Status DC Fentanyl Citrate (Fentanyl 2ml Vial) 25 mcg PRN Q5MIN PRN IV MILD PAIN; Start 06/11/16 at 07:00; Stop 06/12/16 at 06:59; Status DC Fentanyl Citrate 50 mcg 50 mcg PRN Q5MIN PRN IV MODERATE PAIN Last administered on 06/11/16 12:29; Start 06/11/16 at 07:00; Stop 06/12/16 at 06:59; Status DC Lactated Ringer's (Iv Lactated Ringers) 1,000 ml @ 0 mls/hr Q0M IV Last administered on 06/11/16 08:05; Start 06/11/16 at 07:00; Stop 06/11/16 at 18:59; Status DC Lidocaine HCl 2 ml PRN 1X PRN ID PRIOR TO IV START; Start 06/11/16 at 07:00; Stop 06/12/16 at 06:59; Status DC Prochlorperazine Edisylate 5 mg 5 mg PACU PRN PRN IV NAUSEA, MRX1; Start at 07:00; Stop 06/12/16 at 06:59; Status DC Bacitracin/Sodium Chloride (Bacitracin/Iv Sodium Chloride 0.9% 1000ml Bag) 1, 000 ml @ 1,000 mls/hr 1X PERIOP ONCE IRR Last administered on 06/11/16 09:37 ; Start 06/11/16 at 06:00; Stop 06/11/16 at 06:59; Status DC Bupivacaine HCl/ Epinephrine Bitart (Sensorcain-Mpf Epi 0.5%-[id number]) 30 ml STK -MED ONCE .ROUTE Last administered on 06/11/16 09:37; Start 06/11/16 at 06:43; Stop 06/11/16 at 06:44; Status DC Bupivacaine HCl (Marcaine 0.5%) 50 ml STK-MED ONCE .ROUTE ; Start 06/11/16 at 06: 44; Stop 06/11/16 at 06:45; Status DC Lidocaine/ Epinephrine (Xylocaine 1%-Epi 1:100,000) 20 ml STK-MED ONCE .ROUTE ; Start 06/11/16 at 06:44; Stop 06/11/16 at 06:45; Status DC Thrombin 20,000 unit STK-MED ONCE TP Last administered on 06/11/16 09:37; Start 06/11/16 at 06:45; Stop 06/11/16 at 06:46; Status DC Gelatin 1 each 1 each STK-MED ONCE .ROUTE ; Start 06/11/16 at 06:45; Stop at 06:46; Status DC Propofol (Diprivan) 20 ml @ As Directed STK-MED ONCE IV ; Start 06/11/16 at 07:27 ; Stop 06/11/16 at 07:28; Status DC Lidocaine HCl 100 mg 100 mg STK-MED ONCE .ROUTE ; Start 06/11/16 at 07:27; Stop 06/11/16 at 07:28; Status DC Propofol (Diprivan) 50 ml @ As Directed STK-MED ONCE IV ; Start 06/11/16 at 07:27 ; Stop 06/11/16 at 07:28; Status DC Fentanyl Citrate (Fentanyl 2ml Vial) 100 mcg STK-MED ONCE .ROUTE ; Start at 07:28; Stop 06/11/16 at 07:29; Status DC Remifentanil HCl (Ultiva) 2 mg STK-MED ONCE IV ; Start 06/11/16 at 07:28; Stop at 07:29; Status DC Rocuronium [place] (Zemuron) 50 mg STK-MED ONCE .ROUTE ; Start 06/11/16 at 07:28 ; Stop 06/11/16 at 07:29; Status DC Sodium Chloride (Sodium Chloride) 50 ml STK-MED ONCE IJ ; Start 06/11/16 at 07:28 ; Stop 06/11/16 at 07:29; Status DC Succinylcholine Chloride 200 mg 200 mg STK-MED ONCE .ROUTE ; Start 06/11/16 at 07 :28; Stop 06/11/16 at 07:29; Status DC Cefazolin Sodium/ Dextrose (Ancef 2gm Premix) 50 ml @ As Directed STK-MED ONCE IV ; Start 06/11/16 at 08:28; Stop 06/11/16 at 08:29; Status DC Dexamethasone Sodium Phosphate (Decadron) 20 mg STK-MED ONCE .ROUTE ; Start 06/11 at 08:57; Stop 06/11/16 at 08:58; Status DC Desflurane 60 ml 60 ml STK-MED ONCE IH ; Start 06/11/16 at 08:57; Stop 06/11/16 at 08:58; Status DC Cefazolin Sodium/ Dextrose (Ancef 2gm Premix) 50 ml @ 100 mls/hr 1X PREOP PRN IV Pre Op Last administered on 06/11/16t 09:14; Start 06/12/16 at 06:00; Stop 06/12 at 18:00 Ephedrine Sulfate 50 mg 50 mg STK-MED ONCE IV ; Start 06/11/16 at 09:33; Stop 06/11/16 at 09:34; Status DC Propofol (Diprivan) 50 ml @ As Directed STK-MED ONCE IV ; Start 06/11/16 at 10:06 ; Stop 06/11/16 at 10:07; Status DC Ondansetron HCl (Zofran) 4 mg STK-MED ONCE .ROUTE ; Start 06/11/16 at 10:07; Stop 06/11/16 at 10:08; Status DC Morphine Sulfate (Morphine Oral Solution) 5 mg PRN Q4HRS PRN PO PAIN; Start 06/11/16 at 12:00 Morphine Sulfate (Morphine Oral Solution) 10 mg PRN Q4HRS PRN PO PAIN; Start at 12:00 Morphine Sulfate (Morphine Ir) 15 mg PRN Q4HRS PRN PO PAIN; Start 06/11/16 at 12 :00 Active Scripts Active Reported Zofran (Ondansetron Hcl) 4 Mg Tablet 1 Tab PO Q6HRS Vimpat (Lacosamide) 10 Mg/1 Ml Solution 5 Ml PO BID Montelukast Sodium Tablet (Montelukast Sodium) 10 Mg Tablet 10 Mg PO HS Amitiza (Lubiprostone) 24 Mcg Capsule 1 Cap PO BID Levothyroxine Sodium 100 Mcg Tablet 1 Tab PO DAILY Neurontin (Gabapentin) 300 Mg Capsule 300 Mg PO TID Plavix (Clopidogrel Bisulfate) 75 Mg Tablet 1 Tab PO DAILY Vitals/I & O Vital Sign - Last 24 Hours 06/11/16 06/11/16 06/11/16 06/11/16 11:45 11:45 12:00 12:05 Temp 97.6 97.6 Pulse 97 114 Resp 20 20 18 B/P 146/73 156/75 Pulse Ox 97 100 100 O2 Delivery Mask Simple Mask Simple Mask Simple Mask O2 Flow Rate 10 10 10 10.0 06/11/16 06/11/16 06/11/16 06/11/16 12:15 12:29 12:30 12:31 Temp 97.0 97.0 Pulse 110 102 Resp 18 18 18 B/P 152/65 131/70 Pulse Ox 93 100 95 O2 Delivery Nasal Cannula Nasal Cannula Nasal Cannula Nasal Cannula O2 Flow Rate 3 3.0 3 3.0 06/11/16 06/11/16 06/11/16 06/11/16 12:45 13:06 13:20 13:35 Temp 97.7 97.7 97.7 97.7 97.7 97.7 Pulse 96 108 103 108 Resp 18 20 20 20 B/P 137/67 137/80 134/81 121/82 Pulse Ox 95 94 92 94 O2 Delivery Nasal Cannula Room Air Room Air Room Air O2 Flow Rate 3 06/11/16 06/11/16 06/11/16 06/11/16 13:50 14:04 14:05 14:35 Temp 97.7 97.7 97.7 97.7 97.7 97.7 Pulse 108 100 100 Resp 20 20 20 B/P 126/80 126/72 126/72 Pulse Ox 94 95 95 O2 Delivery Room Air Nasal Cannula Room Air Room Air O2 Flow Rate 1.5 06/11/16 06/11/16 06/11/16 06/11/16 14:58 15:05 15:35 16:35 Temp 97.7 97.7 97.7 97.7 97.7 97.7 Pulse 91 90 104 Resp 20 20 20 B/P 117/77 109/74 101/72 Pulse Ox 95 91 92 O2 Delivery Room Air Room Air Room Air O2 Flow Rate 1.5 06/11/16 06/11/16 06/11/16 06/11/16 19:00 19:42 20:00 20:12 Temp 99.8 99.8 Pulse 89 Resp 18 B/P 105/62 Pulse Ox 90 92 92 O2 Delivery Room Air Nasal Cannula Room Air Room Air 06/11/16 06/12/16 06/12/16 06/12/16 23:00 03:00 07:00 08:19 Temp 98.1 97.3 98.2 98.1 97.3 98.2 Pulse 79 66 78 Resp 20 18 20 B/P 108/68 94/52 109/62 Pulse Ox 92 92 95 O2 Delivery Room Air Room Air Room Air Room Air 06/12/16 09:33 Pulse Ox 96 O2 Delivery Room Air Intake and Output 06/11/16 06/11/16 06/12/16 15:00 23:00 07:00 Intake Total 1050 ml 120 ml Output Total 370 ml 0 ml Balance 680 ml 120 ml MONTY CASTILLO MD Jun 12, 2016 10:16
[2016-06-12] MEDS ORDERED: BENZOCAINE/MENTHOL LOZENGE. PO PRN (10:30)
[2016-06-12] MEDS ORDERED: PHENOL ORAL SPRAY 177ML BOTTLE. PO PRN (10:30)
[2016-06-12 11:00] VITALS: BP 120/64
--- NOTE | 2016-06-12 11:23 | PDOC ---
SUBJECTIVE Subjective Reports significant improvement of sensation in four extremities. Was able to ambulate without walker. Reports difficulty with swallowing due to throat pain. OBJECTIVE Vital Signs Vital Signs Date Time Temp Pulse Resp B/P Pulse Ox O2 Delivery O2 Flow Rate FiO2 06/12/16 11:00 98.6 91 20 120/64 96 Room Air 98.6 06/12/16 09:33 96 Room Air 06/12/16 09:30 Room Air 06/12/16 08:19 Room Air 06/12/16 07:00 98.2 78 20 109/62 95 Room Air 98.2 06/12/16 03:00 97.3 66 18 94/52 92 Room Air 97.3 06/11/16 23:00 98.1 79 20 108/68 92 Room Air 98.1 06/11/16 20:12 92 06/11/16 20:00 Room Air 06/11/16 19:42 92 Nasal Cannula 06/11/16 19:00 99.8 89 18 105/62 90 Room Air 99.8 06/11/16 16:35 97.7 104 20 101/72 92 Room Air 97.7 06/11/16 15:35 97.7 90 20 109/74 91 Room Air 97.7 06/11/16 15:05 97.7 91 20 117/77 95 Room Air 97.7 06/11/16 14:58 1.5 06/11/16 14:35 97.7 100 20 126/72 95 Room Air 97.7 06/11/16 14:05 97.7 100 20 126/72 95 Room Air 97.7 06/11/16 14:04 Nasal Cannula 1.5 06/11/16 13:50 97.7 108 20 126/80 94 Room Air 97.7 06/11/16 13:35 97.7 108 20 121/82 94 Room Air 97.7 06/11/16 13:20 97.7 103 20 134/81 92 Room Air 97.7 06/11/16 13:06 97.7 108 20 137/80 94 Room Air 97.7 06/11/16 12:45 96 18 137/67 95 Nasal Cannula 3 06/11/16 12:31 Nasal Cannula 3.0 06/11/16 12:30 97.0 102 18 131/70 95 Nasal Cannula 3 97.0 06/11/16 12:29 18 100 Nasal Cannula 3.0 06/11/16 12:15 110 18 152/65 93 Nasal Cannula 3 06/11/16 12:05 18 100 Simple Mask 10.0 06/11/16 12:00 114 20 156/75 100 Simple Mask 10 06/11/16 11:45 97.6 97 20 146/73 97 Simple Mask 10 97.6 06/11/16 11:45 Mask 10 I & O Intake and Output 06/12/16 07:00 Intake Total 1170 ml Output Total 370 ml Balance 800 ml Intake Oral 120 ml IV Total 1050 ml Output Urine Total 350 ml Estimated Blood Loss 20 ml # Voids 3 PHYSICAL EXAM Physical Exam AAOx4, voice slightly hoarse but overall with good phonation, LOVELL stable, reports sensation to LT markedly improved in four extremities, dressing c/d/i flat ASSESSMENT/PLAN Assessment/Plan POD 1 C3-5 ACDF -overall appears to be recovering well thus far -to get local throat anesthetic spray for throat pain with swallowing -continue therapies -from NS standpoint, may d/c to appropriate venue when able to swallow/take adequate po and when otherwise meets criteria from medical standpoint -upon d/c will need follow-up 2 weeks with NS/Dr. Pena [phone]; d/c dressing POD 2; keep incision clean and dry; do not soak, scrub, or submerge incision; avoid strenuous activity or lifting more than 10lbs; may use soft collar as needed for comfort, but collar not required -continue to follow Problems: COMMENT Lab Laboratory Tests Test 06/11/16 11:57 06/11/16 16:55 06/11/16 20:32 06/12/16 05:10 Glucose (Fingerstick) 104mg/dL (70-99) 142mg/dL (70-99) 127mg/dL (70-99) Sodium Level 143mmol/L (136-145) Potassium Level 4.1mmol/L (3.5-5.1) Chloride Level 109mmol/L (98-107) Carbon Dioxide Level 26mmol/L (21-32) Anion Gap 8 (6-14) Blood Urea Nitrogen 15mg/dL (7-20) Creatinine 0.7mg/dL (0.6-1.0) Estimated GFR (Cockcroft-Gault) 88.6 BUN/Creatinine Ratio 21 (6-20) Glucose Level 116mg/dL (70-99) Calcium Level 9.0mg/dL (8.5-10.1) Total Bilirubin 0.5mg/dL (0.2-1.0) Aspartate Amino Transf (AST/SGOT) 84U/L (15-37) Alanine Aminotransferase (ALT/SGPT) 155U/L (14-59) Alkaline Phosphatase 119U/L (46-116) Total Protein 6.5g/dL (6.4-8.2) Albumin 3.0g/dL (3.4-5.0) Albumin/Globulin Ratio 0.9 (1.0-1.7) Test 06/12/16 05:20 White Blood Count 10.4x10^3/uL (4.0-11.0) Red Blood Count 4.49x10^6/uL (3.50-5.40) Hemoglobin 10.9g/dL (12.0-15.5) Hematocrit 34.0% (36.0-47.0) Mean Corpuscular Volume 76fL (79-100) Mean Corpuscular Hemoglobin 24pg (25-35) Mean Corpuscular Hemoglobin Concent 32g/dL (31-37) Red Cell Distribution Width 15.5% (11.5-14.5) Platelet Count 331x10^3/uL (140-400) Neutrophils (%) (Auto) 85% (31-73) Lymphocytes (%) (Auto) 9% (24-48) Monocytes (%) (Auto) 6% (0-9) Eosinophils (%) (Auto) 0% (0-3) Basophils (%) (Auto) 0% (0-3) Neutrophils # (Auto) 8.8x10^3uL (1.8-7.7) Lymphocytes # (Auto) 0.9x10^3/uL (1.0-4.8) Monocytes # (Auto) 0.6x10^3/uL (0.0-1.1) Eosinophils # (Auto) 0.0x10^3/uL (0.0-0.7) Basophils # (Auto) 0.0x10^3/uL (0.0-0.2) PADMINI PENA MD Jun 12, 2016 11:23
--- NOTE | 2016-06-12 11:55 | PN ---
DATE: 06/12/2016 SUBJECTIVE: The patient is resting, slightly propped up in bed, in no apparent respiratory distress. She is awake, alert, complaining of severe sore throat and difficulty swallowing; however, she has been up and about. She said that she feels her feet and legs has been up and about, physical therapy. She underwent anterior cervical diskectomy and fusion of cervical C3 and C4 and C4-C5 utilizing Amendia anterior instrumentation with the use of structural allograft fusion substrate at both locations. OBJECTIVE: GENERAL: On examining her, she looked well and was clearly in no apparent respiratory distress, pale, but no jaundice, cyanosis or thyromegaly. No jugular venous distention. No limb edema. VITAL SIGNS: Her heart rate was 78, blood pressure was 109/62, temperature was 98.2, respiratory rate was 20 and her oxygen saturation was 96% on room air. HEAD, EYES, EARS, NOSE AND THROAT: Showed normocephalic, atraumatic. NECK: Supple with a surgical incision, covered with dressing. HEART: Showed normal first and second heart sounds. No gallop, rub or murmur. CHEST: Clear to auscultation. No crepitation or rhonchi. ABDOMEN: Distended, soft, nontender. No guarding or rigidity. No organomegaly. All hernial orifices intact. Bowel sounds normal. NEUROLOGIC: She is awake, alert, responding appropriately. Cranial nerves are intact. She moves extremities without difficulty. Her intake over the last 24 hours was 1920, output was 825. LABORATORY DATA: Her labwork this morning showed a white cell count of 10,400, hemoglobin 11, hematocrit 34, MCV 76 and platelet count of 331,000. Serum sodium was 143, potassium 4.1, chloride 109, bicarbonate 26, anion gap of 8, BUN 15, creatinine 0.7, estimated GFR was 88 mL per minute. Her glucose was 116, calcium of 9. Total bilirubin is normal; however, AST, ALT slightly elevated. Her total protein was 6.5, albumin 3. ASSESSMENT: A 50-year-old male patient with cervical stenosis, myelopathy and paresthesias with cervical dyskinesias. She is status post anterior cervical diskectomy and fusion of cervical C3-C4 and cervical C4-C5 utilizing Amendia anterior instrumentation with the use of structural allograft fusion substrate, both sites. Other medical problems include seizure disorder for which she is on Vimpat and zonisamide. She has also type 2 diabetes that apparently resolved after her gastric sleeve surgery, hypothyroidism, morbid obesity, obstructive sleep apnea, chronic obstructive pulmonary disease/bronchial asthma and bilateral carpal tunnel syndrome. We will start her on Chloraseptic as well as IV fluids in the form of D5 half normal with 20 mEq of potassium chloride at 75 mL per hour. Repeat her lab works tomorrow. GLADYS PHILLIP MD DR: JANIS/lexis JOB#: [id number] / [id number]
[2016-06-12] MEDS: BACLOFEN 10 MG TABLET. PO PRN (12:11)
[2016-06-12] MEDS: POTASSIUM CL 20MEQ D5-0.45NACL 1,000 ML IV SCH ×2 (12:13→20:23)
[2016-06-12 15:00] VITALS: BP 98/61
[2016-06-12 19:00] VITALS: BP 134/79
[2016-06-12] MEDS: MONTELUKAST SODIUM 10 MG TABLET. PO SCH (20:29)
[2016-06-12] MEDS: ZONISAMIDE 100 MG CAPSULE. PO SCH (20:30)
[2016-06-12 23:00] VITALS: BP 114/72
[2016-06-13] MEDS: MORPHINE SULFATE 4 MG/ML DISP.SYRIN. IV PRN ×5 (00:18→20:50)
[2016-06-13] MEDS: ALBUTEROL SULFATE 2.5 MG/3 ML NEBU. NEB PRN ×3 (01:45→21:25)
[2016-06-13 03:00] VITALS: BP 113/63
[2016-06-13 05:09] LABS: BASO % 0 % (0-3); EOS % 1 % (0-3); HEMOGLOBIN 11.1 g/dL (12.0-15.5); LYMPH # 1.7 x10^3/uL (1.0-4.8); LYMPH % 16 % (24-48); MEAN CORPUSCULAR HEMOGLOBIN 24 pg (25-35); MEAN CORPUSCULAR HGB CONC 33 g/dL (31-37); MEAN CORPUSCULAR VOLUME 75 fL (79-100); MONO % 8 % (0-9); NEUT % 75 % (31-73); PLATELET COUNT 321 x10^3/uL (140-400); RED BLOOD COUNT 4.55 x10^6/uL (3.50-5.40); RED CELL DISTRIBUTION WIDTH 15.7 % (11.5-14.5); WHITE BLOOD COUNT 10.3 x10^3/uL (4.0-11.0)
[2016-06-13 05:17] LABS: CALCIUM 8.8 mg/dL (8.5-10.1); CREATININE 0.7 mg/dL (0.6-1.0); GFR 88.6; POTASSIUM 3.6 mmol/L (3.5-5.1)
[2016-06-13] MEDS: LEVOTHYROXINE 100 MCG TABLET PO SCH (05:31)
[2016-06-13] MEDS: PANTOPRAZOLE 40 MG TABLET.DR. PO SCH (05:31)
[2016-06-13 07:00] VITALS: BP 112/51
[2016-06-13] MEDS: POLYETHYLENE GLYCOL 3350 17 GM PACKET. PO SCH (09:00)
[2016-06-13] MEDS: GABAPENTIN 300 MG CAPSULE. PO SCH ×3 (09:00→21:00)
[2016-06-13] MEDS: VIMPAT PO SCH ×2 (09:00→21:00)
[2016-06-13] MEDS: LUBIPROSTONE 8 MCG CAPSULE PO SCH ×2 (09:00→21:00)
[2016-06-13 11:00] VITALS: BP 106/66
--- NOTE | 2016-06-13 11:30 | PDOC ---
SUBJECTIVE Subjective Reports swallowing problem improved after removal of anterior neck dressing. Taking sips of broth without problem if front of examiner. Reports continued improvement with sensation and ambulation. No respiratory distress. OBJECTIVE Vital Signs Vital Signs Date Time Temp Pulse Resp B/P Pulse Ox O2 Delivery O2 Flow Rate FiO2 06/13/16 10:16 Room Air 06/13/16 08:47 Room Air 06/13/16 08:00 Room Air 06/13/16 07:00 98.6 83 20 112/51 94 Room Air 98.6 06/13/16 05:13 20 94 06/13/16 04:43 16 Room Air 06/13/16 03:00 98.3 84 18 113/63 94 Room Air 98.3 06/13/16 01:45 95 Room Air 06/13/16 00:18 20 95 Room Air 06/12/16 23:00 98.1 87 18 114/72 95 Room Air 98.1 06/12/16 20:20 20 96 Room Air 06/12/16 20:09 Room Air 06/12/16 19:00 98.3 75 20 134/79 96 Room Air 98.3 06/12/16 15:00 98.0 80 20 98/61 96 Room Air 98.0 06/12/16 14:38 Room Air I & O Intake and Output 06/13/16 07:00 Intake Total 875 ml Output Total 255 ml Balance 620 ml IV Total 875 ml Output Urine Total 255 ml # Voids 5 PHYSICAL EXAM Physical Exam AAOx4, NAD, voice slightly hoarse but still phonates well, LOVELL stable, sensation markedly improve to LT, incision c/d/i, flat, some prominence of anterior neck, no obvious discrete collection palpated ASSESSMENT/PLAN Assessment/Plan 50F POD 2 s/p ACDF 3-5 -doing well neurologically with sensation and ambulation -order for CT neck soft tissue noted -may need speech/swallow eval if swallow difficulty persists -of note, she reported marked improvement with swallow after simply removing dressing - monitor and advance if able -no evidence of airway problem Problems: COMMENT Lab Laboratory Tests Test 06/12/16 11:46 06/12/16 16:57 06/12/16 21:05 06/13/16 04:25 Glucose (Fingerstick) 87mg/dL (70-99) 97mg/dL (70-99) 100mg/dL (70-99) White Blood Count 10.3x10^3/uL (4.0-11.0) Red Blood Count 4.55x10^6/uL (3.50-5.40) Hemoglobin 11.1g/dL (12.0-15.5) Hematocrit 34.0% (36.0-47.0) Mean Corpuscular Volume 75fL (79-100) Mean Corpuscular Hemoglobin 24pg (25-35) Mean Corpuscular Hemoglobin Concent 33g/dL (31-37) Red Cell Distribution Width 15.7% (11.5-14.5) Platelet Count 321x10^3/uL (140-400) Neutrophils (%) (Auto) 75% (31-73) Lymphocytes (%) (Auto) 16% (24-48) Monocytes (%) (Auto) 8% (0-9) Eosinophils (%) (Auto) 1% (0-3) Basophils (%) (Auto) 0% (0-3) Neutrophils # (Auto) 7.7x10^3uL (1.8-7.7) Lymphocytes # (Auto) 1.7x10^3/uL (1.0-4.8) Monocytes # (Auto) 0.8x10^3/uL (0.0-1.1) Eosinophils # (Auto) 0.1x10^3/uL (0.0-0.7) Basophils # (Auto) 0.0x10^3/uL (0.0-0.2) Sodium Level 142mmol/L (136-145) Potassium Level 3.6mmol/L (3.5-5.1) Chloride Level 107mmol/L (98-107) Carbon Dioxide Level 26mmol/L (21-32) Anion Gap 9 (6-14) Blood Urea Nitrogen 15mg/dL (7-20) Creatinine 0.7mg/dL (0.6-1.0) Estimated GFR (Cockcroft-Gault) 88.6 Glucose Level 105mg/dL (70-99) Calcium Level 8.8mg/dL (8.5-10.1) Test 06/13/16 07:48 Glucose (Fingerstick) 102mg/dL (70-99) PADMINI PENA MD Jun 13, 2016 11:30
[2016-06-13] MEDS: POTASSIUM CL 20MEQ D5-0.45NACL 1,000 ML IV SCH (13:14)
--- NOTE | 2016-06-13 14:52 | RAD ---
CT study of the soft tissues of the neck without contrast History: Soft tissue swelling and difficulty swallowing. Cervical spine surgery 2 days ago. Technique: Noncontrast helical CT scanning of the cervical spine was performed. Without contrast, the sensitivity to detect organ pathology is decreased. PQRS Compliance Statement: One or more of the following individualized dose reduction techniques were utilized for this examination: 1. Automated exposure control 2. Adjustment of the mA and/or kV according to patient size 3. Use of iterative reconstruction technique Comparison: None available. Findings: Anterior cervical fusion is seen from C3 through C5. Posterior fusion is seen from C5 through C7. Laminectomy defect is seen from C5 through C7. Alignment is normal. No discitis or osteolytic process is seen. Dental caries is evident. There is anterior subluxation of the right temporomandibular joint. Mild prevertebral soft tissue swelling is evident related to the surgery. Evaluation for abscess is difficult without intravenous contrast and the streaking artifact from the surgical hardware but no obvious fluid collection or liquefaction is seen. The true and false vocal cords and the epiglottis and aryepiglottic folds and preepiglottic fat space are unremarkable. There is subcutaneous soft tissue edema anteriorly within the neck just to the left of midline with air bubbles which again may be related to the recent cervical surgery. No obvious fluid collection is seen here. No thyroid gland mass is seen. No lung apical infiltrate is seen. No abnormal thickening of the adenoids is seen. The palatine tonsils appear symmetric. IMPRESSION: Anterior and posterior cervical fusion as discussed above. Mild postoperative prevertebral soft tissue swelling and anterior left soft tissue neck swelling is seen. No definite liquefaction or abscess is seen on this study. Dental caries. Anterior subluxation of the right temporomandibular joint.
[2016-06-13 15:00] VITALS: BP 120/79
[2016-06-13 19:00] VITALS: BP 115/78
--- NOTE | 2016-06-13 20:31 | PN ---
DATE: SUBJECTIVE: This patient resting slightly propped up in bed, in no apparent distress. She is complaining of difficulty swallowing and her neck is visibly swollen, although she is able to talk and her oxygen saturation was normal at 94% on room air. OBJECTIVE: GENERAL: On examining her, she looked pale, no jaundice, cyanosis or thyromegaly. No jugular venous distention. No limb edema. VITAL SIGNS: Her heart rate was 83, blood pressure was 112/51, temperature was 98.6, respiratory rate was 20, and oxygen saturation was 94%. HEAD, EYES, EARS, NOSE AND THROAT: Showed normocephalic, atraumatic. NECK: Supple. HEART: Showed normal first and second heart sounds with no gallop, rub or murmur. CHEST: Clear to auscultation. No crepitation or rhonchi. ABDOMEN: Distended, soft, nontender. No guarding or rigidity. No organomegaly. Hernial orifices intact. Bowel sounds normal. NEUROLOGIC: She was awake, alert, responding appropriately. Cranial nerves intact. She moves extremities without difficulty. Her intake was 1170 and output was 370. LABORATORY DATA: This morning showed a serum sodium 142, potassium 3.6, chloride 107, bicarbonate 26, anion gap of 9, ____, creatinine 0.7, estimated GFR was 80 mL per minute. Her glucose 105, calcium was 8.8. Her white cell count was 10,300, hemoglobin 11, hematocrit 34, MCV 75 and platelet count ____. ASSESSMENT: The patient has cervical diskectomy. The patient did complain of difficulty swallowing. She has visible swelling of her neck. PLAN: My plan is to order CT scan of the soft tissue of the neck and decide on further management accordingly. GLADYS PHILLIP MD DR: JANIS/lexis JOB#: [id number] / [id number]
[2016-06-13] MEDS: ZONISAMIDE 100 MG CAPSULE. PO SCH (21:00)
[2016-06-13] MEDS: MONTELUKAST SODIUM 10 MG TABLET. PO SCH (21:00)
[2016-06-13 23:00] VITALS: BP 110/67
[2016-06-14 03:00] VITALS: BP 113/63
[2016-06-14] MEDS: POTASSIUM CL 20MEQ D5-0.45NACL 1,000 ML IV SCH ×2 (03:00→05:58)
[2016-06-14] MEDS: ONDANSETRON PF 4 MG/2 ML VIAL. IV PRN (03:47)
[2016-06-14] MEDS: MORPHINE SULFATE 4 MG/ML DISP.SYRIN. IV PRN ×2 (03:48→13:21)
[2016-06-14] MEDS: LEVOTHYROXINE 100 MCG TABLET PO SCH (05:33)
[2016-06-14 07:00] VITALS: BP 102/57
[2016-06-14] MEDS: PANTOPRAZOLE 40 MG TABLET.DR. PO SCH (07:30)
[2016-06-14] MEDS: VIMPAT PO SCH ×2 (08:51→21:00)
[2016-06-14] MEDS: LUBIPROSTONE 8 MCG CAPSULE PO SCH ×2 (08:52→21:00)
[2016-06-14] MEDS: POLYETHYLENE GLYCOL 3350 17 GM PACKET. PO SCH (08:53)
[2016-06-14] MEDS: GABAPENTIN 300 MG CAPSULE. PO SCH ×3 (08:53→21:00)
[2016-06-14] MEDS: MORPHINE SULFATE 10 MG/5 ML ORAL SOLUTION. PO PRN ×4 (08:57→20:53)
--- NOTE | 2016-06-14 09:36 | PDOC ---
SUBJECTIVE Subjective Feels swallow may be improved today with liquids. Denies acute changes otherwise. Reports continued improved sensation in extremities and improvement of ambulation since surgery. OBJECTIVE Objective CT soft tissue neck with expected post-op changes with mild prevertebral swelling and no significant fluid collections Vital Signs Vital Signs Date Time Temp Pulse Resp B/P Pulse Ox O2 Delivery O2 Flow Rate FiO2 06/14/16 08:57 Room Air 06/14/16 07:40 Room Air 06/14/16 07:00 98.1 88 12 102/57 95 Room Air 98.1 06/14/16 04:18 16 92 Room Air 06/14/16 03:48 15 92 Room Air 1.5 06/14/16 03:00 98.9 81 18 113/63 94 Room Air 98.9 06/13/16 23:00 98.2 82 18 110/67 92 Room Air 98.2 06/13/16 21:27 95 Room Air 06/13/16 20:50 16 95 Room Air 06/13/16 20:00 Room Air 06/13/16 19:00 98.3 87 18 115/78 95 Room Air 98.3 06/13/16 15:43 Room Air 06/13/16 15:00 98.2 83 20 120/79 97 Room Air 98.2 06/13/16 14:36 Room Air 06/13/16 14:16 96 Room Air 06/13/16 13:04 Room Air 06/13/16 11:59 94 Room Air 06/13/16 11:00 98.4 87 20 106/66 96 Room Air 98.4 I & O Intake and Output 06/14/16 07:00 Intake Total 140 ml Balance 140 ml Intake Oral 140 ml # Voids 3 PHYSICAL EXAM Physical Exam AAOx4, NAD, voice slightly hoarse stable, incision c/d/i, LOVELL stable, sensation markedly improved ASSESSMENT/PLAN Assessment/Plan POD 3 ACDF -continues to do well with strength and sensation in extremities, with continued improvement with ambulation -no unexpected surgical findings on imaging -speech therapy swallow eval Problems: COMMENT Lab Laboratory Tests Test 06/13/16 11:55 06/13/16 16:55 06/13/16 20:50 06/14/16 07:37 Glucose (Fingerstick) 88mg/dL (70-99) 105mg/dL (70-99) 104mg/dL (70-99) 87mg/dL (70-99) PADMINI PENA MD Jun 14, 2016 09:36
--- NOTE | 2016-06-14 10:37 | PDOC ---
PROGRESS NOTES Subjective Subjective She feels better with her swallowing this AM. Objective Objective Vital Signs Date Time Temp Pulse Resp B/P Pulse Ox O2 Delivery O2 Flow Rate FiO2 06/14/16 10:01 Room Air 06/14/16 07:00 98.1 88 12 102/57 95 98.1 06/14/16 03:48 1.5 Intake and Output 06/14/16 06:59 Intake Total 140 ml Balance 140 ml Intake Oral 140 ml # Voids 3 Physical Exam Physical Exam She is independent with her mobility at roller walker level. Assessment Assessment Problems Medical Problems: (1) Cervical stenosis of spine Status: Acute (2) END STAGE RENAL DISEASE Status: Acute Surgical Problems: (1) Status post cervical discectomy Status: Acute (2) Status post cervical spinal fusion Status: Acute Plan Plan of Usp when medically stable. Comment Review of Relevant I have reviewed the following items ever (where applicable) has been applied. Labs Laboratory Tests Test 06/12/16 11:46 06/12/16 16:57 06/12/16 21:05 06/13/16 04:25 Glucose (Fingerstick) 87mg/dL (70-99) 97mg/dL (70-99) 100mg/dL (70-99) White Blood Count 10.3x10^3/uL (4.0-11.0) Red Blood Count 4.55x10^6/uL (3.50-5.40) Hemoglobin 11.1g/dL (12.0-15.5) Hematocrit 34.0% (36.0-47.0) Mean Corpuscular Volume 75fL (79-100) Mean Corpuscular Hemoglobin 24pg (25-35) Mean Corpuscular Hemoglobin Concent 33g/dL (31-37) Red Cell Distribution Width 15.7% (11.5-14.5) Platelet Count 321x10^3/uL (140-400) Neutrophils (%) (Auto) 75% (31-73) Lymphocytes (%) (Auto) 16% (24-48) Monocytes (%) (Auto) 8% (0-9) Eosinophils (%) (Auto) 1% (0-3) Basophils (%) (Auto) 0% (0-3) Neutrophils # (Auto) 7.7x10^3uL (1.8-7.7) Lymphocytes # (Auto) 1.7x10^3/uL (1.0-4.8) Monocytes # (Auto) 0.8x10^3/uL (0.0-1.1) Eosinophils # (Auto) 0.1x10^3/uL (0.0-0.7) Basophils # (Auto) 0.0x10^3/uL (0.0-0.2) Sodium Level 142mmol/L (136-145) Potassium Level 3.6mmol/L (3.5-5.1) Chloride Level 107mmol/L (98-107) Carbon Dioxide Level 26mmol/L (21-32) Anion Gap 9 (6-14) Blood Urea Nitrogen 15mg/dL (7-20) Creatinine 0.7mg/dL (0.6-1.0) Estimated GFR (Cockcroft-Gault) 88.6 Glucose Level 105mg/dL (70-99) Calcium Level 8.8mg/dL (8.5-10.1) Test 06/13/16 07:48 06/13/16 11:55 06/13/16 16:55 06/13/16 20:50 Glucose (Fingerstick) 102mg/dL (70-99) 88mg/dL (70-99) 105mg/dL (70-99) 104mg/dL (70-99) Test 06/14/16 07:37 Glucose (Fingerstick) 87mg/dL (70-99) Laboratory Tests Test 06/13/16 11:55 06/13/16 16:55 06/13/16 20:50 06/14/16 07:37 Glucose (Fingerstick) 88mg/dL (70-99) 105mg/dL (70-99) 104mg/dL (70-99) 87mg/dL (70-99) Medications Current Medications Promethazine HCl (Phenergan) 25 mg PRN Q6HRS PRN PO NAUSEA/VOMITING; Start at 21:15 Zonisamide (Zonegran) 100 mg HS PO ; Start 06/02/16 at 22:00; Stop 06/03/16 at 12:14; Status DC Albuterol Sulfate (Ventolin Neb Soln) 2.5 mg PRN Q4HRS PRN NEB SHORTNESS OF BREATH Last administered on 06/13/16 21:25; Start 06/02/16 at 21:15 Clopidogrel Bisulfate (Plavix) 75 mg DAILY PO Last administered on 06/04/16 11 :19; Start 06/03/16 at 09:00; Stop 06/05/16 at 12:08; Status DC Gabapentin (Neurontin) 300 mg TID PO Last administered on 06/05/16 13:18; Start 06/02/16 at 22:00; Stop 06/05/16 at 13:33; Status DC Levothyroxine Sodium (Synthroid) 100 mcg DAILY07 PO Last administered on 08:37; Start 06/03/16 at 09:00 Montelukast Sodium (Singulair) 10 mg HS PO Last administered on 06/10/16 21:09 ; Start 06/02/16 at 22:00 Lacosamide (Vimpat) 50 mg BID PO ; Start 06/02/16 at 22:00; Status Cancel Lubiprostone (Amitiza) 24 mcg BIDWMEALS PO ; Start 06/03/16 at 08:00; Stop 06/03 at 08:00; Status DC Non-Formulary Medication 1 tab Q6HRS PO ; Start 06/03/16 at 00:00; Stop at 00:00; Status DC Morphine Sulfate (Morphine Ir) 15 mg PRN Q8HRS PRN PO PAIN; Start 06/02/16 at 21:15; Stop 06/11/16 at 11:53; Status DC Ondansetron HCl (Zofran Odt) 4 mg PRN Q6HRS PRN PO NAUSEA; Start 06/02/16 at 22 :00; Status Cancel Lubiprostone (Amitiza) 24 mcg BID PO Last administered on 06/10/16 21:09; Start 06/02/16 at 23:00 Ondansetron HCl (Zofran) 4 mg PRN Q6HRS PRN IV NAUSEA/VOMITING Last administered on 06/02/16 22:30; Start 06/02/16 at 22:15; Stop 06/03/16 at 06:21 ; Status DC Non-Formulary Medication 1 ea BID PO Last administered on 06/10/16 21:00; Start 06/02/16 at 23:00 Morphine Sulfate 4 mg PRN Q4HRS PRN IV SEVERE PAIN Last administered on 03:48; Start 06/03/16 at 02:30 Ondansetron HCl (Zofran) 4 mg PRN Q6HRS PRN IV NAUSEA/VOMITING Last administered on 06/14/16 03:47; Start 06/03/16 at 06:21 Zonisamide (Zonegran) 300 mg QHS PO Last administered on 06/10/16 21:08; Start 06/03/16 at 21:00 Gadobutrol (Gadavist) 8 mmol 1X ONCE IV Last administered on 06/03/16 14:52; Start 06/03/16 at 14:30; Stop 06/03/16 at 14:31; Status DC Baclofen (Lioresal) 10 mg PRN Q6HRS PRN PO MUSCLE SPASMS Last administered on 12:11; Start 06/03/16 at 17:30 Methylprednisolone (Medrol) 8 mg BID PO Last administered on 06/03/16 18:38; Start 06/03/16 at 09:00; Stop 06/03/16 at 21:01; Status DC Methylprednisolone (Medrol) 4 mg BIDPCLD PO Last administered on 06/03/16 18: 37; Start 06/03/16 at 12:30; Stop 06/03/16 at 17:39; Status DC Methylprednisolone (Medrol) 4 mg TIDPC PO Last administered on 06/04/16 11:21 ; Start 06/04/16 at 08:30; Stop 06/04/16 at 17:31; Status DC Methylprednisolone (Medrol) 8 mg QHS PO Last administered on 06/04/16 11:22; Start 06/04/16 at 21:00; Stop 06/04/16 at 21:01; Status DC Methylprednisolone (Medrol) 4 mg QIDAFTMEAL PO Last administered on 06/05/16 08 :52; Start 06/05/16 at 09:00; Stop 06/05/16 at 12:53; Status DC Methylprednisolone (Medrol) 4 mg TID PO ; Start 06/06/16 at 09:00; Stop 06/06/16 at 09:00; Status DC Methylprednisolone (Medrol) 4 mg BID PO Last administered on 06/07/16 07:49; Start 06/07/16 at 09:00; Stop 06/07/16 at 21:01; Status DC Methylprednisolone (Medrol) 4 mg DAILY PO Last administered on 06/08/16 08:58; Start 06/08/16 at 09:00; Stop 06/08/16 at 09:01; Status DC Pantoprazole Sodium (Protonix) 40 mg DAILYAC PO Last administered on 06/03/16 18:35; Start 06/03/16 at 18:00; Stop 06/04/16 at 06:23; Status DC Pantoprazole Sodium (Protonix) 40 mg STK-MED ONCE PO ; Start 06/04/16 at 06:02; Stop 06/04/16 at 06:03; Status DC Pantoprazole Sodium (Protonix) 40 mg DAILYAC PO Last administered on 06/10/16 08:37; Start 06/04/16 at 07:30 Gabapentin (Neurontin) 300 mg STK-MED ONCE PO ; Start 06/05/16 at 08:00; Stop 06/05/16 at 08:01; Status DC Methylprednisolone (Medrol) 12 mg 1X ONCE PO Last administered on 06/05/16 13: 18; Start 06/05/16 at 13:30; Stop 06/05/16 at 13:31; Status DC Gabapentin (Neurontin) 300 mg STK-MED ONCE PO ; Start 06/05/16 at 13:12; Stop 06/05/16 at 13:13; Status DC Gabapentin (Neurontin) 300 mg TID PO Last administered on 06/10/16 21:09; Start 06/05/16 at 14:00 Polyethylene Glycol (miraLAX PACKET) 17 gm 1X ONCE PO Last administered on 06/05 19:30; Start 06/05/16 at 19:30; Stop 06/05/16 at 19:31; Status DC Polyethylene Glycol (miraLAX PACKET) 17 gm DAILY PO Last administered on 08:53; Start 06/06/16 at 09:00 Methylprednisolone (Medrol) 12 mg 1X ONCE PO Last administered on 06/06/16 08: 30; Start 06/06/16 at 09:00; Stop 06/06/16 at 09:01; Status DC Alprazolam (Xanax) 0.25 mg PRN Q8HRS PRN PO ANXIETY / AGITATION Last administered on 06/10/16 01:03; Start 06/07/16 at 16:45 Ondansetron HCl (Zofran) 4 mg PRN Q6HRS PRN IV NAUSEA/VOMITING; Start 06/11/16 at 07:00; Stop 06/12/16 at 06:59; Status DC Fentanyl Citrate (Fentanyl 2ml Vial) 25 mcg PRN Q5MIN PRN IV MILD PAIN; Start 06/11/16 at 07:00; Stop 06/12/16 at 06:59; Status DC Fentanyl Citrate 50 mcg 50 mcg PRN Q5MIN PRN IV MODERATE PAIN Last administered on 06/11/16 12:29; Start 06/11/16 at 07:00; Stop 06/12/16 at 06:59; Status DC Lactated Ringer's (Iv Lactated Ringers) 1,000 ml @ 0 mls/hr Q0M IV Last administered on 06/11/16 08:05; Start 06/11/16 at 07:00; Stop 06/11/16 at 18:59; Status DC Lidocaine HCl 2 ml PRN 1X PRN ID PRIOR TO IV START; Start 06/11/16 at 07:00; Stop 06/12/16 at 06:59; Status DC Prochlorperazine Edisylate 5 mg 5 mg PACU PRN PRN IV NAUSEA, MRX1; Start at 07:00; Stop 06/12/16 at 06:59; Status DC Bacitracin/Sodium Chloride (Bacitracin/Iv Sodium Chloride 0.9% 1000ml Bag) 1, 000 ml @ 1,000 mls/hr 1X PERIOP ONCE IRR Last administered on 06/11/16 09:37 ; Start 06/11/16 at 06:00; Stop 06/11/16 at 06:59; Status DC Bupivacaine HCl/ Epinephrine Bitart (Sensorcain-Mpf Epi 0.5%-1:740219) 30 ml STK -MED ONCE .ROUTE Last administered on 06/11/16 09:37; Start 06/11/16 at 06:43; Stop 06/11/16 at 06:44; Status DC Bupivacaine HCl (Marcaine 0.5%) 50 ml STK-MED ONCE .ROUTE ; Start 06/11/16 at 06: 44; Stop 06/11/16 at 06:45; Status DC Lidocaine/ Epinephrine (Xylocaine 1%-Epi 1:100,000) 20 ml STK-MED ONCE .ROUTE ; Start 06/11/16 at 06:44; Stop 06/11/16 at 06:45; Status DC Thrombin 20,000 unit STK-MED ONCE TP Last administered on 06/11/16t 09:37; Start 06/11/16 at 06:45; Stop 06/11/16 at 06:46; Status DC Gelatin 1 each 1 each STK-MED ONCE .ROUTE ; Start 06/11/16 at 06:45; Stop at 06:46; Status DC Propofol (Diprivan) 20 ml @ As Directed STK-MED ONCE IV ; Start 06/11/16 at 07:27 ; Stop 06/11/16 at 07:28; Status DC Lidocaine HCl 100 mg 100 mg STK-MED ONCE .ROUTE ; Start 06/11/16 at 07:27; Stop 06/11/16 at 07:28; Status DC Propofol (Diprivan) 50 ml @ As Directed STK-MED ONCE IV ; Start 06/11/16 at 07:27 ; Stop 06/11/16 at 07:28; Status DC Fentanyl Citrate (Fentanyl 2ml Vial) 100 mcg STK-MED ONCE .ROUTE ; Start at 07:28; Stop 06/11/16 at 07:29; Status DC Remifentanil HCl (Ultiva) 2 mg STK-MED ONCE IV ; Start 06/11/16 at 07:28; Stop at 07:29; Status DC Rocuronium Hephzibah (Zemuron) 50 mg STK-MED ONCE .ROUTE ; Start 06/11/16 at 07:28 ; Stop 06/11/16 at 07:29; Status DC Sodium Chloride (Sodium Chloride) 50 ml STK-MED ONCE IJ ; Start 06/11/16 at 07:28 ; Stop 06/11/16 at 07:29; Status DC Succinylcholine Chloride 200 mg 200 mg STK-MED ONCE .ROUTE ; Start 06/11/16 at 07 :28; Stop 06/11/16 at 07:29; Status DC Cefazolin Sodium/ Dextrose (Ancef 2gm Premix) 50 ml @ As Directed STK-MED ONCE IV ; Start 06/11/16 at 08:28; Stop 06/11/16 at 08:29; Status DC Dexamethasone Sodium Phosphate (Decadron) 20 mg STK-MED ONCE .ROUTE ; Start 06/11 at 08:57; Stop 06/11/16 at 08:58; Status DC Desflurane 60 ml 60 ml STK-MED ONCE IH ; Start 06/11/16 at 08:57; Stop 06/11/16 at 08:58; Status DC Cefazolin Sodium/ Dextrose (Ancef 2gm Premix) 50 ml @ 100 mls/hr 1X PREOP PRN IV Pre Op Last administered on 06/11/16 09:14; Start 06/12/16 at 06:00; Stop 06/12 at 18:00; Status DC Ephedrine Sulfate 50 mg 50 mg STK-MED ONCE IV ; Start 06/11/16 at 09:33; Stop 06/11/16 at 09:34; Status DC Propofol (Diprivan) 50 ml @ As Directed STK-MED ONCE IV ; Start 06/11/16 at 10:06 ; Stop 06/11/16 at 10:07; Status DC Ondansetron HCl (Zofran) 4 mg STK-MED ONCE .ROUTE ; Start 06/11/16 at 10:07; Stop 06/11/16 at 10:08; Status DC Morphine Sulfate (Morphine Oral Solution) 5 mg PRN Q4HRS PRN PO PAIN Last administered on 06/14/16 08:57; Start 06/11/16 at 12:00 Morphine Sulfate (Morphine Oral Solution) 10 mg PRN Q4HRS PRN PO PAIN Last administered on 06/13/16 13:04; Start 06/11/16 at 12:00 Morphine Sulfate (Morphine Ir) 15 mg PRN Q4HRS PRN PO PAIN; Start 06/11/16 at 12 :00 Throat Lozenges (Chloraseptic) 1 spray PRN Q2HR PRN PO SORE THROAT; Start at 10:30 Throat Lozenges 1 hung 1 hung PRN Q2HRS PRN PO SORE THROAT; Start 06/12/16 at 10: 30 Potassium Chloride/Dextrose/ Sod Cl (KCl 20 Meq In D5W-1/2 NS) 1,000 ml @ 75 mls/hr [id number] IV Last administered on 06/14/16t 05:58; Start 06/12/16 at 11:00 Active Scripts Active Reported Zofran (Ondansetron Hcl) 4 Mg Tablet 1 Tab PO Q6HRS Vimpat (Lacosamide) 10 Mg/1 Ml Solution 5 Ml PO BID Montelukast Sodium Tablet (Montelukast Sodium) 10 Mg Tablet 10 Mg PO HS Amitiza (Lubiprostone) 24 Mcg Capsule 1 Cap PO BID Levothyroxine Sodium 100 Mcg Tablet 1 Tab PO DAILY Neurontin (Gabapentin) 300 Mg Capsule 300 Mg PO TID Plavix (Clopidogrel Bisulfate) 75 Mg Tablet 1 Tab PO DAILY Vitals/I & O Vital Sign - Last 24 Hours 06/13/16 06/13/16 06/13/16 06/13/16 11:00 11:59 13:04 14:16 Temp 98.4 98.4 Pulse 87 Resp 20 B/P 106/66 Pulse Ox 96 94 96 O2 Delivery Room Air Room Air Room Air Room Air 06/13/16 06/13/16 06/13/16 06/13/16 14:36 15:00 15:43 19:00 Temp 98.2 98.3 98.2 98.3 Pulse 83 87 Resp 20 18 B/P 120/79 115/78 Pulse Ox 97 95 O2 Delivery Room Air Room Air Room Air Room Air 06/13/16 06/13/16 06/13/16 06/13/16 20:00 20:50 21:27 23:00 Temp 98.2 98.2 Pulse 82 Resp 16 18 B/P 110/67 Pulse Ox 95 95 92 O2 Delivery Room Air Room Air Room Air Room Air 06/14/16 06/14/16 06/14/16 06/14/16 03:00 03:48 04:18 07:00 Temp 98.9 98.1 98.9 98.1 Pulse 81 88 Resp 18 15 16 12 B/P 113/63 102/57 Pulse Ox 94 92 92 95 O2 Delivery Room Air Room Air Room Air Room Air O2 Flow Rate 1.5 06/14/16 06/14/16 06/14/16 07:40 08:57 10:01 O2 Delivery Room Air Room Air Room Air Intake and Output 06/13/16 06/13/16 06/14/16 14:59 22:59 06:59 Intake Total 20 ml 120 ml Balance 20 ml 120 ml MONTY CASTILLO MD Jun 14, 2016 10:37
[2016-06-14 11:00] VITALS: BP 127/78
[2016-06-14 15:00] VITALS: BP 126/78
--- NOTE | 2016-06-14 15:13 | PATHOLOGY ---
PATHOLOGY REPORT * * * * * * * * FINAL DIAGNOSIS: Fibrocartilaginous tissue, cervical disc: - Degenerative changes. COMMENT: There is no evidence of an acute inflammatory process or malignancy. (JPM:csd; d/t: 06/14/2016) REPORT ELECTRONICALLY SIGNED BY: Bj Figueroa M.D. DATE/TIME: 06/14/2016 15:12 * * * * * * * * GROSS PATHOLOGY: Received in formalin labeled "Kamille Gutierrez, cervical disc" are multiple segments of jacob, rubbery, and gritty tissue. The specimen measures 4.2 x 2.6 x 1.1 cm in aggregate dimensions. The tissue is submitted representatively in cassette A1, following decalcification. (CAA:JPM:csd; 06/11/2016) INITIAL CPT CODE(S): A; 58759, 30149 Professional services performed [place] [facility] [place] [address] Technical services performed by [facility] at [address] [place] [address], [facility] [address], [place] [address]. SPECIMEN(S) RECEIVED: A.Cervical disc CLINICAL HISTORY: Cervical stenosis PATIENT: KAMILLE GUTIERREZ /AGE: 507/31/1965 (Age: 50) PATIENT #: [id number] ALT CASE #: SPECIMEN COLLECTION DATE: 06/11/2016 SPECIMEN RECEIVED DATE: 06/11/2016 [facility] - [address] [place] [address] - PHONE: [phone] * * * END OF REPORT * * *
[2016-06-14 19:15] VITALS: BP 116/64
[2016-06-14] MEDS: MONTELUKAST SODIUM 10 MG TABLET. PO SCH (21:00)
[2016-06-14] MEDS: ZONISAMIDE 100 MG CAPSULE. PO SCH (21:00)
[2016-06-14 23:03] VITALS: BP 109/58
[2016-06-15] MEDS: MORPHINE SULFATE 4 MG/ML DISP.SYRIN. IV PRN (01:35)
[2016-06-15 03:06] VITALS: BP 116/60
[2016-06-15] MEDS: POTASSIUM CL 20MEQ D5-0.45NACL 1,000 ML IV SCH (04:01)
[2016-06-15 04:14] LABS: HEMATOCRIT 35.1 % (36.0-47.0); HEMOGLOBIN 11.1 g/dL (12.0-15.5); RED BLOOD COUNT 4.63 x10^6/uL (3.50-5.40); RED CELL DISTRIBUTION WIDTH 15.9 % (11.5-14.5); WHITE BLOOD COUNT 9.2 x10^3/uL (4.0-11.0)
[2016-06-15 04:25] LABS: ALBUMIN 2.9 g/dL (3.4-5.0); ALBUMIN/GLOBULIN RATIO 0.8 (1.0-1.7); CALCIUM 8.5 mg/dL (8.5-10.1); CREATININE 0.7 mg/dL (0.6-1.0); GFR 88.6; POTASSIUM 3.8 mmol/L (3.5-5.1); TOTAL BILIRUBIN 0.5 mg/dL (0.2-1.0); TOTAL PROTEIN 6.6 g/dL (6.4-8.2)
[2016-06-15] MEDS: ALBUTEROL SULFATE 2.5 MG/3 ML NEBU. NEB PRN ×2 (05:12→10:08)
[2016-06-15 07:00] VITALS: BP 123/68
[2016-06-15] MEDS: LEVOTHYROXINE 100 MCG TABLET PO SCH (07:00)
[2016-06-15] MEDS: PANTOPRAZOLE 40 MG TABLET.DR. PO SCH (07:30)
[2016-06-15] MEDS: VIMPAT PO SCH (08:08)
[2016-06-15] MEDS: POLYETHYLENE GLYCOL 3350 17 GM PACKET. PO SCH (08:09)
[2016-06-15] MEDS: MORPHINE SULFATE 10 MG/5 ML ORAL SOLUTION. PO PRN (08:09)
[2016-06-15] MEDS: LUBIPROSTONE 8 MCG CAPSULE PO SCH (08:09)
[2016-06-15] MEDS: GABAPENTIN 300 MG CAPSULE. PO SCH (08:10)
--- NOTE | 2016-06-15 08:49 | PN ---
DATE: 06/14/2016 SUBJECTIVE: The patient is sitting, propped up in her bed, in no apparent distress. She is awake, alert, states that her pain in the neck and dysphagia is much better today. She is able to swallow liquid morphine and sips on her tea without difficulty, although she has yet tried solid food. She denied any other complaint. PHYSICAL EXAMINATION: GENERAL: When I examined her, she looked pale, but no jaundice, cyanosis or thyromegaly. No jugular venous distention. No limb edema. VITAL SIGNS: Her heart rate was 88, blood pressure was 102/57, temperature was 98.1, respiratory rate was 16 and oxygen saturation was 95% on room air. HEAD, EYES, EARS, NOSE AND THROAT: Showed normocephalic, atraumatic. NECK: Supple with a surgical incision covered with dressing. The soft tissue swelling is much less than yesterday. HEART: Showed normal first and second heart sounds. No gallop, rub or murmur. CHEST: Clear to auscultation. No crepitation or rhonchi. ABDOMEN: Distended, soft, nontender. NEUROLOGIC: She is awake, alert, responding appropriately. Cranial nerves intact. She moves extremities without difficulty. She ambulates with a walker. Her intake over the last 24 hours was 875, output was ____. LABORATORY DATA: Her blood sugar seems to be well controlled as of yesterday, her white cell count was 10,300, hemoglobin 11, hematocrit 34, MCV 75 and platelet count 321,000. Her chemistry showed a serum sodium of 142, potassium 3.6, chloride 107, bicarbonate 26, anion gap of 9, BUN 15, creatinine 0.7, estimated GFR was 88 mL per minute. Her glucose was 105 and calcium was 8.8. 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 The patient is doing much better. The patient continued to have dysphagia, soft tissue swelling, which is subsiding. She is now able to swallow liquid diet. We have consulted the speech therapist and will continue obviously with physical and occupational therapy. GLADYS PHILLIP MD DR: JANIS/lexis JOB#: [id number] / [id number]
[2016-06-15] MEDS: ONDANSETRON PF 4 MG/2 ML VIAL. IV PRN (09:03)
[2016-06-15] MEDS ORDERED: ALPR0.254 PO (10:06)
--- NOTE | 2016-06-15 10:16 | PDOC ---
PROGRESS NOTES Subjective Subjective No new complaints. Objective Objective Vital Signs Date Time Temp Pulse Resp B/P Pulse Ox O2 Delivery O2 Flow Rate FiO2 06/15/16 10:08 96 Room Air 06/15/16 07:00 98.0 83 14 123/68 98.0 06/14/16 03:48 1.5 Intake and Output 06/15/16 07:00 Intake Total 60 ml Balance 60 ml Intake Oral 60 ml # Voids 3 # Bowel Movements 3 Physical Exam Physical Exam She is doing well with her mobility at roller walker level with lumbar corset. Assessment Assessment Problems Medical Problems: (1) Cervical cord compression with myelopathy Status: Acute (2) Cervical stenosis of spine Status: Acute (3) END STAGE RENAL DISEASE Status: Acute (4) Seizure disorder Status: Acute Surgical Problems: (1) Status post cervical discectomy Status: Acute (2) Status post cervical spinal fusion Status: Acute Plan Plan of Custodial with outpatient follow up. Comment Review of Relevant I have reviewed the following items ever (where applicable) has been applied. Labs Laboratory Tests Test 06/13/16 11:55 06/13/16 16:55 06/13/16 20:50 06/14/16 07:37 Glucose (Fingerstick) 88mg/dL (70-99) 105mg/dL (70-99) 104mg/dL (70-99) 87mg/dL (70-99) Test 06/14/16 11:34 06/14/16 16:38 06/14/16 20:45 06/15/16 03:45 Glucose (Fingerstick) 82mg/dL (70-99) 122mg/dL (70-99) 94mg/dL (70-99) White Blood Count 9.2x10^3/uL (4.0-11.0) Red Blood Count 4.63x10^6/uL (3.50-5.40) Hemoglobin 11.1g/dL (12.0-15.5) Hematocrit 35.1% (36.0-47.0) Mean Corpuscular Volume 76fL (79-100) Mean Corpuscular Hemoglobin 24pg (25-35) Mean Corpuscular Hemoglobin Concent 32g/dL (31-37) Red Cell Distribution Width 15.9% (11.5-14.5) Platelet Count 314x10^3/uL (140-400) Sodium Level 141mmol/L (136-145) Potassium Level 3.8mmol/L (3.5-5.1) Chloride Level 107mmol/L (98-107) Carbon Dioxide Level 27mmol/L (21-32) Anion Gap 7 (6-14) Blood Urea Nitrogen 10mg/dL (7-20) Creatinine 0.7mg/dL (0.6-1.0) Estimated GFR (Cockcroft-Gault) 88.6 BUN/Creatinine Ratio 14 (6-20) Glucose Level 96mg/dL (70-99) Calcium Level 8.5mg/dL (8.5-10.1) Total Bilirubin 0.5mg/dL (0.2-1.0) Aspartate Amino Transf (AST/SGOT) 14U/L (15-37) Alanine Aminotransferase (ALT/SGPT) 47U/L (14-59) Alkaline Phosphatase 106U/L (46-116) Total Protein 6.6g/dL (6.4-8.2) Albumin 2.9g/dL (3.4-5.0) Albumin/Globulin Ratio 0.8 (1.0-1.7) Test 06/15/16 07:40 Glucose (Fingerstick) 92mg/dL (70-99) Laboratory Tests Test 06/14/16 11:34 06/14/16 16:38 06/14/16 20:45 06/15/16 03:45 Glucose (Fingerstick) 82mg/dL (70-99) 122mg/dL (70-99) 94mg/dL (70-99) White Blood Count 9.2x10^3/uL (4.0-11.0) Red Blood Count 4.63x10^6/uL (3.50-5.40) Hemoglobin 11.1g/dL (12.0-15.5) Hematocrit 35.1% (36.0-47.0) Mean Corpuscular Volume 76fL (79-100) Mean Corpuscular Hemoglobin 24pg (25-35) Mean Corpuscular Hemoglobin Concent 32g/dL (31-37) Red Cell Distribution Width 15.9% (11.5-14.5) Platelet Count 314x10^3/uL (140-400) Sodium Level 141mmol/L (136-145) Potassium Level 3.8mmol/L (3.5-5.1) Chloride Level 107mmol/L (98-107) Carbon Dioxide Level 27mmol/L (21-32) Anion Gap 7 (6-14) Blood Urea Nitrogen 10mg/dL (7-20) Creatinine 0.7mg/dL (0.6-1.0) Estimated GFR (Cockcroft-Gault) 88.6 BUN/Creatinine Ratio 14 (6-20) Glucose Level 96mg/dL (70-99) Calcium Level 8.5mg/dL (8.5-10.1) Total Bilirubin 0.5mg/dL (0.2-1.0) Aspartate Amino Transf (AST/SGOT) 14U/L (15-37) Alanine Aminotransferase (ALT/SGPT) 47U/L (14-59) Alkaline Phosphatase 106U/L (46-116) Total Protein 6.6g/dL (6.4-8.2) Albumin 2.9g/dL (3.4-5.0) Albumin/Globulin Ratio 0.8 (1.0-1.7) Test 06/15/16 07:40 Glucose (Fingerstick) 92mg/dL (70-99) Medications Current Medications Promethazine HCl (Phenergan) 25 mg PRN Q6HRS PRN PO NAUSEA/VOMITING; Start at 21:15 Zonisamide (Zonegran) 100 mg HS PO ; Start 06/02/16 at 22:00; Stop 06/03/16 at 12:14; Status DC Albuterol Sulfate (Ventolin Neb Soln) 2.5 mg PRN Q4HRS PRN NEB SHORTNESS OF BREATH Last administered on 06/15/16 10:08; Start 06/02/16 at 21:15 Clopidogrel Bisulfate (Plavix) 75 mg DAILY PO Last administered on 06/04/16 11 :19; Start 06/03/16 at 09:00; Stop 06/05/16 at 12:08; Status DC Gabapentin (Neurontin) 300 mg TID PO Last administered on 06/05/16 13:18; Start 06/02/16 at 22:00; Stop 06/05/16 at 13:33; Status DC Levothyroxine Sodium (Synthroid) 100 mcg DAILY07 PO Last administered on 08:37; Start 06/03/16 at 09:00 Montelukast Sodium (Singulair) 10 mg HS PO Last administered on 06/10/16 21:09 ; Start 06/02/16 at 22:00 Lacosamide (Vimpat) 50 mg BID PO ; Start 06/02/16 at 22:00; Status Cancel Lubiprostone (Amitiza) 24 mcg BIDWMEALS PO ; Start 06/03/16 at 08:00; Stop 06/03 at 08:00; Status DC Non-Formulary Medication 1 tab Q6HRS PO ; Start 06/03/16 at 00:00; Stop at 00:00; Status DC Morphine Sulfate (Morphine Ir) 15 mg PRN Q8HRS PRN PO PAIN; Start 06/02/16 at 21:15; Stop 06/11/16 at 11:53; Status DC Ondansetron HCl (Zofran Odt) 4 mg PRN Q6HRS PRN PO NAUSEA; Start 06/02/16 at 22 :00; Status Cancel Lubiprostone (Amitiza) 24 mcg BID PO Last administered on 06/10/16 21:09; Start 06/02/16 at 23:00 Ondansetron HCl (Zofran) 4 mg PRN Q6HRS PRN IV NAUSEA/VOMITING Last administered on 06/02/16 22:30; Start 06/02/16 at 22:15; Stop 06/03/16 at 06:21 ; Status DC Non-Formulary Medication 1 ea BID PO Last administered on 06/15/16 08:08; Start 06/02/16 at 23:00 Morphine Sulfate 4 mg PRN Q4HRS PRN IV SEVERE PAIN Last administered on 01:35; Start 06/03/16 at 02:30 Ondansetron HCl (Zofran) 4 mg PRN Q6HRS PRN IV NAUSEA/VOMITING Last administered on 06/15/16 09:03; Start 06/03/16 at 06:21 Zonisamide (Zonegran) 300 mg QHS PO Last administered on 06/10/16 21:08; Start 06/03/16 at 21:00 Gadobutrol (Gadavist) 8 mmol 1X ONCE IV Last administered on 06/03/16 14:52; Start 06/03/16 at 14:30; Stop 06/03/16 at 14:31; Status DC Baclofen (Lioresal) 10 mg PRN Q6HRS PRN PO MUSCLE SPASMS Last administered on 12:11; Start 06/03/16 at 17:30 Methylprednisolone (Medrol) 8 mg BID PO Last administered on 06/03/16 18:38; Start 06/03/16 at 09:00; Stop 06/03/16 at 21:01; Status DC Methylprednisolone (Medrol) 4 mg BIDPCLD PO Last administered on 06/03/16 18: 37; Start 06/03/16 at 12:30; Stop 06/03/16 at 17:39; Status DC Methylprednisolone (Medrol) 4 mg TIDPC PO Last administered on 06/04/16 11:21 ; Start 06/04/16 at 08:30; Stop 06/04/16 at 17:31; Status DC Methylprednisolone (Medrol) 8 mg QHS PO Last administered on 06/04/16 11:22; Start 06/04/16 at 21:00; Stop 06/04/16 at 21:01; Status DC Methylprednisolone (Medrol) 4 mg QIDAFTMEAL PO Last administered on 06/05/16 08 :52; Start 06/05/16 at 09:00; Stop 06/05/16 at 12:53; Status DC Methylprednisolone (Medrol) 4 mg TID PO ; Start 06/06/16 at 09:00; Stop 06/06/16 at 09:00; Status DC Methylprednisolone (Medrol) 4 mg BID PO Last administered on 06/07/16 07:49; Start 06/07/16 at 09:00; Stop 06/07/16 at 21:01; Status DC Methylprednisolone (Medrol) 4 mg DAILY PO Last administered on 06/08/16 08:58; Start 06/08/16 at 09:00; Stop 06/08/16 at 09:01; Status DC Pantoprazole Sodium (Protonix) 40 mg DAILYAC PO Last administered on 06/03/16 18:35; Start 06/03/16 at 18:00; Stop 06/04/16 at 06:23; Status DC Pantoprazole Sodium (Protonix) 40 mg STK-MED ONCE PO ; Start 06/04/16 at 06:02; Stop 06/04/16 at 06:03; Status DC Pantoprazole Sodium (Protonix) 40 mg DAILYAC PO Last administered on 06/10/16 08:37; Start 06/04/16 at 07:30 Gabapentin (Neurontin) 300 mg STK-MED ONCE PO ; Start 06/05/16 at 08:00; Stop 06/05/16 at 08:01; Status DC Methylprednisolone (Medrol) 12 mg 1X ONCE PO Last administered on 06/05/16 13: 18; Start 06/05/16 at 13:30; Stop 06/05/16 at 13:31; Status DC Gabapentin (Neurontin) 300 mg STK-MED ONCE PO ; Start 06/05/16 at 13:12; Stop 06/05/16 at 13:13; Status DC Gabapentin (Neurontin) 300 mg TID PO Last administered on 06/10/16 21:09; Start 06/05/16 at 14:00 Polyethylene Glycol (miraLAX PACKET) 17 gm 1X ONCE PO Last administered on 06/05 19:30; Start 06/05/16 at 19:30; Stop 06/05/16 at 19:31; Status DC Polyethylene Glycol (miraLAX PACKET) 17 gm DAILY PO Last administered on 08:53; Start 06/06/16 at 09:00 Methylprednisolone (Medrol) 12 mg 1X ONCE PO Last administered on 06/06/16 08: 30; Start 06/06/16 at 09:00; Stop 06/06/16 at 09:01; Status DC Alprazolam (Xanax) 0.25 mg PRN Q8HRS PRN PO ANXIETY / AGITATION Last administered on 06/10/16 01:03; Start 06/07/16 at 16:45 Ondansetron HCl (Zofran) 4 mg PRN Q6HRS PRN IV NAUSEA/VOMITING; Start 06/11/16 at 07:00; Stop 06/12/16 at 06:59; Status DC Fentanyl Citrate (Fentanyl 2ml Vial) 25 mcg PRN Q5MIN PRN IV MILD PAIN; Start 06/11/16 at 07:00; Stop 06/12/16 at 06:59; Status DC Fentanyl Citrate 50 mcg 50 mcg PRN Q5MIN PRN IV MODERATE PAIN Last administered on 06/11/16 12:29; Start 06/11/16 at 07:00; Stop 06/12/16 at 06:59; Status DC Lactated Ringer's (Iv Lactated Ringers) 1,000 ml @ 0 mls/hr Q0M IV Last administered on 06/11/16 08:05; Start 06/11/16 at 07:00; Stop 06/11/16 at 18:59; Status DC Lidocaine HCl 2 ml PRN 1X PRN ID PRIOR TO IV START; Start 06/11/16 at 07:00; Stop 06/12/16 at 06:59; Status DC Prochlorperazine Edisylate 5 mg 5 mg PACU PRN PRN IV NAUSEA, MRX1; Start at 07:00; Stop 06/12/16 at 06:59; Status DC Bacitracin/Sodium Chloride (Bacitracin/Iv Sodium Chloride 0.9% 1000ml Bag) 1, 000 ml @ 1,000 mls/hr 1X PERIOP ONCE IRR Last administered on 06/11/16 09:37 ; Start 06/11/16 at 06:00; Stop 06/11/16 at 06:59; Status DC Bupivacaine HCl/ Epinephrine Bitart (Sensorcain-Mpf Epi 0.5%-1:[id number]) 30 ml STK -MED ONCE .ROUTE Last administered on 06/11/16 09:37; Start 06/11/16 at 06:43; Stop 06/11/16 at 06:44; Status DC Bupivacaine HCl (Marcaine 0.5%) 50 ml STK-MED ONCE .ROUTE ; Start 06/11/16 at 06: 44; Stop 06/11/16 at 06:45; Status DC Lidocaine/ Epinephrine (Xylocaine 1%-Epi 1:100,000) 20 ml STK-MED ONCE .ROUTE ; Start 06/11/16 at 06:44; Stop 06/11/16 at 06:45; Status DC Thrombin 20,000 unit STK-MED ONCE TP Last administered on 06/11/16 09:37; Start 06/11/16 at 06:45; Stop 06/11/16 at 06:46; Status DC Gelatin 1 each 1 each STK-MED ONCE .ROUTE ; Start 06/11/16 at 06:45; Stop at 06:46; Status DC Propofol (Diprivan) 20 ml @ As Directed STK-MED ONCE IV ; Start 06/11/16 at 07:27 ; Stop 06/11/16 at 07:28; Status DC Lidocaine HCl 100 mg 100 mg STK-MED ONCE .ROUTE ; Start 06/11/16 at 07:27; Stop 06/11/16 at 07:28; Status DC Propofol (Diprivan) 50 ml @ As Directed STK-MED ONCE IV ; Start 06/11/16 at 07:27 ; Stop 06/11/16 at 07:28; Status DC Fentanyl Citrate (Fentanyl 2ml Vial) 100 mcg STK-MED ONCE .ROUTE ; Start at 07:28; Stop 06/11/16 at 07:29; Status DC Remifentanil HCl (Ultiva) 2 mg STK-MED ONCE IV ; Start 06/11/16 at 07:28; Stop at 07:29; Status DC Rocuronium [place] (Zemuron) 50 mg STK-MED ONCE .ROUTE ; Start 06/11/16 at 07:28 ; Stop 06/11/16 at 07:29; Status DC Sodium Chloride (Sodium Chloride) 50 ml STK-MED ONCE IJ ; Start 06/11/16 at 07:28 ; Stop 06/11/16 at 07:29; Status DC Succinylcholine Chloride 200 mg 200 mg STK-MED ONCE .ROUTE ; Start 06/11/16 at 07 :28; Stop 06/11/16 at 07:29; Status DC Cefazolin Sodium/ Dextrose (Ancef 2gm Premix) 50 ml @ As Directed STK-MED ONCE IV ; Start 06/11/16 at 08:28; Stop 06/11/16 at 08:29; Status DC Dexamethasone Sodium Phosphate (Decadron) 20 mg STK-MED ONCE .ROUTE ; Start 06/11 at 08:57; Stop 06/11/16 at 08:58; Status DC Desflurane 60 ml 60 ml STK-MED ONCE IH ; Start 06/11/16 at 08:57; Stop 06/11/16 at 08:58; Status DC Cefazolin Sodium/ Dextrose (Ancef 2gm Premix) 50 ml @ 100 mls/hr 1X PREOP PRN IV Pre Op Last administered on 06/11/16 09:14; Start 06/12/16 at 06:00; Stop 06/12 at 18:00; Status DC Ephedrine Sulfate 50 mg 50 mg STK-MED ONCE IV ; Start 06/11/16 at 09:33; Stop 06/11/16 at 09:34; Status DC Propofol (Diprivan) 50 ml @ As Directed STK-MED ONCE IV ; Start 06/11/16 at 10:06 ; Stop 06/11/16 at 10:07; Status DC Ondansetron HCl (Zofran) 4 mg STK-MED ONCE .ROUTE ; Start 06/11/16 at 10:07; Stop 06/11/16 at 10:08; Status DC Morphine Sulfate (Morphine Oral Solution) 5 mg PRN Q4HRS PRN PO PAIN Last administered on 06/15/16 08:09; Start 06/11/16 at 12:00 Morphine Sulfate (Morphine Oral Solution) 10 mg PRN Q4HRS PRN PO PAIN Last administered on 06/13/16 13:04; Start 06/11/16 at 12:00 Morphine Sulfate (Morphine Ir) 15 mg PRN Q4HRS PRN PO PAIN; Start 06/11/16 at 12 :00 Throat Lozenges (Chloraseptic) 1 spray PRN Q2HR PRN PO SORE THROAT; Start at 10:30 Throat Lozenges 1 hung 1 hung PRN Q2HRS PRN PO SORE THROAT; Start 06/12/16 at 10: 30 Potassium Chloride/Dextrose/ Sod Cl (KCl 20 Meq In D5W-1/2 NS) 1,000 ml @ 75 mls/hr [id number] IV Last administered on 06/15/16 04:01; Start 06/12/16 at 11:00 Active Scripts Active Reported Zofran (Ondansetron Hcl) 4 Mg Tablet 1 Tab PO Q6HRS Vimpat (Lacosamide) 10 Mg/1 Ml Solution 5 Ml PO BID Montelukast Sodium Tablet (Montelukast Sodium) 10 Mg Tablet 10 Mg PO HS Amitiza (Lubiprostone) 24 Mcg Capsule 1 Cap PO BID Levothyroxine Sodium 100 Mcg Tablet 1 Tab PO DAILY Neurontin (Gabapentin) 300 Mg Capsule 300 Mg PO TID Plavix (Clopidogrel Bisulfate) 75 Mg Tablet 1 Tab PO DAILY Vitals/I & O Vital Sign - Last 24 Hours 06/14/16 06/14/16 06/14/16 06/14/16 11:00 13:21 15:00 16:00 Temp 98.5 98.3 98.5 98.3 Pulse 93 83 Resp 16 16 B/P 127/78 126/78 Pulse Ox 94 94 O2 Delivery Room Air Room Air Room Air Room Air 06/14/16 06/14/16 06/14/16 06/14/16 19:15 20:00 20:53 21:53 Pulse 74 Resp 20 16 16 B/P 116/64 Pulse Ox 100 100 100 O2 Delivery Room Air Room Air Room Air Room Air 06/14/16 06/15/16 06/15/16 06/15/16 23:03 01:35 02:05 03:06 Temp 98.0 97.9 98.0 97.9 Pulse 76 77 Resp 20 16 16 18 B/P 109/58 116/60 Pulse Ox 96 96 95 95 O2 Delivery Room Air Room Air Room Air Room Air 06/15/16 06/15/16 06/15/16 06/15/16 05:13 07:00 08:09 10:08 Temp 98.0 98.0 Pulse 83 Resp 14 B/P 123/68 Pulse Ox 94 96 O2 Delivery Room Air Room Air Room Air Room Air Intake and Output 06/14/16 06/14/16 06/15/16 15:00 23:00 07:00 Intake Total 20 ml 40 ml Balance 20 ml 40 ml OMNTY CASTILLO MD Jun 15, 2016 10:15
--- NOTE | 2016-06-15 20:35 | DS ---
DATE OF DISCHARGE: 06/15/2016 HISTORY OF PRESENT ILLNESS: The patient is resting, is a 50-year-old female patient, who was transferred from [facility] where she came complaining of weakness, recurrent falls. She was evaluated by the Neurology team, medical doctor md/medical director, and neurosurgical team. She had an MRI, which showed that she has cervical spinal stenosis at C4-C5 level with the radiological evidence of cervical spinal stenosis, more so at C3-C4 with spastic paraparesis and frequent falls. She has also chronic neck and lower back pain from cervical paraspinal and posterior shoulder girdle and lumbar paraspinous muscle strain. She was evaluated by the neurosurgical team and underwent anterior cervical diskectomy and fusion of the cervical C3-C4 and cervical C4-C5 utilizing an Amendia anterior instrumentation with use of a structural allograft fusion substrate at both locations. Her postoperative period was complicated by marked dysphagia and swelling of her neck. She did have difficulty swallowing initially and we used Cepacol throat lozenges and was started on a clear liquid diet, and she did actually very well and her diet was advanced and tolerated very well. She has been up and about walking and a decision was made to discharge her home and to follow with her primary care physician. PHYSICAL EXAMINATION: GENERAL: When I examined her today, she looked well and was clearly in no apparent respiratory distress, slightly pale, but no jaundice, cyanosis, or thyromegaly. No jugular venous distention. No limb edema. VITAL SIGNS: Her heart rate was 83, blood pressure was 123/68, temperature was 98, respiratory rate was 14 and oxygen saturation was 96% on room air. HEAD, EYES, EARS, NOSE, AND THROAT: Showed normocephalic, atraumatic. NECK: Supple with surgical wound covered with dressing. The soft tissue swelling is much less pronounced. HEART: Showed normal first and second heart sounds with no gallop, rub, or murmur. CHEST: Clear to auscultation. No crepitation or rhonchi. ABDOMEN: Distended, soft, nontender. NEUROLOGIC: She is awake, alert, responding appropriately. Cranial nerves intact. She moves extremities without difficulty. She ambulates without assistance or assistive devices. LABORATORY DATA: Her lab work this morning showed a white cell count 9200, hemoglobin 11, hematocrit 35, MCV 76, and platelet count 314,000. Her chemistry showed a serum sodium 141, potassium 3.8, chloride 107, bicarbonate 27, anion gap of 7, BUN 10, creatinine 0.7, estimated GFR was 88 mL per minute. Her glucose was 96, calcium was 8.5. Total bilirubin, AST, ALT, alkaline phosphatase were normal. Her total protein was 6.6, albumin was 2.9. DISCHARGE MEDICATIONS: The patient was discharged home to continue on following medications: Alprazolam 0.25 mg 1 tablet 3 times a day as needed; Plavix 75 mg once a day; gabapentin 300 mg 3 times a day; lacosamide 10 mg/1 mL, she takes 50 mg twice a day; levothyroxine sodium 100 mcg 1 tablet once a day; Amitiza 24 mcg once a day; Singulair 1 tablet once a day; ondansetron for Zofran 4 mg every 6 hours as needed. She is also on Roxanol 20 mg/1 mL to take 5 mg every 4 hours as needed. FINAL DISCHARGE DIAGNOSES: Cervical stenosis with myelopathy, paresthesias with cervical disk herniation, status post anterior cervical diskectomy and fusion at cervical C2-C3 and cervical C4-C5 utilizing an Amendia anterior instrumentation with use of structural allograft fusion substrate at both locations. 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 GLADYS PHILLIP MD DR: JANIS/lexis JOB#: [id number] / [id number]
== END 2016-06-15 10:55 | disposition home or self-care (01) | DRG 471 ==
LOC: 6 SOUTH 18:50 → 4 NORTH 06-11 10:53
PROVIDERS: ADMIT Internal Medicine; ATTEND Internal Medicine
PROC: 0RB30ZZ Excision of Cervical Vertebral Disc, Open Approach (ICD-10-PCS; 2016-06-11)
PROC: 0RG20K0 Fusion of 2 or more Cervical Vertebral Joints with Nonautologous Tissue Substitute, Anterior Approach, Anterior Column, Open Approach (ICD-10-PCS; principal; 2016-06-11 08:30)
DX: M48.02 Spinal stenosis, cervical region (principal); E43 Unspecified severe protein-calorie malnutrition; N18.6 End stage renal disease; N39.0 Urinary tract infection, site not specified; I69.354 Hemiplegia and hemiparesis following cerebral infarction affecting left non-dominant side; G82.20 Paraplegia, unspecified; M47.12 Other spondylosis with myelopathy, cervical region; Z68.30 Body mass index [BMI] 30.0-30.9, adult; E03.9 Hypothyroidism, unspecified; E11.22 Type 2 diabetes mellitus with diabetic chronic kidney disease; E11.649 Type 2 diabetes mellitus with hypoglycemia without coma; E66.01 Morbid (severe) obesity due to excess calories; G40.909 Epilepsy, unspecified, not intractable, without status epilepticus; G56.03 Carpal tunnel syndrome, bilateral upper limbs; G60.9 Hereditary and idiopathic neuropathy, unspecified; G89.29 Other chronic pain; J45.909 Unspecified asthma, uncomplicated; K59.00 Constipation, unspecified; R29.6 Repeated falls; M50.20 Other cervical disc displacement, unspecified cervical region; M50.30 Other cervical disc degeneration, unspecified cervical region; Z82.49 Family history of ischemic heart disease and other diseases of the circulatory system; Z83.3 Family history of diabetes mellitus; Z87.891 Personal history of nicotine dependence; Z90.710 Acquired absence of both cervix and uterus; Z91.018 Allergy to other foods; Z88.8 Allergy status to other drugs, medicaments and biological substances; Z91.013 Allergy to seafood; Z91.040 Latex allergy status; Z88.6 Allergy status to analgesic agent; Z98.84 Bariatric surgery status
CPT/HCPCS: 36415; 70490; 72146; 72156; 72158; 76000; 80048; 80053; 81001; 82550; 82607; 82947; 84443; 85027; 85651; 86141; 88304; 88311; 94250; 94640; 94760; 95816; A9585; C1713; J0330; J0690; J1100; J2270; J2405; J2704; J3010; J3490; J7030; J7120; J7509; 92610; 97116; 97530; 97535

== ENCOUNTER → 2016-06-17 | Outpatient (CLI) | payer OTHER ==
[2016-06-15 07:00] VITALS: BP 123/68
[~2016-06-17] MED LIST: ALBU2.5V14 NEB; ALBU8.5H5 IH; ALPR0.254 PO; BUDE10.22 IH; CLOP75TA27 PO; GABA-586 PO; LACO10SO PO; LEVO100T5 PO; LUBI24CA5 PO; MONT10TA9 PO; MORP10SO PO; MORP15TA PO; ONDA4TAB10 PO; ONDA4TAB7 PO; PROM25TA10 PO; ZONI100C PO
--- NOTE | 2016-06-17 14:31 | RAD ---
Cervical spine, 3 views, 06/17/2016: History: Shoulder pain, previous surgery There are bilateral pedicle screws at C5, C6 and C7 attached to posterior fixation rods. There is an anterior fixation plate attached to the C3, C4 and C5 vertebral bodies via 2 screws at each level. Radiopaque disc spacers are present at C3-4 and C4-5. The vertebral body alignment appears to be anatomic. There is moderate disc space narrowing at C6-7 with moderate anterior and posterior spurring. There are moderate degenerative changes involving scattered facet joints bilaterally. Mild prevertebral soft tissue swelling is noted, compatible with the given history that the anterior spinal fusion surgery was recent IMPRESSION: 1. Postsurgical findings as described above. 2. Moderate multilevel degenerative change.
--- NOTE | 2016-06-17 15:00 | RAD ---
Left shoulder, 3 views, 06/17/2016: History: Left shoulder pain No fracture or dislocation is identified. There is mild spurring along the glenoid rim. There are sclerotic and cystic changes at rotator cuff insertion sites on the greater tuberosity. The periarticular soft tissues are unremarkable. IMPRESSION: 1. Mild degenerative change. 2. No acute abnormality is detected.
== END | disposition home or self-care (01) ==
LOC: RAD 10:11
PROVIDERS: ATTEND Neurological Surgery
DX: M47.812 Spondylosis without myelopathy or radiculopathy, cervical region (principal)
CPT/HCPCS: 72040; 73030

== ENCOUNTER 2016-06-19 01:08 | Observation (INO) | payer OTHER ==
[~2016-06-19] VITALS: Ht 167.6 cm; Wt 84.1 kg
[~2016-06-19 01:08] MED LIST changes: -ALBU2.5V14 NEB; -ALBU8.5H5 IH; -BUDE10.22 IH; -MORP10SO PO; -MORP15TA PO; -ONDA4TAB10 PO; -PROM25TA10 PO; -ZONI100C PO
[2016-06-19 02:57] VITALS: BP 118/78
[2016-06-19] MEDS ORDERED: PROM25TA10 PO (03:04)
[2016-06-19] MEDS ORDERED: BUDE10.22 IH (03:04)
[2016-06-19] MEDS ORDERED: ZONI100C PO (03:04)
[2016-06-19] MEDS ORDERED: ALBU8.5H5 IH (03:04)
[2016-06-19] MEDS ORDERED: MORP15TA PO (03:04)
[2016-06-19] MEDS ORDERED: ALBU2.5V14 NEB (03:04)
[2016-06-19] MEDS ORDERED: ONDA4TAB10 PO (03:04)
[2016-06-19] MEDS ORDERED: ONDANSETRON ODT 4 MG TAB.RAPDIS. PO PRN (03:30)
[2016-06-19] MEDS ORDERED: MORP10SO PO (03:43)
[2016-06-19] MEDS ORDERED: PROMETHAZINE 12.5 MG TABLET. PO PRN (03:45)
[2016-06-19] MEDS ORDERED: ALBUTEROL SULFATE 2.5 MG/3 ML NEBU. NEB PRN ×2 (03:45→10:30)
[2016-06-19] MEDS ORDERED: MORPHINE SULFATE 10 MG/5 ML ORAL SOLUTION. PO PRN (03:45)
[2016-06-19] MEDS: LEVOTHYROXINE 100 MCG TABLET PO SCH ×2 (06:22→06:34)
[2016-06-19 07:00] VITALS: BP 106/64
[2016-06-19] MEDS ORDERED: BUDESONIDE 0.5 MG/2 ML NEBU. NEB SCH (08:00)
[2016-06-19] MEDS: ALBUTEROL SULFATE 2.5 MG/3 ML NEBU. NEB SCH ×3 (08:25→15:56)
[2016-06-19] MEDS: LUBIPROSTONE 8 MCG CAPSULE PO SCH ×2 (08:59→17:40)
[2016-06-19] MEDS ORDERED: LACOSAMIDE PO SCH (09:00)
[2016-06-19] MEDS ORDERED: CLOPIDOGREL BISULFATE 75 MG TABLET PO SCH (09:00)
[2016-06-19] MEDS: MORPHINE IR 15 MG TABLET PO SCH ×2 (09:00→11:40)
[2016-06-19] MEDS ORDERED: NON FORMULARY ITEM (Budesonide/Formoterol Fumarate (Symbicort 80-4.5 Mcg Inhaler) 1 PUFF) IH SCH (09:00)
[2016-06-19] MEDS: GABAPENTIN 300 MG CAPSULE. PO SCH ×2 (09:01→17:40)
[2016-06-19] MEDS: ALPRAZolam 0.5 MG TABLET PO SCH ×2 (09:02→11:40)
[2016-06-19] MEDS ORDERED: hydrALAZINE 20 MG/ML VIAL. IVP PRN (10:30)
[2016-06-19] MEDS ORDERED: ONDANSETRON PF 4 MG/2 ML VIAL. IV PRN (10:30)
[2016-06-19] MEDS ORDERED: ACETAMINOPHEN 325 MG TABLET. PO PRN (10:30)
[2016-06-19 10:54] VITALS: BP 112/73
[2016-06-19 15:00] VITALS: BP 120/68
--- NOTE | 2016-06-19 18:39 | PDOC1 ---
History and Physical Date of Admission Date of Admission 06/19/16 11 am History of Present Illness History of Present Illness A 50 female with hx of seizures, and left side weakness, presented to the ER with new complaints of more weakness in left upper extremity and face for 1 day. says she also noted to have seizure like activity, old records reviewed, pt was here in the hospital 2 days ago and DC home. 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, hypothyroidism, morbid obesity, obstructive sleep apnea, chronic obstructive pulmonary disease/bronchial asthma, epilepsy, bilateral carpal tunnel syndrome Family History Family History: Hypertension Social History Smoke: No ALCOHOL: none Current Medications Current Medications Current Medications Medications (Trade) Dose Ordered Sig/Jude Start Time Stop Time Status Last Admin Dose Admin Acetaminophen (Tylenol) 325 mg PRN Q6HRS PRN 06/19/16 10:30 Albuterol Sulfate (Ventolin Neb Soln) 2.5 mg PRN Q4HRS PRN 06/19/16 10:30 06/19/16 10:32 DC Alprazolam (Xanax) 0.5 mg TID 06/19/16 09:00 06/19/16 09:02 0.5 MG Budesonide (Pulmicort) 0.5 mg RTBID 06/19/16 08:00 06/19/16 08:25 0.5 MG Clopidogrel Bisulfate (Plavix) 75 mg DAILY 06/19/16 09:00 06/19/16 09:02 75 MG Gabapentin (Neurontin) 300 mg TID 06/19/16 09:00 06/19/16 17:40 300 MG Hydralazine HCl (Apresoline) 10 mg PRN Q4HRS PRN 06/19/16 10:30 Levothyroxine Sodium (Synthroid) 100 mcg DAILY07 06/19/16 07:00 Lubiprostone (Amitiza) 24 mcg BIDWMEALS 06/19/16 08:00 06/19/16 17:40 24 MCG Montelukast Sodium (Singulair) 10 mg HS 06/19/16 21:00 Morphine Sulfate (Morphine Ir) 15 mg TID 06/19/16 09:00 Morphine Sulfate (Morphine Oral Solution) 5 mg PRN Q4HRS PRN 06/19/16 03:45 Non-Formulary Medication 5 ml BID 06/19/16 09:00 Ondansetron HCl (Zofran Odt) 4 mg PRN BID PRN 06/19/16 03:30 06/19/16 04:52 4 MG Ondansetron HCl (Zofran) 4 mg PRN Q8HRS PRN 06/19/16 10:30 Promethazine HCl (Phenergan) 25 mg PRN Q6HRS PRN 06/19/16 03:45 06/19/16 09:02 25 MG Zonisamide (Zonegran) 300 mg HS 06/19/16 21:00 Allergies Allergies Allergies Coded Allergies Type Severity Reaction Last Updated Verified coconut Allergy Intermediate 06/19/16 Yes latex Allergy Intermediate 06/11/16 Yes shellfish derived Allergy Intermediate 06/19/16 Yes aspirin Allergy Mild 06/11/16 Yes codeine Allergy Mild 06/11/16 Yes hydromorphone Allergy Mild 06/11/16 Yes iron Allergy Mild 06/11/16 Yes oxycodone Allergy Mild 06/11/16 Yes strawberry Allergy Mild 06/11/16 Yes tetracycline Allergy Mild 06/11/16 Yes ROS Review of System CONSTITUTIONAL: No fever or chills EYES: No recent changes SKIN: No rash or itching CARDIOVASCULAR: No chest pain, syncope, palpitations, or edema RESPIRATORY: No SOB or cough GASTROINTESTINAL: No nausea, vomiting or abdominal pain NEUROLOGICAL: weakness on left side vs seizures, ENDOCRINE: No cold or heat intolerance GENITOURINARY: No urgency or frequency of urination MUSCULOSKELETAL: No back pain or joint pain LYMPHATICS: No enlarged lymph nodes PSYCHIATRIC: No anxiety or depression Physical Exam Physical Exam GEN.: No apparent distress. Alert and oriented.drowsy, following commands, slow HEENT: Head is normocephalic, atraumatic, anterior surgical site clear NECK: Supple. no jvd LUNGS: Clear to auscultation. HEART: RRR, S1, S2 present. Peripheral pulses intact ABDOMEN: Soft, nontender. Positive bowel sounds. EXTREMITIES: Without any cyanosis. NEUROLOGIC: Normal speech, decreased strength in LUE, 4/5 PSYCHIATRIC: Drowsy, SKIN: Vitals Vitals Vital Signs Date Time Temp Pulse Resp B/P Pulse Ox O2 Delivery O2 Flow Rate FiO2 06/19/16 15:58 Nasal Cannula 1.0 06/19/16 15:00 97.6 84 18 120/68 96 97.6 VTE Prophylaxis Ordered VTE Prophylaxis Devices: Yes VTE Pharmacological Prophylaxi: Yes Assessment/Plan Assessment/Plan ? new weakness of left side ? 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 PT/OT Fall precautions prn duonebs supportive care ZHEN WAHL MD Jun 19, 2016 18:39
[2016-06-19 19:52] VITALS: BP 95/65
[2016-06-19] MEDS ORDERED: ZONISAMIDE 100 MG CAPSULE. PO SCH (21:00)
[2016-06-19] MEDS ORDERED: MONTELUKAST SODIUM 10 MG TABLET. PO SCH (21:00)
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
--- NOTE | 2016-06-28 00:11 | DS ---
DATE OF DISCHARGE: 06/19/2016 DISCHARGE DIAGNOSES: 1. Questionable weakness on the left side, suspected due to stress. No cerebrovascular accident seen on exam. 2. History of cervical stenosis with myelopathy and paresthesias. 3. Recent status post anterior cervical diskectomy and fusion at C2-C3 and C4-C5. BRIEF HOSPITAL COURSE: A 50-year-old female patient with prior history of cervical stenosis with myelopathy and anterior cervical diskectomy, admitted to the hospital for questionable seizure-like activity and left-sided weakness; however, it could be due to her stress as CVA is ruled out. She had imaging studies and it was evaluated by Neurology, Dr. Orosco; as per his impression, the patient might have stress and no CVA is noted, and also, the patient might have some somatic complaints. Most of her chronic conditions are stable and the patient has been sent home in stable condition and plan has been discussed with the patient's family member at bedside, agreeable to take her home. DISCHARGE PHYSICAL EXAMINATION: GENERAL: Alert and oriented x 3. DISCHARGE CONDITION: Stable. DISCHARGE FOLLOWUP: With the primary care doctor. Total time spent for discharge is 35 minutes. DISCHARGE MEDICATIONS: Please see the MRAD. ZHEN WAHL MD DR: GRANT/lexis JOB#: [id number] / [id number] LULY
== END 2016-06-19 20:36 | disposition home or self-care (01) ==
LOC: INTOOBSV 02:06 → 6 SOUTH 02:06
PROVIDERS: ADMIT Internal Medicine Hematology & Oncology; ATTEND Internal Medicine Hematology & Oncology
DX: G95.9 Disease of spinal cord, unspecified (principal); I69.354 Hemiplegia and hemiparesis following cerebral infarction affecting left non-dominant side; I63.9 Cerebral infarction, unspecified; E03.9 Hypothyroidism, unspecified; E66.9 Obesity, unspecified; G47.33 Obstructive sleep apnea (adult) (pediatric); J45.909 Unspecified asthma, uncomplicated; G40.909 Epilepsy, unspecified, not intractable, without status epilepticus; J44.9 Chronic obstructive pulmonary disease, unspecified; R40.0 Somnolence; G56.03 Carpal tunnel syndrome, bilateral upper limbs
CPT/HCPCS: 94250; 94640; G0378; G0379; Q0162; Q0169

== ENCOUNTER → 2016-09-29 | Outpatient (CLI) | payer OTHER ==
[~2016-09-29] MED LIST changes: +ALBU2.5V14 NEB; +ALBU8.5H8 IH; +BUDE10.22 IH; -CLOP75TA27 PO; +CLOP75TA57 PO; +GADOBUTROL 7.5 MMOL/7.5 ML VIAL IV ONE; -LUBI24CA5 PO; +LUBI24CA7 PO; +MORP10SO PO; +MORP15TA PO; +ONDA4TAB10 PO; +PROM25TA10 PO; +ZONI100C PO
--- NOTE | 2016-09-29 16:37 | KCIC ---
MRI of the cervical spine without and with contrast 09/29/2016 CLINICAL HISTORY: Neck pain with paresthesias. History of previous cervical spine surgeries. TECHNIQUE: Unenhanced T1-weighted, T2-weighted and inversion recovery sagittal and gradient echo, T2-weighted and T1-weighted axial images of the cervical spine were obtained. After the intravenous administration of 7.5 cc of Gadavist, enhanced T1-weighted sagittal and axial images of the cervical spine were obtained. FINDINGS: Comparison is made to radiographs of the cervical spine dated 09/16/2016. Mild lateral curvature of the cervical spine is seen convex to the left. There is straightening of the normal cervical lordosis. The patient is status post anterior discectomy and fusion using an anterior plate, bone screws and bone graft material at C3-4 and C4-5. The patient is status post laminectomy and posterolateral fusion using pedicle screws and stabilizing rods at C5-6 and C6-7. Degenerative signal changes are seen involving the remaining discs of the cervical spine. Degenerative signal changes are seen within the marrow surrounding these discs. Loss of height of the C5-6 and C6-7 discs is noted. No area of abnormal signal intensity is seen involving the cervical spinal cord. No area of abnormal contrast enhancement is seen. At the C2-3 disc space there is a minimal generalized disc bulge. Degenerative changes are seen involving the uncovertebral and facet joints bilaterally. These findings do not result in significant central spinal canal or neural foraminal stenosis. At the C3-4 disc space there is a mild generalized disc bulge. Degenerative changes are seen involving the uncovertebral and facet joints, right greater than left. These findings efface the anterior CSF without resulting in significant central spinal canal stenosis. Mild right neural foraminal stenosis is seen. The left neural foramen is patent. At the C4-5 disc space there is a mild generalized disc bulge. Degenerative changes are seen involving the uncovertebral and facet joints, right greater than left. These findings when combined do not result in significant central spinal canal stenosis. Mild right neural foraminal stenosis is seen. The left neural foramen is patent. At the C5-6 and C6-7 disc spaces there are mild generalized disc bulges. Degenerative changes are seen involving the uncovertebral and facet joints bilaterally. These findings when do not result in significant central spinal canal or neural foraminal stenosis. At the C7-T1 disc space there is a minimal generalized disc bulge. Degenerative changes are seen involving the facet joints bilaterally. These findings do not result in significant central spinal canal or neural foraminal stenosis. IMPRESSION: 1. Extensive postsurgical changes are seen throughout the cervical spine as outlined above. 2. Degenerative changes are seen throughout the cervical disc spaces. These findings do not result in significant central spinal canal stenosis at any level. Mild right neural foraminal stenosis is seen at C3-4 and C4-5. Electronically signed by: Taran Del Rio MD (09/29/2016 4:34 PM) [id number]
== END | disposition home or self-care (01) ==
LOC: KCIC MRI 11:50
PROVIDERS: ATTEND Neurological Surgery
DX: M50.30 Other cervical disc degeneration, unspecified cervical region (principal); M99.81 Other biomechanical lesions of cervical region
CPT/HCPCS: 72156; 82565; A9585

== ENCOUNTER → 2016-12-21 | Outpatient (CLI) | payer OTHER ==
[~2016-12-21] MED LIST changes: +GADOBUTROL 10 MMOL/10 ML VIAL IV ONE; -GADOBUTROL 7.5 MMOL/7.5 ML VIAL IV ONE
--- NOTE | 2016-12-21 16:56 | KCIC ---
MRI of the Brain without and with Contrast 12/21/2016 Clinical History: Seizures with intractable migraine headaches. Technique: Unenhanced T1-weighted sagittal and axial and FLAIR, T2-weighted, gradient echo and diffusion-weighted axial images of the brain were obtained. Additionally thin section T2-weighted and FLAIR coronal images of the temporal lobes were obtained. After the intravenous administration of 8 cc of Gadavist, enhanced T1-weighted axial and coronal images of the brain were obtained. Findings: Comparison is made to a CT scan of the abdomen dated 12/18/2016. The ventricles and sulci are within normal limits in size and configuration. No area of abnormal signal intensity is seen involving the brain parenchyma. No abnormal area of contrast enhancement is seen. No extra-axial fluid collection is noted. There is no MRI evidence of acute ischemia/infarction. Images through the temporal lobes are within normal limits bilaterally. The paranasal sinuses are essentially clear. There is a minimal left mastoid effusion Normal flow voids are seen within the major vascular structures surrounding the brain parenchyma. Impression: Essentially negative study. Electronically signed by: Taran Del Rio MD (12/21/2016 4:52 PM) [id number]
== END | disposition home or self-care (01) ==
LOC: KCIC MRI 14:35
PROVIDERS: ATTEND Psychiatry & Neurology Neurology with Special Qualifications in Child Neurology
DX: G43.019 Migraine without aura, intractable, without status migrainosus (principal); R56.9 Unspecified convulsions
CPT/HCPCS: 70553; A9585

== ENCOUNTER → 2017-03-28 | Outpatient (CLI) | payer OTHER | END | disposition home or self-care (01) | LOC: KCIC MRI 12:39 | DX: M48.02 Spinal stenosis, cervical region (principal); M25.78 Osteophyte, vertebrae; R22.1 Localized swelling, mass and lump, neck | CPT/HCPCS: 72141 ==

== ENCOUNTER → 2018-06-13 | Outpatient (CLI) | payer OTHER ==
[~2018-06-13] MED LIST changes: +ALBU2.5V8 IH; -ALBU8.5H8 IH; -GABA-586 PO; +GABA300C18 PO; -GADOBUTROL 10 MMOL/10 ML VIAL IV ONE
--- NOTE | 2018-06-13 13:40 | RAD ---
Cervical spine radiograph 06/13/2018 INDICATION: Cervical spondylosis. COMPARISON: MRI cervical spine March 28, 2017 TECHNIQUE: 2 views of the cervical spine including AP and lateral views of the cervical spine are provided. FINDINGS: Intracervical discectomy and fusion hardware is identified from C3 through C5 with anterior plate and screws. No lucency is identified surrounding the hardware. Posterior fusion is identified from C5 through C7 with bilateral facet screws and dual rods. No lucency is identified surrounding the hardware. Laminectomy changes are identified from C5 through C7. Moderate uncovertebral joint disease is noted within the upper cervical spine. Mild prevertebral soft tissue swelling is identified in the lower cervical spine measuring up to 17 mm in maximal thickness, borderline. Hardware is intact. IMPRESSION: Anterior and posterior fusion hardware is identified within the cervical spine, as detailed above. No acute fracture or evidence for hardware failure. Electronically signed by: Loretta Parra MD (06/13/2018 1:37 PM) [id number]
== END | disposition home or self-care (01) ==
LOC: RAD 09:38
PROVIDERS: ATTEND Psychiatry & Neurology Neurology with Special Qualifications in Child Neurology
DX: M47.812 Spondylosis without myelopathy or radiculopathy, cervical region (principal)
CPT/HCPCS: 72040